=== PATIENT | male | born 1975 | race Caucasian/White ===

== ENCOUNTER 2018-05-28 13:54 | Emergency (ER) | payer OTHER ==
--- NOTE | 2018-05-28 14:16 | ER Document Report ---
ED Medical Screen (RME) - General Chief Complaint: Swelling of Lower Extremity Stated Complaint: LEG/ANKLE SWELLING Time Seen by Provider: 05/28/18 13:59 Notes: 42-year-old male, morbidly obese to the emergency department complaining of persistent left foot and left lower extremity swelling. Had a fusion of his ankle along time ago. Is still in a walking boot a year later. States he had an ultrasound done about 5 months ago and that was negative. Never had a repeat ultrasound done. I have greeted and performed a rapid initial assessment of this patient. A comprehensive ED assessment and evaluation of the patient, analysis of test results and completion of the medical decision making process will be conducted by additional ED providers. TRAVEL OUTSIDE OF THE [place] IN LAST 30 DAYS: No - Related Data Allergies/Adverse Reactions: morphine [Morphine] Allergy (Verified 05/28/18 13:54) Hallucinations Past Medical History - Past Medical History Cardiac Medical History: Reports: Hx Hypertension Pulmonary Medical History: Reports: Hx Pneumonia - bilat Renal/ Medical History: Reports: Hx Kidney Stones. Denies: Hx Peritoneal Dialysis Skin Medical History: Reports Hx Psoriasis Past Surgical History: Reports: Hx Orthopedic Surgery - R KNEE X 3, R THUMB X2, L WRIST Physical Exam - Vital signs Vitals: Temp Pulse Resp BP Pulse Ox 98.9 F 81 22 H 178/83 H 92 05/28/18 14:16 05/28/18 14:16 05/28/18 14:16 05/28/18 14:16 05/28/18 14:16 Course - Vital Signs Vital signs: Temp Pulse Resp BP Pulse Ox 98.9 F 81 22 H 178/83 H 92 05/28/18 14:16 05/28/18 14:16 05/28/18 14:16 05/28/18 14:16 05/28/18 14:16
[2018-05-28 14:18] VITALS: BP 178/83
--- NOTE | 2018-05-28 14:53 | RADIOLOGY REPORT (SQ) ---
EXAM DESCRIPTION: ANKLE LEFT AP/LATERAL COMPLETED DATE/TIME: 05/28/2018 2:35 pm REASON FOR STUDY: pain COMPARISON: None. NUMBER OF VIEWS: Three views. TECHNIQUE: AP, lateral, and oblique radiographic images acquired of the left ankle. LIMITATIONS: None. FINDINGS: MINERALIZATION: Normal. BONES: There is a metallic screw extending through the calcaneus into the talus consistent with posts urgical change from prior fusion. Metallic plate and screws in the anterior talus noted. Plantar ca lcaneal bone spur. JOINTS: No effusions. SOFT TISSUES: No soft tissue swelling. No foreign body. OTHER: No other significant finding. IMPRESSION: Postfusion changes of the left ankle. Plantar calcaneal bone spur. TECHNICAL DOCUMENTATION: JOB ID: [id number] 2010 [employer]- All Rights Reserved Reading location - IP/workstation name: [email or web address]
--- NOTE | 2018-05-28 14:57 | RADIOLOGY REPORT (SQ) ---
EXAM DESCRIPTION: FOOT LEFT 2 VIEWS COMPLETED DATE/TIME: 05/28/2018 2:35 pm REASON FOR STUDY: pain COMPARISON: None. NUMBER OF VIEWS: Three views. TECHNIQUE: AP, lateral and oblique radiographic images acquired of the left foot. LIMITATIONS: None. FINDINGS: MINERALIZATION: Normal. BONES: There is evidence of metallic screws extending through the calcaneus into the talus and a meta llic screw extending through the anterior talus with plate noted along the anterior superior aspect o f the talus with screws. Degenerative changes at the talotibial joint. Plantar calcaneal bone spur. JOINTS: No effusions. SOFT TISSUES: Marked soft tissue swelling of the dorsum of the left foot. OTHER: No other significant finding. IMPRESSION: Postsurgical changes of the anterior talus and postfusion changes of the posterior taloc alcaneal joint. Marked soft tissue swelling dorsum of left foot. TECHNICAL DOCUMENTATION: JOB ID: [id number] SC-[id number] 2010 [employer]- All Rights Reserved Reading location - IP/workstation name: [email or web address]
--- NOTE | 2018-05-28 15:15 | ER Document Report ---
ED Extremity Problem, Lower - General Chief Complaint: Swelling of Lower Extremity Stated Complaint: LEG/ANKLE SWELLING Time Seen by Provider: 05/28/18 13:59 Information source: Patient Notes: Patient is a 42-year-old male who states last April, 1 year ago, he had a left ankle fusion at [facility] by Dr. Blackburn. Patient states since the surgery he has some continued swelling and pain to that left ankle. He states it is not increased over this last month. He states it is worse when he is on his feet at work all day. He states it is better when he wears his brace. Patient denies any fevers or vomiting. He denies any chest pain or shortness of breath. Patient does state that he has some baseline swelling to both legs, but the left leg is always larger than the right. TRAVEL OUTSIDE OF THE [place] IN LAST 30 DAYS: No - HPI Patient complains to provider of: Swelling - See above Location: Ankle - See above Occurred: Other - See above Where: Home Onset/Duration: Persistent Quality of pain: Dull Severity: Moderate Pain Level: 2 Context: Other - See above Recent injury: No Associated symptoms: Other - See above Exacerbated by: Nothing Relieved by: Nothing - Related Data Allergies/Adverse Reactions: morphine [Morphine] Allergy (Verified 05/28/18 13:54) Hallucinations Past Medical History - General Information source: Patient - Social History Smoking Status: Current Every Day Smoker Cigarette use (# per day): No Chew tobacco use (# tins/day): No Smoking Education Provided: No Frequency of alcohol use: None Family History: None - ADOPTED Patient has suicidal ideation: No Patient has homicidal ideation: No - Past Medical History Cardiac Medical History: Reports: Hx Hypertension Pulmonary Medical History: Reports: Hx Pneumonia - bilat Renal/ Medical History: Reports: Hx Kidney Stones. Denies: Hx Peritoneal Dialysis Skin Medical History: Reports Hx Psoriasis Past Surgical History: Reports: Hx Orthopedic Surgery - R KNEE X 3, R THUMB X2, L WRIST Review of Systems - Review of Systems Constitutional: denies: Fever EENT: denies: Eye discharge, Nose discharge Cardiovascular: denies: Chest pain, Palpitations Respiratory: denies: Cough, Hurts to breathe, Short of breath Gastrointestinal: denies: Vomiting Genitourinary: denies: Dysuria Skin: denies: Rash Neurological/Psychological: Other - no slurred speech -: Yes All other systems reviewed and negative Physical Exam - Vital signs Vitals: Temp Pulse Resp BP Pulse Ox 98.9 F 81 22 H 178/83 H 92 05/28/18 14:16 05/28/18 14:16 05/28/18 14:16 05/28/18 14:16 05/28/18 14:16 Notes: Reviewed vital signs and nursing note as charted by RN. CONSTITUTIONAL: Alert and oriented and responds appropriately to questions. Well -appearing; well-nourished HEAD: Normocephalic; atraumatic CARD: Regular rate and rhythm; no murmurs, no gallops RESP: Normal chest excursion without splinting or tachypnea; breath sounds clear and equal bilaterally; no wheezing or rales BACK: The back appears normal and is non-tender to palpation EXT: Patient has some bilateral lower extremity edema that is 1+ pitting. Patient's left lower extremity is larger than his right. No obvious skin breakdown or erythema noted. No fluctuance or induration. Patient is able to fully range of motion his toes, ankle, and knee SKIN: No acute lesions noted NEURO: Moves all extremities equally; Motor and sensory function intact PSYCH: The patient's mood and manner are appropriate. Grooming and personal hygiene are appropriate Course - Re-evaluation Re-evalutation: 05/28/18 15:15 Given the above history and physical examination with the chronicity of the lower extremity edema bilaterally, I will order some basic labs including a BNP. Regarding the left ankle, I do believe a Doppler ultrasound to evaluate for DVT would be beneficial. I do not believe that the patient has any obvious acute infection and the patient agrees with this given that he states he has had no fevers, increased swelling or redness, or vomiting. Patient states he does have a primary care physician that he should follow-up with any also has not seen the surgeon recently. He has both of the phone numbers for both of these providers. EKG shows heart of 70, normal sinus rhythm, normal axis, no obvious ST elevation or depression. 05/28/18 16:24 Doppler ultrasound is negative for DVT 05/28/18 17:02 White blood cell count and chemistry as recorded. X-ray of the foot and ankle social and soft tissue swelling with no obvious displacement. X-ray of the chest shows normal heart size with no obvious pleural effusions. Given the above history and physical examination I will provide the patient a new foot brace and dressings, provide strict return precautions as well as local orthopedic follow-up instructions. I have encouraged the patient to follow-up with the primary care physician as well as his initial orthopedic surgeon. Patient understands these instructions. - Vital Signs Vital signs: Temp Pulse Resp BP Pulse Ox 98.9 F 81 22 H 178/83 H 92 05/28/18 14:16 05/28/18 14:16 05/28/18 14:16 05/28/18 14:16 05/28/18 14:16 - Laboratory Result Diagrams: 05/28/18 16:28 05/28/18 16:28 Laboratory results interpreted by me: 05/28/18 05/28/18 16:28 16:28 MCH 26.7 L RDW 14.9 H Sodium 146.2 H Discharge - Discharge Clinical Impression: Swelling of lower leg Left ankle pain Qualifiers: Chronicity: acute Qualified Code(s): M25.572 - Pain in left ankle and joints of left foot Condition: Good Disposition: HOME, SELF-CARE Additional Instructions: Come back immediately with any increased swelling, fevers, increased redness, chest pain, shortness of breath, weakness or numbness, or any other acute problems. Please follow-up with your primary care physician, Ms. mckee, as well as contact orthopedic surgeon. I have also provided a local orthopedic surgeon as well. Referrals: MICKI MCKEE PA-C [Primary Care Provider] - Follow up as needed JIL SARAH MD [ACTIVE STAFF] - Follow up as needed
--- NOTE | 2018-05-28 15:57 | RADIOLOGY REPORT (SQ) ---
EXAM DESCRIPTION: CHEST 2 VIEWS COMPLETED DATE/TIME: 05/28/2018 3:26 pm REASON FOR STUDY: 5, lower ext edema COMPARISON: 07/26/2015. EXAM PARAMETERS: NUMBER OF VIEWS: two views TECHNIQUE: Digital Frontal and Lateral radiographic views of the chest acquired. RADIATION DOSE: NA LIMITATIONS: none FINDINGS: LUNGS AND PLEURA: No acute infiltrate or effusion. MEDIASTINUM AND HILAR STRUCTURES: No masses or contour abnormalities. HEART AND VASCULAR STRUCTURES: The heart is normal. The pulmonary vasculature is normal. BONES: No acute findings. HARDWARE: None in the chest. OTHER: No other significant finding. IMPRESSION: No acute disease. TECHNICAL DOCUMENTATION: JOB ID: [id number] SC-69 2010 [employer]- All Rights Reserved Reading location - IP/workstation name: [email or web address]
[2018-05-28 16:42] LABS: ABSOLUTE EOSINOPHILS # (AUTO) 0.2 10^3/uL (0.0-0.6); ABSOLUTE LYMPHOCYTES (AUTO) 1.1 10^3/uL (0.5-4.7); ABSOLUTE MONOCYTES (AUTO) 0.6 10^3/uL (0.1-1.4); ABSOLUTE NEUT (AUTO) 6.4 10^3/uL (1.7-8.2); BASOPHILS % (AUTO) 0.6 % (0-2); EOSINOPHILS % (AUTO) 1.9 % (0-6); HEMATOCRIT 42.8 % (37.9-51.0); HEMOGLOBIN 14.1 g/dL (13.5-17.0); LYMPHOCYTES % (AUTO) 13.4 % (13-45); MEAN CORPUSCULAR HEMOGLOBIN 26.7 pg (27.0-33.4); MEAN CORPUSCULAR HGB CONC 32.9 g/dL (32.0-36.0); MEAN CORPUSCULAR VOLUME 81 fl (80-97); MONOCYTES % (AUTO) 7.1 % (3-13); PLATELET COUNT 227 10^3/uL (150-450); RED BLOOD COUNT 5.28 10^6/uL (4.35-5.55); RED CELL DISTRIBUTION WIDTH 14.9 % (11.5-14.0); TOTAL CELLS COUNTED % (AUTO) 100 %; WHITE BLOOD COUNT 8.4 10^3/uL (4.0-10.5)
[2018-05-28 16:50] LABS: ANION GAP 13 (5-19); BLOOD UREA NITROGEN 12 mg/dL (7-20); CALCIUM 9.2 mg/dL (8.4-10.2); CARBON DIOXIDE 29 mmol/L (22-30); CHLORIDE 104 mmol/L (98-107); GLUCOSE 105 mg/dL (75-110); POTASSIUM 3.6 mmol/L (3.6-5.0); SODIUM 146.2 mmol/L (137-145)
--- NOTE | 2018-05-29 10:02 | EKG REPORT ---
SEVERITY:- NORMAL ECG - SINUS RHYTHM : Confirmed by: Chi Pereira 29-May-2018 10:02:10
--- NOTE | 2018-05-29 15:04 | XCELERA REPORT ---
[address] [address] Lower Extremity Venous Evaluation Name: JENNA GALLAGHER Age: 42 yrs Gender: Male : 1975 Patient Status: Emergency Patient Location: ER Study Date: 05/28/2018 03:47 PM Procedure: Color flow and duplex imaging of the veins of the left lower extremity as well as the right Common Femoral vein. Reason For Study: swelling for 1 year Ordering Physician: RICHARD GUY Performed By: Hiren Elder Right Sided Venous Evaluation The right common femoral vein is fully compressible. Spontaneous and phasic flow is present in the right common femoral vein. Left Sided Venous Evaluation Normal vessel filling wall to wall, compression and augmentation as well as Colour flow down to the infrageniculate veins. Interpretation Summary No duplex evidence of DVT or obstruction in the left lower extremity nor in the right Common Femoral vein. : RICHARD GUY [place]
== END 2018-05-28 17:25 | disposition home or self-care (01) ==
LOC: ER 13:54
DX: M79.89 Other specified soft tissue disorders (principal); M25.572 Pain in left ankle and joints of left foot; R60.0 Localized edema; Z98.1 Arthrodesis status; F17.200 Nicotine dependence, unspecified, uncomplicated; I10 Essential (primary) hypertension; Z88.5 Allergy status to narcotic agent
CPT/HCPCS: 36415; 71046; 80048; 83880; 85025; 93005; 93010; 93971; 99284

== ENCOUNTER 2019-01-20 12:43 | Emergency (ER) | payer OTHER ==
[2019-01-20] MEDS ORDERED: ASPIRIN 325 MG TABLET PO ONE (15:15)
--- NOTE | 2019-01-20 15:17 | ER Document Report ---
ED Medical Screen (RME) - General Chief Complaint: Chest Pain Stated Complaint: CHEST PAIN Time Seen by Provider: 01/20/19 15:15 Primary Care Provider: MICKI MOONEY PA-C [Primary Care Provider] - Follow up as needed Mode of Arrival: Ambulatory Information source: Patient TRAVEL OUTSIDE OF THE [place] IN LAST 30 DAYS: No - HPI Patient complains to provider of: CP Onset: Yesterday - pt with onset of CP yessterday with SOB which has continued into today - Related Data Allergies/Adverse Reactions: morphine [Morphine] Allergy (Verified 05/28/18 13:54) Hallucinations Past Medical History - Past Medical History Cardiac Medical History: Reports: Hx Hypertension Pulmonary Medical History: Reports: Hx Pneumonia - bilat Renal/ Medical History: Reports: Hx Kidney Stones. Denies: Hx Peritoneal Dialysis Skin Medical History: Reports Hx Psoriasis Past Surgical History: Reports: Hx Orthopedic Surgery - R KNEE X 3, R THUMB X2, L WRIST Physical Exam - Vital signs Vitals: Temp Pulse Resp BP Pulse Ox 98.0 F 75 24 H 171/98 H 96 01/20/19 13:07 01/20/19 13:07 01/20/19 13:07 01/20/19 13:07 01/20/19 13:07 Course - Vital Signs Vital signs: Temp Pulse Resp BP Pulse Ox 98.0 F 75 24 H 171/98 H 96 01/20/19 13:07 01/20/19 13:07 01/20/19 13:07 01/20/19 13:07 01/20/19 13:07 Doctor's Discharge - Discharge Referrals: MICKI MOONEY PA-C [Primary Care Provider] - Follow up as needed
--- NOTE | 2019-01-20 16:04 | RADIOLOGY REPORT (SQ) ---
EXAM DESCRIPTION: CHEST 2 VIEWS COMPLETED DATE/TIME: 01/20/2019 3:57 pm REASON FOR STUDY: CP COMPARISON: [id number] EXAM PARAMETERS: NUMBER OF VIEWS: two views TECHNIQUE: Digital Frontal and Lateral radiographic views of the chest acquired. RADIATION DOSE: NA LIMITATIONS: none FINDINGS: LUNGS AND PLEURA: No opacities, masses or pneumothorax. No pleural effusion. MEDIASTINUM AND HILAR STRUCTURES: No masses or contour abnormalities. HEART AND VASCULAR STRUCTURES: Heart normal size. No evidence for failure. BONES: No acute findings. HARDWARE: None in the chest. OTHER: No other significant finding. IMPRESSION: NO ACUTE RADIOGRAPHIC FINDING IN THE CHEST. TECHNICAL DOCUMENTATION: JOB ID: [id number] [employer]- All Rights Reserved Reading location - IP/workstation name: [email or web address]
[2019-01-20 16:40] LABS: ABSOLUTE EOSINOPHILS # (AUTO) 0.1 10^3/uL (0.0-0.6); ABSOLUTE LYMPHOCYTES (AUTO) 1.2 10^3/uL (0.5-4.7); ABSOLUTE MONOCYTES (AUTO) 0.6 10^3/uL (0.1-1.4); ABSOLUTE NEUT (AUTO) 5.2 10^3/uL (1.7-8.2); BASOPHILS % (AUTO) 0.6 % (0-2); EOSINOPHILS % (AUTO) 1.8 % (0-6); HEMATOCRIT 42.7 % (37.9-51.0); HEMOGLOBIN 14.4 g/dL (13.5-17.0); MEAN CORPUSCULAR HEMOGLOBIN 27.4 pg (27.0-33.4); MEAN CORPUSCULAR HGB CONC 33.9 g/dL (32.0-36.0); MEAN CORPUSCULAR VOLUME 81 fl (80-97); MONOCYTES % (AUTO) 7.8 % (3-13); PLATELET COUNT 194 10^3/uL (150-450); RED BLOOD COUNT 5.28 10^6/uL (4.35-5.55); SEGMENTED NEUTROPHILS % (AUTO) 72.8 % (42-78); TOTAL CELLS COUNTED % (AUTO) 100 %; WHITE BLOOD COUNT 7.2 10^3/uL (4.0-10.5)
[2019-01-20 16:53] LABS: ALANINE AMINOTRANSFERASE 44 U/L (21-72); ALKALINE PHOSPHATASE 93 U/L (38-126); ANION GAP 10 (5-19); ASPARTATE AMINO TRANSFERASE 28 U/L (17-59); BILIRUBIN,DIRECT 0.1 mg/dL (0.0-0.4); BILIRUBIN,TOTAL 0.4 mg/dL (0.2-1.3); BLOOD UREA NITROGEN 16 mg/dL (7-20); CALCIUM 9.3 mg/dL (8.4-10.2); CARBON DIOXIDE 28 mmol/L (22-30); CHLORIDE 105 mmol/L (98-107); CREATINE KINASE 294 U/L (55-170); GLUCOSE 108 mg/dL (75-110); POTASSIUM 3.9 mmol/L (3.6-5.0); SODIUM 143.3 mmol/L (137-145); TOTAL PROTEIN 6.8 g/dL (6.3-8.2)
[2019-01-20 17:05] LABS: CREATINE KINASE MB 1.52 ng/mL (<4.55)
[2019-01-20 17:18] LABS: TROPONIN I < 0.012 ng/mL
[2019-01-20] MEDS ORDERED: KETOROLAC TROMETHAMINE 60 MG/2 ML SDV IM ONE (20:45)
--- NOTE | 2019-01-20 20:53 | ER Document Report ---
ED General - General Chief Complaint: Chest Pain Stated Complaint: CHEST PAIN Time Seen by Provider: 01/20/19 15:15 Primary Care Provider: MICKI MOONEY PA-C [Primary Care Provider] - Follow up in 3-5 days Mode of Arrival: Ambulatory Notes: Patient is a 43-year-old male with past medical history of morbid obesity, sleep apnea, lymphedema, presents with stabbing left-sided chest discomfort. Patient describes the pain as starting this morning, being a stabbing, intermittent discomfort. Describes it as being moderate in intensity. Patient describes that the pain comes and goes. No obvious triggering or alleviating factor. Denies a history of similar symptoms in the past. States that he has not had any associated diaphoresis, nausea, vomiting but has intimately felt somewhat short of breath. No history of DVT or pulmonary embolus. No cardiac history. No trauma to the chest wall. Has not seen his primary care physician regarding today's concerns. TRAVEL OUTSIDE OF THE [place] IN LAST 30 DAYS: No - Related Data Allergies/Adverse Reactions: morphine [Morphine] Allergy (Verified 05/28/18 13:54) Hallucinations Past Medical History - General Information source: Patient - Social History Smoking Status: Never Smoker Chew tobacco use (# tins/day): No Frequency of alcohol use: Occasional Drug Abuse: None Lives with: Spouse/Significant other Family History: Reviewed & Not Pertinent Patient has suicidal ideation: No Patient has homicidal ideation: No - Past Medical History Cardiac Medical History: Reports: Hx Hypertension Pulmonary Medical History: Reports: Hx Pneumonia - bilat Renal/ Medical History: Reports: Hx Kidney Stones. Denies: Hx Peritoneal Dialysis Skin Medical History: Reports Hx Psoriasis Past Surgical History: Reports: Hx Orthopedic Surgery - R KNEE X 3, R THUMB X2, L WRIST Review of Systems - Review of Systems Notes: Constitutional: Negative for fever. HENT: Negative for sore throat. Eyes: Negative for visual changes. Cardiovascular: Positive for chest pain. Respiratory: Positive for shortness of breath. Gastrointestinal: Negative for abdominal pain, vomiting or diarrhea. Genitourinary: Negative for dysuria. Musculoskeletal: Negative for back pain. Skin: Negative for rash. Neurological: Negative for headaches, weakness or numbness. 10 point ROS negative except as marked above and in HPI. Physical Exam - Vital signs Vitals: Temp Pulse Resp BP Pulse Ox 98.0 F 75 24 H 171/98 H 96 03/29/19 13:07 01/20/19 13:07 01/20/19 13:07 01/20/19 13:07 01/20/19 13:07 Interpretation: Hypertensive Notes: PHYSICAL EXAMINATION: GENERAL: Well-appearing, well-nourished and in no acute distress. HEAD: Atraumatic, normocephalic. EYES: Pupils equal round and reactive to light, extraocular movements intact, sclera anicteric, conjunctiva are normal. ENT: nares patent, oropharynx clear without exudates. Moist mucous membranes. NECK: Normal range of motion, supple without lymphadenopathy LUNGS: Breath sounds clear to auscultation bilaterally and equal. No wheezes rales or rhonchi. HEART: Regular rate and rhythm without murmurs ABDOMEN: Soft, morbidly obese abdomen, nontender, normoactive bowel sounds. No guarding, no rebound. No masses appreciated. EXTREMITIES: Normal range of motion, bilateral lower extremity edema more prominent on the left versus the right which patient states is baseline. NEUROLOGICAL: No focal neurological deficits. Moves all extremities spontaneously and on command. PSYCH: Normal mood, normal affect. SKIN: Warm, Dry, normal turgor, no rashes or lesions noted. Course - Re-evaluation Re-evalutation: 01/20/19 20:51 Presentation of chest pain in an otherwise well appearing patient. Low clinical suspicion for ACS given clinical history, exam, EKG without ST elevations or depressions, and negative initial troponin. HEART score less than or equal to 3. PE also seems unlikely given clinical history, absence of tachycardia . Patient is PERC criteria negative. D-dimer sent in triage is noted to be normal. CXR without evidence of pneumothorax or pneumonia. No widened mediastinum. Aortic dissection also seems unlikely given history, symmetric pulses, CXR, and vitals. Delta troponin remains normal. Chest pain is likewise reproducible on palpation of the left chest appears to be most probably musculoskeletal in origin although I have informed the patient this is not a definitive diagnosis. Overall assessment: chest pain in a patient without evidence of cardiac or other serious etiology on workup today. I discussed with patient that, based on their age, risk factors and emergency department testing today, the likelihood that their symptoms are related to a heart attack is very low (estimated risk of heart attack or over the next 30 days of less than 1%). The patient demonstrates decision making capacity and has verbalized an understanding of these risks to me. Based on this, the patient has chosen to follow-up as an outpatient. Usual chest pain return precautions reviewed. The patient states understanding and agreement with this plan. - Vital Signs Vital signs: Temp Pulse Resp BP Pulse Ox 98.5 F 75 19 168/102 H 92 01/20/19 22:06 01/20/19 13:07 01/20/19 22:01 01/20/19 22:01 01/20/19 22:01 - Laboratory Result Diagrams: 01/20/19 16:20 01/20/19 16:20 Laboratory results interpreted by me: 01/20/19 01/20/19 16:20 16:20 RDW 15.0 H Creatine Kinase 294 H - Diagnostic Test Radiology reviewed: Image reviewed, Reports reviewed Radiology results interpreted by me: 01/20/19 20:51 Chest x-ray: No acute infiltrate or pneumothorax - EKG Interpretation by Me Additional EKG results interpreted by me: 01/20/19 20:51 Sinus rhythm, rate 72. No ST elevations or depressions. QTC is 430. Discharge - Discharge Clinical Impression: Morbid obesity, Essential hypertension Chest pain Qualifiers: Chest pain type: unspecified Qualified Code(s): R07.9 - Chest pain, unspecified Condition: Good Disposition: HOME, SELF-CARE Additional Instructions: You were seen today for chest pain. The exact cause of your pain is unclear. However, based on your cardiac enzyme testing, chest x-ray, and EKG it does not appear that it is from an immediately life-threatening cause at this time. Although your testing here is normal is critical that you follow-up with your primary care physician for continued evaluation of this chest pain and possible stress testing. I recommended you see your physician within the next 24-48 hours to be evaluated for consideration of a stress test. Please return to emergency department immediately if you have worsening of your chest pain, shortness of breath, vomiting, become unable to exert yourself due to pain or difficulty breathing, you pass out, or have any pain that radiates into your arms, jaw, or back. Please also return if you have any additional symptoms that are concerning to you. Referrals: MICKI MOONEY PA-C [Primary Care Provider] - Follow up in 3-5 days
--- NOTE | 2019-01-20 21:03 | EKG REPORT ---
SEVERITY:- NORMAL ECG - SINUS RHYTHM : Confirmed by: Dalia Rutherford MD 20-Jan-2019 21:02:36
[2019-01-20 22:05] VITALS: BP 168/102
== END 2019-01-20 22:06 | disposition home or self-care (01) ==
LOC: ER 12:43
DX: R07.9 Chest pain, unspecified (principal); R06.02 Shortness of breath; I10 Essential (primary) hypertension; E66.01 Morbid (severe) obesity due to excess calories; R60.0 Localized edema; Z88.5 Allergy status to narcotic agent
CPT/HCPCS: 93005; 99284; 96372; 36415; 82553; 82550; 85025; 80053; 84484; 85379; 71046; 93010; J1885

== ENCOUNTER 2019-10-27 15:28 | Inpatient (IN) | payer OTHER ==
--- NOTE | 2019-10-27 16:17 | ER Document Report ---
ED Medical Screen (RME) - General Chief Complaint: Shortness Of Breath Stated Complaint: LEG SWELLING/TROUBLE BREATHING Time Seen by Provider: 10/27/19 16:11 Primary Care Provider: MICKI MOONEY PA-C [Primary Care Provider] - Follow up as needed Notes: Patient is a 44-year-old male who presents to the emergency department with shortness of breath, difficulty breathing, and left lower leg pain. Patient has a history of lymphedema and states that his leg pain started about 3 days ago and his shortness of breath started yesterday. Exam: Diminished breath sounds bilateral lobes. Edema noted to bilateral lower extremities, left greater than right. I have greeted and performed a rapid initial assessment of this patient. A comprehensive ED assessment and evaluation of the patient, analysis of test results and completion of medical decision making process will be conducted by an additional ED providers. TRAVEL OUTSIDE OF THE [place] IN LAST 30 DAYS: No - Related Data Allergies/Adverse Reactions: morphine [Morphine] Allergy (Verified 10/27/19 16:05) Hallucinations Home Medications: [facility] Past Medical History - Social History Frequency of alcohol use: Rare Drug Abuse: None - Past Medical History Cardiac Medical History: Reports: Hx Hypertension Pulmonary Medical History: Reports: Hx Pneumonia - bilat Renal/ Medical History: Reports: Hx Kidney Stones. Denies: Hx Peritoneal Dialysis Skin Medical History: Reports Hx Psoriasis Past Surgical History: Reports: Hx Orthopedic Surgery - R KNEE X 3, R THUMB X2, L WRIST Doctor's Discharge - Discharge Referrals: MICKI MOONEY PA-C [Primary Care Provider] - Follow up as needed
[2019-10-27 17:20] LABS: VENOUS BLOOD BASE EXCESS 4.1 mmol/L; VENOUS BLOOD HCO3 28.4 mmol/L (20-32); VENOUS BLOOD PCO2 41.2 mmHg (35-63); VENOUS BLOOD PH 7.46 (7.30-7.42)
--- NOTE | 2019-10-27 17:33 | RADIOLOGY REPORT (SQ) ---
EXAM DESCRIPTION: VENOUS UNILATERAL LOWER COMPLETED DATE/TIME: 10/27/2019 5:19 pm REASON FOR STUDY: RLE pain COMPARISON: None. TECHNIQUE: Dynamic and static nunez scale and color images acquired of the left leg venous system. Se lected spectral images acquired with additional compression and augmentation maneuvers. The contralat eral common femoral vein and saphenofemoral junction were also imaged. Images stored on PACS. LIMITATIONS: Portions of distal superficial vein are not able to be identified due to body habitus. FINDINGS: COMMON FEMORAL: Normal phasicity, compression and augmentation. No visualized echogenic ma terial on nunez scale. No defects on color images. FEMORAL: Normal compression and augmentation. No visualized echogenic material on nunez scale. No defe cts on color images. POPLITEAL: Normal compression, augmentation. No visualized echogenic material on nunez scale. No defec ts on color images. CALF VESSELS: Normal compression, augmentation. No visualized echogenic material on nunez scale. No de fects on color images. GSV and SSV: Normal compression, augmentation. No visualized echogenic material on nunez scale. No def ects on color images. ANY DEEP VENOUS INSUFFICIENCY: Not evaluated. ANY EVIDENCE OF POPLITEAL CYST: No. OTHER: No other significant finding. CONTRALATERAL COMMON FEMORAL VEIN AND SAPHENOFEMORAL JUNCTION: Normal phasicity, compression and augmentation. No visualized echogenic material on nunez scale. No de fects on color images. IMPRESSION: NO EVIDENCE DVT OR SVT IN THE LEFT LEG.Portions of distal superficial vein are not able to be identified due to body habitus. TECHNICAL DOCUMENTATION: JOB ID: [id number] [id number] 2010 [employer]- All Rights Reserved Reading location - IP/workstation name: [email or web address]
[2019-10-27 17:37] LABS: ALBUMIN 3.3 g/dL (3.5-5.0); ALKALINE PHOSPHATASE 70 U/L (38-126); ANION GAP 9 (5-19); ASPARTATE AMINO TRANSFERASE 62 U/L (17-59); BILIRUBIN,DIRECT 0.3 mg/dL (0.0-0.4); BILIRUBIN,TOTAL 0.6 mg/dL (0.2-1.3); BLOOD UREA NITROGEN 30 mg/dL (7-20); CARBON DIOXIDE 29 mmol/L (22-30); CHLORIDE 98 mmol/L (98-107); CREATINE KINASE 1153 U/L (55-170); GLUCOSE 130 mg/dL (75-110); HEMATOCRIT 37.4 % (37.9-51.0); HEMOGLOBIN 12.4 g/dL (13.5-17.0); MEAN CORPUSCULAR HEMOGLOBIN 26.4 pg (27.0-33.4); MEAN CORPUSCULAR HGB CONC 33.2 g/dL (32.0-36.0); MEAN CORPUSCULAR VOLUME 80 fl (80-97); PLATELET COUNT 153 10^3/uL (150-450); POTASSIUM 3.1 mmol/L (3.6-5.0); RED BLOOD COUNT 4.71 10^6/uL (4.35-5.55); RED CELL DISTRIBUTION WIDTH 15.3 % (11.5-14.0); WHITE BLOOD COUNT 18.1 10^3/uL (4.0-10.5)
--- NOTE | 2019-10-27 17:39 | RADIOLOGY REPORT (SQ) ---
EXAM DESCRIPTION: CHEST SINGLE VIEW COMPLETED DATE/TIME: 10/27/2019 5:27 pm REASON FOR STUDY: shortness of breath COMPARISON: 01/20/2019 TECHNIQUE: Single frontal radiographic view of the chest acquired. NUMBER OF VIEWS: One view. LIMITATIONS: None. FINDINGS: LUNGS AND PLEURA: No pneumothorax. Left lateral basilar consolidation - pleural effusion. MEDIASTINUM AND HILAR STRUCTURES: Stable. HEART AND VASCULAR STRUCTURES: Stable. BONES: No acute findings. HARDWARE: None in the chest. OTHER: No other significant finding. IMPRESSION: Left lateral basilar consolidation - pleural effusion. TECHNICAL DOCUMENTATION: JOB ID: [id number] [id number] 2010 [employer]- All Rights Reserved Reading location - IP/workstation name: [email or web address]
[2019-10-27 17:52] LABS: TROPONIN I 1.2 ng/mL
[2019-10-27 18:06] LABS: ABSOLUTE LYMPHOCYTES# (MANUAL) 1.3 10^3/uL (0.5-4.7); ABSOLUTE MONOCYTES # (MANUAL) 0.2 10^3/uL (0.1-1.4); ANISOCYTOSIS SLIGHT; BAND NEUTROPHILS % (MANUAL) 8 % (3-5); BASOPHILS % (MANUAL) 0 % (0-2); EOSINOPHILS % (MANUAL) 0 % (0-6); HYPOCHROMASIA SLIGHT; LYMPHOCYTES % (MANUAL) 7 % (13-45); MONOCYTES % (MANUAL) 1 % (3-13); PLATELET COMMENT ADEQUATE; SEGMENTED NEUTROPHILS % (MAN) 84 % (42-78); TOTAL CELLS COUNTED 100
[2019-10-27 18:17] LABS: A TYPE INFLUENZA AG NEGATIVE (NEGATIVE); B INFLUENZA AG NEGATIVE (NEGATIVE)
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
[2019-10-27] MEDS ORDERED: NORMAL SALINE 500 ML IV ONE (19:01)
[2019-10-27] MEDS ORDERED: NORMAL SALINE 1000 ML 1,000 ML IV ONE (19:01)
[2019-10-27] MEDS ORDERED: ONDANSETRON HCL INJ/PF 4 MG/2 ML SDV IV ONE (19:03)
[2019-10-27] MEDS ORDERED: VANCOMYCIN HCL INJ 1000 MG VIAL IV ONE ×3 (19:05→23:58)
[2019-10-27] MEDS ORDERED: DIPH/PERTUSS(ACELL)/TETANUS VAC/PF 0.5 ML SYR (>=10YO) IM ONE (19:05)
[2019-10-27] MEDS ORDERED: LEVOFLOXACIN 750 MG/D5W RTU 750 MG/150 ML RTUPB IV ONE (19:06)
--- NOTE | 2019-10-27 20:03 | EKG REPORT ---
SEVERITY:- ABNORMAL ECG - SINUS TACHYCARDIA MULTIPLE ATRIAL PREMATURE COMPLEXES PROBABLE LEFT ATRIAL ABNORMALITY BORDERLINE LEFT AXIS DEVIATION : Confirmed by: Guanako Mccormick MD 27-Oct-2019 20:02:30
--- NOTE | 2019-10-27 20:04 | EKG REPORT ---
SEVERITY:- ABNORMAL ECG - SINUS TACHYCARDIA MULTIPLE ATRIAL PREMATURE COMPLEXES BORDERLINE LEFT AXIS DEVIATION : Confirmed by: Guanako Mccormick MD 27-Oct-2019 20:02:58
[2019-10-27] MEDS: HYDROMORPHONE HCL INJ/PF 2 MG/ML AMPULE IV PRN (20:16)
[2019-10-27] MEDS ORDERED: HEPARIN SOD (PORCINE) 1,000 UNIT/ML 10 ML VIAL IV ONE (21:39)
[2019-10-27] MEDS ORDERED: HEPARIN SODIUM,PORCINE/D5W 25,000 UNIT/250 ML RTUINJ IV PRN (21:39)
[2019-10-27 23:19] LABS: INTERNATIONAL RATION (INR) 1.48
[2019-10-27 23:20] LABS: PARTIAL THROMBOPLASTIN TIME 38.9 SEC (23.5-35.8)
[2019-10-28 00:13] LABS: APPEARANCE,URINE CLEAR; BILIRUBIN,URINE NEGATIVE (NEGATIVE); COLOR,URINE YELLOW; GLUCOSE, URINE NEGATIVE (NEGATIVE); KETONES,URINE NEGATIVE (NEGATIVE); LEUKOCYTE ESTERASE,URINE NEGATIVE (NEGATIVE); NITRITE,URINE NEGATIVE (NEGATIVE); PROTEIN,URINE 30 mg/dL (NEGATIVE); URINE SPECIFIC GRAVITY 1.014; UROBILINOGEN,URINE NEGATIVE mg/dL (<2.0)
[2019-10-28] MEDS ORDERED: POTASSIUM CHLORIDE 10 MEQ TABLET.ER PO ONE (03:55)
[2019-10-28] MEDS ORDERED: ACETAMINOPHEN 325 MG TABLET PO PRN (03:59)
[2019-10-28] MEDS ORDERED: IPRATROPIUM/ALBUTEROL 0.5-2.5 MG/3 ML AMPUL NEB PRN (03:59)
[2019-10-28] MEDS ORDERED: MAG HYDROX/AL HYDROX/SIMETH SUSP 30 ML UDCUP PO PRN (03:59)
[2019-10-28 04:07] LABS: INTERNATIONAL RATION (INR) 1.34; PROTHROMBIN TIME 16.6 SEC (11.4-15.4)
[2019-10-28 04:08] LABS: PARTIAL THROMBOPLASTIN TIME 40.5 SEC (23.5-35.8)
[2019-10-28] MEDS ORDERED: METOPROLOL TARTRATE 50 MG TABLET PO ONE (04:45)
[2019-10-28] MEDS ORDERED: LOSARTAN POTASSIUM 50 MG TABLET PO ONE (04:45)
[2019-10-28 06:31] LABS: CHOLESTEROL 80.48 mg/dL (0-200); TRIGLYCERIDES 229 mg/dL (<150)
--- NOTE | 2019-10-28 06:42 | PDOC H&P ---
History of Present Illness Admission Date/PCP: 10/28/19 04:42 MICKI MOONEY PA-C Patient complains of: Fever and left leg pain History of Present Illness: JENNA GALLAGHER is a 44 year old male with a past medical history of morbid obesity, obstructive sleep apnea, diabetes, left lower extremity venous stasis, tinea pedis and debility. He presents with 2 days of flulike symptoms and increased pain and swelling to his left lower extremity. In the emergency depa rtment he is found with hypoxia and tachycardia. Concerns for DVT and PE prompted CTA chest at [facility] which was negative for PE, vascular Doppler was negative for DVT. He is referred to the hospitalist for left leg cellulitis with bandemia. Patient admits several previous episodes of cellulitis to this leg. No recent antibiotics Past Medical History Cardiac Medical History: Reports: Hypertension Pulmonary Medical History: Reports: Bronchitis, Pneumonia - bilat, Sleep Apnea Endocrine Medical History: Reports: Diabetes Mellitus Type 1, Obesity Skin Medical History: Reports: Psoriasis Past Surgical History Past Surgical History: Reports: Orthopedic Surgery - R KNEE X 3, R THUMB X2, L WRIST Social History Information Source: Patient Smoking Status: Former Smoker Electronic Cigarette use?: No - Advance Directive Resuscitation Status: Full Code Family History Family History: DM, Hypertension Parental Family History Reviewed: Yes Children Family History Reviewed: Yes Sibling(s) Family History Reviewed.: Yes Medication/Allergy Home Medications: Metoprolol Tartrate [Lopressor 25 mg Tablet] 25 mg PO Q12 #14 tab 07/26/15 Ondansetron [Zofran Odt] 8 mg PO Q8HP PRN #10 tab.rapdis 03/03/16 Tamsulosin HCl [Flomax 0.4 mg Cap.sr] 0.4 mg PO DAILY #10 cap.sr.24h 03/03/16 Allergies/Adverse Reactions: morphine [Morphine] Allergy (Verified 10/27/19 16:05) Hallucinations Review of Systems Constitutional: PRESENT: as per HPI, chills, fatigue, fever(s), weakness Eyes: ABSENT: visual disturbances Ears: ABSENT: hearing changes Cardiovascular: PRESENT: dyspnea on exertion, edema. ABSENT: chest pain, orthropnea, palpitations Respiratory: PRESENT: as per HPI. ABSENT: cough, hemoptysis, sputum Gastrointestinal: ABSENT: abdominal pain, constipation, diarrhea, hematemesis, hematochezia, nausea, vomiting Genitourinary: ABSENT: dysuria, hematuria Musculoskeletal: PRESENT: muscle weakness. ABSENT: joint swelling Integumentary: PRESENT: as per HPI, erythema. ABSENT: rash, wounds Neurological: ABSENT: abnormal gait, abnormal speech, confusion, dizziness, focal weakness, syncope Psychiatric: ABSENT: anxiety, depression, homidical ideation, suicidal ideation Endocrine: ABSENT: cold intolerance, heat intolerance, polydipsia, polyuria Hematologic/Lymphatic: ABSENT: easy bleeding, easy bruising Physical Exam Vital Signs: Temp Pulse Resp BP Pulse Ox 98.1 F 88 24 H 164/87 H 96 10/28/19 03:36 10/27/19 23:10 10/28/19 05:01 10/28/19 05:01 10/28/19 05:20 Intake & Output 10/26/19 10/27/19 10/28/19 11:59 11:59 11:59 Intake Total 1447 Balance 1447 Weight 222.6 kg General appearance: PRESENT: cooperative, disheveled, morbidly obese, severe distress, well-developed, well-nourished Head exam: PRESENT: atraumatic, normocephalic Eye exam: PRESENT: conjunctiva pink, EOMI, PERRLA. ABSENT: scleral icterus Ear exam: PRESENT: normal external ear exam Mouth exam: PRESENT: moist, tongue midline Neck exam: ABSENT: carotid bruit, JVD, lymphadenopathy, thyromegaly Respiratory exam: PRESENT: accessory muscle use, crackles, prolonged expiratory phas. ABSENT: rales, rhonchi, wheezes Cardiovascular exam: PRESENT: tachycardia. ABSENT: diastolic murmur, rubs, systolic murmur Pulses: PRESENT: normal dorsalis pedis pul Vascular exam: PRESENT: normal capillary refill GI/Abdominal exam: PRESENT: normal bowel sounds, soft. ABSENT: distended, guarding, mass, organolmegaly, rebound, tenderness Rectal exam: PRESENT: deferred Extremities exam: PRESENT: tenderness, +2 edema Neurological exam: PRESENT: alert, awake, oriented to person, oriented to place, oriented to time, oriented to situation, CN II-XII grossly intact. ABSENT: motor sensory deficit Psychiatric exam: PRESENT: appropriate affect, normal mood. ABSENT: homicidal ideation, suicidal ideation Skin exam: PRESENT: erythema, other - Underlying venous stasis with circumferential erythema from foot to knee, open ulcers on the posterior leg, fissuring and calluses of the feet Results Laboratory Results: 10/27/19 16:50 10/27/19 16:50 10/27/19 10/27/19 10/27/19 16:50 16:50 16:50 WBC 18.1 H RBC 4.71 Hgb 12.4 L Hct 37.4 L MCV 80 MCH 26.4 L MCHC 33.2 RDW 15.3 H Plt Count 153 Seg Neutrophils % Not Reportable VBG pH 7.46 H VBG pCO2 41.2 VBG HCO3 28.4 VBG Base Excess 4.1 Sodium 136.0 L Potassium 3.1 L Chloride 98 Carbon Dioxide 29 Anion Gap 9 BUN 30 H Creatinine 1.09 Est GFR ( Amer) > 60 Glucose 130 H Lactic Acid Calcium 8.0 L Magnesium 1.7 Total Bilirubin 0.6 AST 62 H Alkaline Phosphatase 70 Total Protein 6.0 L Albumin 3.3 L Urine Color Urine Appearance Urine pH Ur Specific [place] Urine Protein Urine Glucose (UA) Urine Ketones Urine Blood Urine Nitrite Ur Leukocyte Esterase Urine WBC (Auto) Urine RBC (Auto) 10/27/19 10/27/19 19:12 22:46 WBC RBC Hgb Hct MCV MCH MCHC RDW Plt Count Seg Neutrophils % VBG pH VBG pCO2 VBG HCO3 VBG Base Excess Sodium Potassium Chloride Carbon Dioxide Anion Gap BUN Creatinine Est GFR ( Amer) Glucose Lactic Acid 1.1 Calcium Magnesium Total Bilirubin AST Alkaline Phosphatase Total Protein Albumin Urine Color YELLOW Urine Appearance CLEAR Urine pH 6.0 Ur Specific [place] 1.014 Urine Protein 30 H Urine Glucose (UA) NEGATIVE Urine Ketones NEGATIVE Urine Blood MODERATE H Urine Nitrite NEGATIVE Ur Leukocyte Esterase NEGATIVE Urine WBC (Auto) 3 Urine RBC (Auto) 0 10/27/19 10/27/19 10/27/19 16:50 16:50 20:10 Creatine Kinase 1153 H Troponin I 1.200 0.986 NT-Pro-B Natriuret Pep 497 H Impressions: Chest X-Ray 10/27/19 16:18 IMPRESSION: Left lateral basilar consolidation - pleural effusion. Venous Doppler Study 10/27/19 16:19 IMPRESSION: NO EVIDENCE DVT OR SVT IN THE LEFT LEG.Portions of distal garcia perficial vein are not able to be identified due to body habitus. Assessment and Plan - Diagnosis (1) Obstructive sleep apnea Is this a current diagnosis for this admission?: Yes Plan: Avoid cervical flexion, BiPAP while sleeping (2) Diabetes Is this a current diagnosis for this admission?: Yes Plan: Outpatient regiment with Humalog sliding scale (3) Hypoxia Is this a current diagnosis for this admission?: Yes Plan: Secondary to morbid obesity hypoventilation syndrome, BiPAP and supplemental oxygen (4) Left leg cellulitis Is this a current diagnosis for this admission?: Yes Plan: Complicated by venous stasis and tinea pedis, terbinafine, elevation, empiric antibiotics, follow-up blood culture and CBC - Time Time Spent with patient: 25-34 minutes - Inpatient Certification Medical Necessity: Need Close Monitoring Due to Risk of Patient Decompensation
[2019-10-28 06:43] LABS: CREATINE KINASE MB 2.67 ng/mL (<4.55); TROPONIN I 0.542 ng/mL
[2019-10-28 06:45] LABS: DIRECT LDL < 30 mg/dL (<100); VLDL CHOLESTEROL 45.8 mg/dL (10-31)
[2019-10-28] MEDS: TERBINAFINE HCL 250 MG TABLET PO SCH (10:49)
[2019-10-28] MEDS: DOCUSATE SODIUM 100 MG CAPSULE PO SCH ×2 (10:49→18:27)
[2019-10-28] MEDS: CEFTRIAXONE 1 GM/D5W RTU 1 GM/50 ML RTUPB IV SCH (10:55)
[2019-10-28] MEDS: HEPARIN SOD (PORCINE) 5,000 UNIT/ML 1 ML VIAL SUBCUT SCH ×2 (11:03→18:31)
[2019-10-28] MEDS ORDERED: INFLUENZA QUAD (6MOS+) 2019-20 VAC 0.5 ML SYR IM ONE (15:38)
[2019-10-28 15:54] LABS: CREATINE KINASE MB 2.62 ng/mL (<4.55)
[2019-10-28 16:02] LABS: TROPONIN I 0.359 ng/mL
[2019-10-28] MEDS: GUAIFENESIN SYRP 200 MG/10 ML UDC PO PRN (16:19)
--- NOTE | 2019-10-28 19:10 | Progress Note ---
Provider Note Provider Note: Is a 44-year-old male with a past medical history of hypertension, bronchitis, morbid obesity, LIZABETH, diabetes, left lower extremity venous stasis, tenia PDA, debility who was admitted early this morning by the hull drafter for left leg cellulitis. Overnight events, vital signs, Laboratory evaluation (WBCs 18.1, hypokalemia of 3.1, CK 1153, initial troponin I 0.200, A1c 7.2), imaging reports, and orders reviewed. Agree with the plan of care as established by the previous provider. Blood cultures are pending. Patient continues on IV Rocephin and p.o. Lamisil. Keep extremity elevated. Heparin drip is discontinued as PE and DVT have been ruled out; continue subcutaneous heparin for DVT prophylaxis. Troponins are trending down
[2019-10-28] MEDS: METOPROLOL TARTRATE 50 MG TABLET PO SCH (21:04)
[2019-10-28 23:09] LABS: CREATINE KINASE MB 2.04 ng/mL (<4.55)
[2019-10-28 23:15] LABS: TROPONIN I 0.256 ng/mL
[2019-10-29] MEDS: HEPARIN SOD (PORCINE) 5,000 UNIT/ML 1 ML VIAL SUBCUT SCH ×3 (01:09→18:39)
[2019-10-29 04:38] LABS: ABSOLUTE BASOPHILS # (AUTO) 0.1 10^3/uL (0.0-0.2); ABSOLUTE LYMPHOCYTES (AUTO) 1.1 10^3/uL (0.5-4.7); ABSOLUTE NEUT (AUTO) 8.6 10^3/uL (1.7-8.2); BASOPHILS % (AUTO) 0.8 % (0-2); EOSINOPHILS % (AUTO) 0.3 % (0-6); HEMATOCRIT 38.5 % (37.9-51.0); HEMOGLOBIN 12.5 g/dL (13.5-17.0); LYMPHOCYTES % (AUTO) 9.8 % (13-45); MEAN CORPUSCULAR HEMOGLOBIN 26.3 pg (27.0-33.4); MEAN CORPUSCULAR HGB CONC 32.6 g/dL (32.0-36.0); MEAN CORPUSCULAR VOLUME 81 fl (80-97); MONOCYTES % (AUTO) 9.2 % (3-13); PLATELET COUNT 136 10^3/uL (150-450); RED BLOOD COUNT 4.78 10^6/uL (4.35-5.55); RED CELL DISTRIBUTION WIDTH 15.2 % (11.5-14.0); SEGMENTED NEUTROPHILS % (AUTO) 79.9 % (42-78); TOTAL CELLS COUNTED % (AUTO) 100 %; WHITE BLOOD COUNT 10.8 10^3/uL (4.0-10.5)
[2019-10-29 04:58] LABS: ANION GAP 8 (5-19); BLOOD UREA NITROGEN 24 mg/dL (7-20); CALCIUM 8.2 mg/dL (8.4-10.2); CARBON DIOXIDE 30 mmol/L (22-30); CHLORIDE 101 mmol/L (98-107); GLUCOSE 138 mg/dL (75-110); POTASSIUM 3.6 mmol/L (3.6-5.0)
[2019-10-29] MEDS: CEFTRIAXONE 1 GM/D5W RTU 1 GM/50 ML RTUPB IV SCH (09:12)
[2019-10-29] MEDS: TERBINAFINE HCL 250 MG TABLET PO SCH (09:13)
[2019-10-29] MEDS: LOSARTAN POTASSIUM 50 MG TABLET PO SCH (09:13)
[2019-10-29] MEDS: DOCUSATE SODIUM 100 MG CAPSULE PO SCH ×2 (09:13→18:41)
[2019-10-29] MEDS: METOPROLOL TARTRATE 50 MG TABLET PO SCH ×2 (09:13→22:45)
[2019-10-29] MEDS: GUAIFENESIN SYRP 200 MG/10 ML UDC PO PRN (10:07)
[2019-10-29] MEDS: HYDROMORPHONE HCL INJ/PF 2 MG/ML AMPULE IV PRN (10:07)
[2019-10-29] MEDS ORDERED: GLUCAGON,HUMAN RECOMB 1 MG INJ IM PRN (15:15)
[2019-10-29] MEDS ORDERED: DEXTROSE 40% GEL 15 GM TUBE PO PRN ×2 (15:15)
[2019-10-29] MEDS ORDERED: DEXTROSE 50%-WATER 25 GM/50 ML DISP.SYRIN IV PRN ×2 (15:15)
--- NOTE | 2019-10-29 15:19 | PDOC PROGRESS REPORT ---
Subjective Progress Note for:: 10/29/19 Subjective:: Is a 44-year-old male with a past medical history of hypertension, bronchitis, morbid obesity, LIZABETH, diabetes, left lower extremity venous stasis, tenia PDA, debility who was 10/28/19 for left leg cellulitis. The patient was seen on morning rounds. He was found sitting up to the chair, comfortably, on room air eating his breakfast. He reports slight worsening of edema to the left lower extremity but does note that erythema seems to have improved slightly. He does admit to prior history of lymphedema and use of compression dressings; has not followed up with lymphedema or wound care clinic in quite some time. He denies fever, chills, chest pain, palpitations, dyspnea, orthopnea, cough, abdominal pain, nausea vomiting and diarrhea. He has no new questions or concerns. No concerns per nursing. Reason For Visit: LEFT LEG CELLULITIS,MORBID OBESITY,ELEVATED TROP Physical Exam Vital Signs: Temp Pulse Resp BP Pulse Ox 97.7 F 65 18 122/60 92 10/29/19 12:11 10/29/19 12:11 10/29/19 12:11 10/29/19 12:11 10/29/19 12:11 Intake & Output 10/28/19 10/29/19 10/30/19 06:59 06:59 06:59 Intake Total 1447 1836 530 Output Total 975 500 Balance 1447 861 30 Weight 222.6 kg 199.4 kg General appearance: PRESENT: no acute distress, cooperative, disheveled, morbidly obese, well-developed, well-nourished Head exam: PRESENT: atraumatic, normocephalic Eye exam: PRESENT: conjunctiva pink, EOMI, PERRLA. ABSENT: scleral icterus Ear exam: PRESENT: normal external ear exam Mouth exam: PRESENT: moist, tongue midline Respiratory exam: PRESENT: clear to auscultation charlette, decreased breath sounds - Bibasilar, symmetrical, unlabored. ABSENT: rales, rhonchi, wheezes Cardiovascular exam: PRESENT: RRR, +S1, +S2. ABSENT: diastolic murmur, rubs, systolic murmur Pulses: PRESENT: normal dorsalis pedis pul Vascular exam: PRESENT: normal capillary refill GI/Abdominal exam: PRESENT: normal bowel sounds, soft. ABSENT: distended, guarding, mass, organolmegaly, rebound, tenderness Rectal exam: PRESENT: deferred Extremities exam: PRESENT: full ROM, +2 edema - Left lower extremity. ABSENT: calf tenderness, clubbing, pedal edema Neurological exam: PRESENT: alert, awake, oriented to person, oriented to place, oriented to time, oriented to situation, CN II-XII grossly intact. ABSENT: motor sensory deficit Psychiatric exam: PRESENT: appropriate affect, normal mood. ABSENT: homicidal ideation, suicidal ideation Skin exam: PRESENT: dry, erythema - Circumferential erythema from foot to knee; serous weeping posteriorly. Fissured calluses of bilateral feet., warm. ABSENT: cyanosis, rash Results Laboratory Results: 10/29/19 03:53 10/29/19 03:53 10/29/19 10/29/19 03:53 03:53 WBC 10.8 H RBC 4.78 Hgb 12.5 L Hct 38.5 MCV 81 MCH 26.3 L MCHC 32.6 RDW 15.2 H Plt Count 136 L Seg Neutrophils % 79.9 H Sodium 139.3 Potassium 3.6 Chloride 101 Carbon Dioxide 30 Anion Gap 8 BUN 24 H Creatinine 0.96 Est GFR ( Amer) > 60 Glucose 138 H Calcium 8.2 L 10/27/19 17:25 Throat Throat Culture - Final Group A Beta Streptococcus Normal Viki 10/27/19 10/27/19 10/27/19 16:50 16:50 20:10 Creatine Kinase 1153 H CK-MB (CK-2) Troponin I 1.200 0.986 NT-Pro-B Natriuret Pep 497 H 10/28/19 10/28/19 10/28/19 05:55 05:55 15:00 Creatine Kinase 991 H 754 H CK-MB (CK-2) 2.67 Troponin I 0.542 NT-Pro-B Natriuret Pep 10/28/19 10/28/19 10/28/19 15:00 22:29 22:29 Creatine Kinase 605 H CK-MB (CK-2) 2.62 2.04 Troponin I 0.359 0.256 NT-Pro-B Natriuret Pep Impressions: Chest X-Ray 10/27/19 16:18 IMPRESSION: Left lateral basilar consolidation - pleural effusion. Venous Doppler Study 10/27/19 16:19 IMPRESSION: NO EVIDENCE DVT OR SVT IN THE LEFT LEG.Portions of distal superficial vein are not able to be identified due to body habitus. Assessment and Plan - Diagnosis (1) Left leg cellulitis Is this a current diagnosis for this admission?: Yes Plan: Complicated by venous stasis and tinea pedis Blood cultures are negative at 24 hours. Patient is admitted to the medical floor. He is empirically placed on IV Rocephin. Continue p.o. Lamisil. Compression Jameson wrap; elevate extremity. Consider surgical consultation. (2) Diabetes Qualifiers: Diabetes mellitus type: type 2 Is this a current diagnosis for this admission?: Yes Plan: A1c is 7.2%. Patient is placed on a cardiac/consistent carb diet. Accu-Cheks before meals and at bedtime with Humalog for sliding scale coverage. Hypoglycemia protocol in place. Registered dietitian and paper products machine operator are consulted. Plan to discharge patient on metformin. (3) Obstructive sleep apnea Is this a current diagnosis for this admission?: Yes Plan: Avoid cervical flexion, BiPAP while sleeping (4) Hypoxia Is this a current diagnosis for this admission?: Yes Plan: Improved; maintains oxygen saturations on room air. Does utilize BiPAP at home. Secondary to morbid obesity hypoventilation syndrome Continue BiPAP and supplemental oxygen as needed As needed nebulizer treatments. Received call from radiology regarding CTA done at [facility] for PE r/o. Motion artifact limited the distal views and PE can not be conclusively ruled out. However, patient is maintaining saturations on room air without chest discomfort, tachypnea, or tachycardia. Low suspicion for pulmonary embolus. - Time Time Spent with patient: 15-24 minutes Medications reviewed and adjusted accordingly: Yes Anticipated discharge: Home Within: within 48 hours
[2019-10-29] MEDS ORDERED: INSULIN LISPRO 100 UNIT/ML 3 ML VIAL SUBCUT SCH (16:00)
[2019-10-29] MEDS: KETOROLAC TROMETHAMINE INJ/PF 30 MG/1 ML SDV IV PRN (16:37)
[2019-10-30] MEDS: KETOROLAC TROMETHAMINE INJ/PF 30 MG/1 ML SDV IV PRN ×3 (00:01→17:59)
[2019-10-30] MEDS ORDERED: DIPHENHYDRAMINE HCL 25 MG CAPSULE ONE (00:18)
[2019-10-30] MEDS: DIPHENHYDRAMINE HCL 25 MG CAPSULE PO PRN ×2 (00:22→18:02)
[2019-10-30] MEDS: HEPARIN SOD (PORCINE) 5,000 UNIT/ML 1 ML VIAL SUBCUT SCH ×3 (01:10→18:36)
[2019-10-30 06:02] LABS: HEMATOCRIT 38.5 % (37.9-51.0); HEMOGLOBIN 12.6 g/dL (13.5-17.0); MEAN CORPUSCULAR HEMOGLOBIN 26.2 pg (27.0-33.4); MEAN CORPUSCULAR HGB CONC 32.7 g/dL (32.0-36.0); MEAN CORPUSCULAR VOLUME 80 fl (80-97); PLATELET COUNT 157 10^3/uL (150-450); RED BLOOD COUNT 4.79 10^6/uL (4.35-5.55); RED CELL DISTRIBUTION WIDTH 15.7 % (11.5-14.0); WHITE BLOOD COUNT 9.9 10^3/uL (4.0-10.5)
[2019-10-30] MEDS: CEFTRIAXONE 1 GM/D5W RTU 1 GM/50 ML RTUPB IV SCH (09:40)
[2019-10-30] MEDS: METOPROLOL TARTRATE 50 MG TABLET PO SCH ×2 (09:42→21:22)
[2019-10-30] MEDS: LOSARTAN POTASSIUM 50 MG TABLET PO SCH (09:42)
[2019-10-30] MEDS: DOCUSATE SODIUM 100 MG CAPSULE PO SCH ×2 (09:43→18:37)
[2019-10-30] MEDS: TERBINAFINE HCL 250 MG TABLET PO SCH (10:00)
--- NOTE | 2019-10-30 16:09 | PDOC PROGRESS REPORT ---
Subjective Progress Note for:: 10/30/19 Subjective:: The patent is a 44-year-old male with a past medical history of hypertension, bronchitis, morbid obesity, LIZABETH, diabetes, left lower extremity venous stasis, tenia PDA, debility who was 10/28/19 for left leg cellulitis. The patient was seen on morning rounds. He was found sitting up to the edge of the bed, comfortably, on room air eating his breakfast. He reports pain and itching to his left lower extremity but does believe the erythema and edema have improved slightly. He is interested in starting an antidepressant as he believes that underlying depression is a motivator in his binge eating. He also asks about recommendations for medical weight loss; ideally inpatient setting if any are available. He denies fever, chills, chest pain, palpitations, dyspnea, orthopnea, cough, abdominal pain, nausea vomiting and diarrhea. He has no other questions or concerns. No concerns per nursing. Reason For Visit: LEFT LEG CELLULITIS,MORBID OBESITY,ELEVATED TROP Physical Exam Vital Signs: Temp Pulse Resp BP Pulse Ox 98.3 F 72 18 139/84 H 90 L 10/30/19 12:00 10/30/19 12:00 10/30/19 12:00 10/30/19 12:00 10/30/19 12:00 Intake & Output 10/29/19 10/30/19 10/31/19 06:59 06:59 06:59 Intake Total 1836 2790 792 Output Total 975 2800 Balance 861 -10 792 Weight 199.4 kg 200.3 kg General appearance: PRESENT: no acute distress, cooperative, morbidly obese, well-developed, well-nourished Head exam: PRESENT: atraumatic, normocephalic Eye exam: PRESENT: conjunctiva pink, EOMI, PERRLA. ABSENT: scleral icterus Ear exam: PRESENT: normal external ear exam Mouth exam: PRESENT: moist, tongue midline Respiratory exam: PRESENT: clear to auscultation chalrette, decreased breath sounds - Bibasilar, symmetrical, unlabored. ABSENT: rales, rhonchi, wheezes Cardiovascular exam: PRESENT: RRR. ABSENT: diastolic murmur, rubs, systolic murmur Vascular exam: PRESENT: normal capillary refill GI/Abdominal exam: PRESENT: normal bowel sounds, soft. ABSENT: distended, guarding, mass, organolmegaly, rebound, tenderness Rectal exam: PRESENT: deferred Extremities exam: PRESENT: full ROM, +2 edema - LLE. ABSENT: calf tenderness, clubbing, pedal edema Neurological exam: PRESENT: alert, awake, oriented to person, oriented to place, oriented to time, oriented to situation, CN II-XII grossly intact. ABSENT: motor sensory deficit Psychiatric exam: PRESENT: appropriate affect, normal mood. ABSENT: homicidal ideation, suicidal ideation Skin exam: PRESENT: dry, erythema, warm, other - Circumferential erythema from foot to knee; serous weeping posteriorly. Fissured calluses of bilateral feet. ABSENT: cyanosis, rash Results Laboratory Results: 10/30/19 04:28 10/29/19 03:53 10/30/19 04:28 WBC 9.9 RBC 4.79 Hgb 12.6 L Hct 38.5 MCV 80 MCH 26.2 L MCHC 32.7 RDW 15.7 H Plt Count 157 10/27/19 10/27/19 10/27/19 16:50 16:50 20:10 Creatine Kinase 1153 H CK-MB (CK-2) Troponin I 1.200 0.986 NT-Pro-B Natriuret Pep 497 H 10/28/19 10/28/19 10/28/19 05:55 05:55 15:00 Creatine Kinase 991 H 754 H CK-MB (CK-2) 2.67 Troponin I 0.542 NT-Pro-B Natriuret Pep 10/28/19 10/28/19 10/28/19 15:00 22:29 22:29 Creatine Kinase 605 H CK-MB (CK-2) 2.62 2.04 Troponin I 0.359 0.256 NT-Pro-B Natriuret Pep Impressions: Chest X-Ray 10/27/19 16:18 IMPRESSION: Left lateral basilar consolidation - pleural effusion. Venous Doppler Study 10/27/19 16:19 IMPRESSION: NO EVIDENCE DVT OR SVT IN THE LEFT LEG.Portions of distal superficial vein are not able to be identified due to body habitus. Assessment and Plan - Diagnosis (1) Left leg cellulitis Is this a current diagnosis for this admission?: Yes Plan: Complicated by venous stasis and tinea pedis Blood cultures are negative at 48 hours. Patient is admitted to the medical floor. He is empirically placed on IV Rocephin. Continue p.o. Lamisil. Compression Ajmeson wrap; elevate extremity. Consider surgical consultation. (2) Diabetes Qualifiers: Diabetes mellitus type: type 2 Is this a current diagnosis for this admission?: Yes Plan: A1c is 7.2%.. Dietary compliance and lifestyle modification are encouraged. Patient is placed on a cardiac/consistent carb diet. Start metformin twice daily Accu-Cheks before meals and at bedtime with Humalog for sliding scale coverage. Hypoglycemia protocol in place. Registered dietitian and family educator are consulted. Plan to discharge patient on metformin. (3) Obstructive sleep apnea Is this a current diagnosis for this admission?: Yes Plan: Avoid cervical flexion, BiPAP while sleeping Outpatient follow-up for formalized sleep study (4) Hypoxia Is this a current diagnosis for this admission?: Yes Plan: Resolved; maintains oxygen saturations on room air. Does utilize BiPAP at home. Secondary to morbid obesity hypoventilation syndrome Continue BiPAP and supplemental oxygen as needed As needed nebulizer treatments. Received call from radiology regarding CTA done at [facility] for PE r/o. Motion artifact limited the distal views and PE can not be conclusively ruled out. However, patient is maintaining saturations on room air without chest discomfort, tachypnea, or tachycardia. Low suspicion for pulmonary embolus. (5) Depression Is this a current diagnosis for this admission?: Yes Plan: Long discussion had with patient. Recommend outpatient mental health follow-up. Start Prozac 20 mg daily. (6) Morbid obesity with BMI of 50.0-59.9, adult Is this a current diagnosis for this admission?: Yes Plan: BMI 58.3. Cardiac/consistent carb diet. Lifestyle modification dietary compliance are encouraged. Discharge planning is consulted. (7) Elevated troponin Is this a current diagnosis for this admission?: Yes Plan: Likely demand mismatch ischemia secondary to hypoxia. EKG demonstrated sinus tachycardia without acute ST changes. Patient is remained stable on telemetry. No episodes of chest discomfort. Troponin has trended down from 1.200-0.256. We will consult cardiology for consideration of inpatient versus appropriateness of outpatient stress testing. Daily aspirin and statin therapy. - Time Time Spent with patient: 25-34 minutes Medications reviewed and adjusted accordingly: Yes Anticipated discharge: Home Within: within 48 hours
[2019-10-30] MEDS: METFORMIN HCL 500 MG TABLET PO SCH (18:37)
--- NOTE | 2019-10-30 21:09 | PDOC CONSULTATION ---
Consultation Consult Date: 10/30/19 Provider Consulted: JACQUELIN SAWYER Consult reason:: Elevated troponin History of Present Illness Admission Date/PCP: 10/28/19 04:42 MICKI MOONEY PA-C Patient complains of: Left lower extremity pain and swelling History of Present Illness: JENNA GALLAGHER is a 44 year old male 1. Morbid obesity 2. Sleep apnea 3. Cellulitis left lower extremity Morbidly obese male was admitted with left lower extremity cellulitis. He is being presently managed with intravenous antibiotics and local wound toilet. He had elevated troponins without chest pain and his EKG did not show evidence of myocardial ischemia. Cardiology input is requested regarding elevated troponin. At the time of my evaluation patient is not complaining of chest pain or dyspnea. No prior coronary artery disease or cardiac problem is reported. Patient does not smoke cigarettes. He occasionally drinks alcohol. Does not admit to using any drugs there is family history of hypertension.. Past Medical History Cardiac Medical History: Reports: Hypertension Pulmonary Medical History: Reports: Bronchitis, Pneumonia - bilat, Sleep Apnea Endocrine Medical History: Reports: Diabetes Mellitus Type 1, Obesity Skin Medical History: Reports: Psoriasis Psychiatric Medical History: Reports: Depression Past Surgical History Past Surgical History: Reports: Orthopedic Surgery - R KNEE X 3, R THUMB X2, L WRIST Social History Smoking Status: Former Smoker Electronic Cigarette use?: No Frequency of Alcohol Use: Occasional Hx Recreational Drug Use: No Hx Prescription Drug Abuse: No - Advance Directive Resuscitation Status: Full Code Family History Family History: DM, Hypertension Parental Family History Reviewed: Yes - Hypertension Children Family History Reviewed: Unknown Sibling(s) Family History Reviewed.: NA Medication/Allergy Home Medications: No Home Medications 10/28/19 Allergies/Adverse Reactions: morphine [Morphine] Allergy (Verified 10/27/19 16:05) Hallucinations Review of Systems Eyes: PRESENT: as per HPI Cardiovascular: PRESENT: as per HPI Respiratory: PRESENT: dyspnea Hematologic/Lymphatic: PRESENT: as per HPI Physical Exam Vital Signs: Temp Pulse Resp BP Pulse Ox 98.0 F 72 18 149/69 H 92 10/30/19 16:00 10/30/19 16:00 10/30/19 16:00 10/30/19 16:00 10/30/19 16:00 Intake & Output 10/29/19 10/30/19 10/31/19 06:59 06:59 06:59 Intake Total 1836 2790 1032 Output Total 975 2800 Balance 861 -10 1032 Weight 199.4 kg 200.3 kg 200.3 kg General appearance: PRESENT: morbidly obese Head exam: PRESENT: atraumatic, normocephalic Eye exam: PRESENT: EOMI Mouth exam: PRESENT: moist Respiratory exam: PRESENT: clear to auscultation charlette, symmetrical - Very dif ficult auscultation. Heart sounds are barely audible Cardiovascular exam: PRESENT: +S1, +S2 Pulses: PRESENT: normal radial pulses GI/Abdominal exam: PRESENT: soft Neurological exam: PRESENT: alert, awake, oriented to person, oriented to place, oriented to time, oriented to situation Psychiatric exam: PRESENT: appropriate affect Skin exam: PRESENT: other - Skin of both lower extremities looked unhealthy. Left lower extremity is bandaged. There is seepage of serous fluid through the bandages. Callused skin is noted. Skin tears are noted. Results Laboratory Results: 10/30/19 04:28 10/29/19 03:53 10/30/19 04:28 WBC 9.9 RBC 4.79 Hgb 12.6 L Hct 38.5 MCV 80 MCH 26.2 L MCHC 32.7 RDW 15.7 H Plt Count 157 10/27/19 10/27/19 10/27/19 16:50 16:50 20:10 Creatine Kinase 1153 H CK-MB (CK-2) Troponin I 1.200 0.986 NT-Pro-B Natriuret Pep 497 H 10/28/19 10/28/19 10/28/19 05:55 05:55 15:00 Creatine Kinase 991 H 754 H CK-MB (CK-2) 2.67 Troponin I 0.542 NT-Pro-B Natriuret Pep 10/28/19 10/28/19 10/28/19 15:00 22:29 22:29 Creatine Kinase 605 H CK-MB (CK-2) 2.62 2.04 Troponin I 0.359 0.256 NT-Pro-B Natriuret Pep EKG Comments: Twelve-lead EKG 10/27/2019 Sinus tachycardia 104 bpm, premature atrial contractions, normal AV conduction, QTC 440 nearly 8 seconds. Twelve-lead EKG 01/20/2019 sinus rhythm 72 bpm QTC is 430 ms Impressions: Chest X-Ray 10/27/19 16:18 IMPRESSION: Left lateral basilar consolidation - pleural effusion. Venous Doppler Study 10/27/19 16:19 IMPRESSION: NO EVIDENCE DVT OR SVT IN THE LEFT LEG.Portions of distal superficial vein are not able to be identified due to body habitus. Assessment & Plan - Diagnosis (1) Elevated troponin Is this a current diagnosis for this admission?: Yes Plan: Troponin in the setting of left lower extremity cellulitis and probably systemic infection EKG without evidence of myocardial ischemia and patient not experiencing any chest pain or cardiac symptoms whatsoever. I suspect this is not acute coronary syndrome and just general reflection of the severity of her sepsis. Would recommend treatment of infection and sepsis. Would not proceed with re-stratification during ongoing infection. Continue to treat modifiable risk factors for coronary disease. (2) Left leg cellulitis Is this a current diagnosis for this admission?: Yes Plan: Left lower extremity infection and cellulitis being managed with intravenous antibiotics and local wound toilet.
[2019-10-30] MEDS: FLUOXETINE HCL 20 MG CAPSULE PO SCH (21:22)
[2019-10-30] MEDS: ATORVASTATIN CALCIUM 20 MG TABLET PO SCH (21:22)
[2019-10-31] MEDS: HEPARIN SOD (PORCINE) 5,000 UNIT/ML 1 ML VIAL SUBCUT SCH ×3 (06:35→17:14)
[2019-10-31] MEDS: METFORMIN HCL 500 MG TABLET PO SCH ×2 (07:43→17:14)
[2019-10-31] MEDS: ASPIRIN 81 MG TABLET, CHEWABLE PO SCH (09:15)
[2019-10-31] MEDS: DOCUSATE SODIUM 100 MG CAPSULE PO SCH ×2 (09:15→17:14)
[2019-10-31] MEDS: CEFTRIAXONE 1 GM/D5W RTU 1 GM/50 ML RTUPB IV SCH (09:15)
[2019-10-31] MEDS: METOPROLOL TARTRATE 50 MG TABLET PO SCH ×2 (09:15→21:45)
[2019-10-31] MEDS: LOSARTAN POTASSIUM 50 MG TABLET PO SCH (09:15)
[2019-10-31] MEDS: KETOROLAC TROMETHAMINE INJ/PF 30 MG/1 ML SDV IV PRN (09:16)
[2019-10-31] MEDS: HYDROMORPHONE HCL INJ/PF 2 MG/ML AMPULE IV PRN (09:20)
--- NOTE | 2019-10-31 11:52 | Operative Report ---
Operative Report DATE OF SURGERY: 10/31/19 PREOPERATIVE DIAGNOSIS: Early lightest with blister formation along the left fo ot dorsum POSTOPERATIVE DIAGNOSIS: Same OPERATION: Sharp debridement of blister and some necrotic tissue the subcutaneous area with the blister sites roughly measuring about 30 cm wide by about 16 cm long. SURGEON: SHIRA PRESSLEY TISSUE REMOVED OR ALTERED: Skin blister and some necrotic tissue underneath COMPLICATIONS: None ESTIMATED BLOOD LOSS: 1 cc QUANTITATIVE BLOOD LOSS: 1 INTRAOPERATIVE FINDINGS: Extensive blister formation along the dorsum of swollen right foot measuring 30 cm wide by 16 cm long. There is some necrotic tissue underneath the skin that was also debrided. PROCEDURE: Patient apparently stepped on piece of glass about 2 weeks ago and week later he developed redness and blister formation along the left foot. He is known to have lymphedema after left ankle fusion surgery 2 years ago. There is also redness along the left ankle going to just below the knee. The blister was surgically removed with the use of scissors and blade. There was some necrotic tissue underneath blister that was also partially removed with the use of scissors and manually scraping it with forceps. There is some dark reddish discoloration on the anterior aspect. A couple of pieces of Xeroform gauze was laid on top of the debrided areas and wrapped with 4 x 4 Jameson bandage and Kerlix. Patient will need Silvadene dressing on the wound about twice a day for the next few days. Patient will eventually need compression boot to help with the lymphedema. Continue with intravenous antibiotics. Patient tolerated procedure well.
[2019-10-31] MEDS: TERBINAFINE HCL 250 MG TABLET PO SCH (14:13)
--- NOTE | 2019-10-31 16:14 | PDOC PROGRESS REPORT ---
Subjective Progress Note for:: 10/31/19 Reason For Visit: LEFT LEG CELLULITIS,MORBID OBESITY,ELEVATED TROP 10/31/2019 Patient was admitted with significant left leg cellulitis and morbid obesity Physical Exam Vital Signs: Temp Pulse Resp BP Pulse Ox 98.9 F 68 20 150/87 H 94 10/31/19 12:00 10/31/19 15:00 10/31/19 12:00 10/31/19 12:00 10/31/19 12:00 Intake & Output 10/30/19 10/31/19 11/01/19 06:59 06:59 06:59 Intake Total 3234 1476 800 Output Total 2800 2 Balance 434 1476 798 Weight 200.3 kg 200.3 kg General appearance: PRESENT: mild distress, other - Due to his cellulitis in the left leg and his obesity Respiratory exam: PRESENT: clear to auscultation charlette. ABSENT: rales, rhonchi, wheezes Cardiovascular exam: PRESENT: RRR. ABSENT: diastolic murmur, rubs, systolic murmur Extremities exam: PRESENT: +2 edema, other - Please see the note dictated by general surgery, at least 2+ edema with redness up to almost the knee. Significant blister formation about the dorsum of the foot Neurological exam: PRESENT: alert, awake, oriented to person, oriented to place, oriented to time, oriented to situation, CN II-XII grossly intact. ABSENT: motor sensory deficit Psychiatric exam: PRESENT: appropriate affect, normal mood. ABSENT: homicidal ideation, suicidal ideation Results Laboratory Results: 10/30/19 04:28 10/29/19 03:53 10/27/19 10/27/19 10/27/19 16:50 16:50 20:10 Creatine Kinase 1153 H CK-MB (CK-2) Troponin I 1.200 0.986 NT-Pro-B Natriuret Pep 497 H 10/28/19 10/28/19 10/28/19 05:55 05:55 15:00 Creatine Kinase 991 H 754 H CK-MB (CK-2) 2.67 Troponin I 0.542 NT-Pro-B Natriuret Pep 10/28/19 10/28/19 10/28/19 15:00 22:29 22:29 Creatine Kinase 605 H CK-MB (CK-2) 2.62 2.04 Troponin I 0.359 0.256 NT-Pro-B Natriuret Pep Impressions: Chest X-Ray 10/27/19 16:18 IMPRESSION: Left lateral basilar consolidation - pleural effusion. Venous Doppler Study 10/27/19 16:19 IMPRESSION: NO EVIDENCE DVT OR SVT IN THE LEFT LEG.Portions of distal superficial vein are not able to be identified due to body habitus. Assessment and Plan - Diagnosis (1) Depression Is this a current diagnosis for this admission?: Yes (2) Diabetes Qualifiers: Diabetes mellitus type: type 2 Is this a current diagnosis for this admission?: Yes (3) Elevated troponin Is this a current diagnosis for this admission?: Yes (4) Left leg cellulitis Is this a current diagnosis for this admission?: Yes (5) Morbid obesity with BMI of 50.0-59.9, adult Is this a current diagnosis for this admission?: Yes (6) Obstructive sleep apnea Is this a current diagnosis for this admission?: Yes - Plan Summary Summary: 10/31/2019 Temperature 98 pulse 73 blood pressure 149/69, also 172/91, 95% sat RA Patient is currently on IV Rocephin and p.o. Lamisil Also taking Lopressor 50 mg every 12 hours and Cozaar 100 mg daily The patient recently started on metformin due to A1c being 7.2 Patient uses BiPAP at home Discussed case with general surgery there debriding his foot, they did a area 30 x 16 cm Would like patient to remain in the hospital for IV antibiotics for several more days - Time Time Spent with patient: 25-34 minutes
[2019-10-31] MEDS: SILVER SULFADIAZINE 1% CREAM 400 GM TP SCH (20:40)
[2019-10-31] MEDS: ATORVASTATIN CALCIUM 20 MG TABLET PO SCH (21:45)
[2019-10-31] MEDS: FLUOXETINE HCL 20 MG CAPSULE PO SCH (21:45)
[2019-11-01] MEDS: HYDRALAZINE HCL INJ/PF 20 MG/1 ML SDV IV PRN ×3 (01:59→21:43)
[2019-11-01] MEDS: HEPARIN SOD (PORCINE) 5,000 UNIT/ML 1 ML VIAL SUBCUT SCH ×3 (02:11→17:14)
[2019-11-01 04:25] LABS: HEMATOCRIT 38.9 % (37.9-51.0); HEMOGLOBIN 12.9 g/dL (13.5-17.0); MEAN CORPUSCULAR HEMOGLOBIN 26.5 pg (27.0-33.4); MEAN CORPUSCULAR HGB CONC 33.3 g/dL (32.0-36.0); MEAN CORPUSCULAR VOLUME 80 fl (80-97); PLATELET COUNT 194 10^3/uL (150-450); RED BLOOD COUNT 4.89 10^6/uL (4.35-5.55); RED CELL DISTRIBUTION WIDTH 15.4 % (11.5-14.0); WHITE BLOOD COUNT 10.5 10^3/uL (4.0-10.5)
[2019-11-01 04:44] LABS: ANION GAP 5 (5-19); BLOOD UREA NITROGEN 18 mg/dL (7-20); CALCIUM 8.8 mg/dL (8.4-10.2); CARBON DIOXIDE 35 mmol/L (22-30); CHLORIDE 103 mmol/L (98-107); GLUCOSE 130 mg/dL (75-110); POTASSIUM 4.6 mmol/L (3.6-5.0)
[2019-11-01 05:08] LABS: ABSOLUTE LYMPHOCYTES# (MANUAL) 1.6 10^3/uL (0.5-4.7); ABSOLUTE MONOCYTES # (MANUAL) 0.2 10^3/uL (0.1-1.4); BASOPHILS % (MANUAL) 0 % (0-2); EOSINOPHILS % (MANUAL) 1 % (0-6); LYMPHOCYTES % (MANUAL) 15 % (13-45); MONOCYTES % (MANUAL) 2 % (3-13); SEGMENTED NEUTROPHILS % (MAN) 81 % (42-78); TOTAL CELLS COUNTED 100
[2019-11-01 05:17] LABS: PROMYELOCYTES % (MANUAL) 1 % (0)
[2019-11-01 05:19] LABS: ANISOCYTOSIS SLIGHT; PLATELET COMMENT ADEQUATE
[2019-11-01 05:20] LABS: HYPOCHROMASIA SLIGHT
[2019-11-01] MEDS: METFORMIN HCL 500 MG TABLET PO SCH ×2 (08:03→17:14)
[2019-11-01 09:28] LABS: PATH REVIEW PATHOLOGIST REVIEWED
[2019-11-01] MEDS: DOCUSATE SODIUM 100 MG CAPSULE PO SCH ×2 (09:47→17:14)
[2019-11-01] MEDS: LOSARTAN POTASSIUM 50 MG TABLET PO SCH (09:47)
[2019-11-01] MEDS: ASPIRIN 81 MG TABLET, CHEWABLE PO SCH (09:47)
[2019-11-01] MEDS: METOPROLOL TARTRATE 50 MG TABLET PO SCH ×2 (09:47→21:44)
[2019-11-01] MEDS: CEFTRIAXONE 1 GM/D5W RTU 1 GM/50 ML RTUPB IV SCH (09:48)
[2019-11-01] MEDS: SILVER SULFADIAZINE 1% CREAM 400 GM TP SCH ×2 (09:48→17:14)
[2019-11-01] MEDS: TERBINAFINE HCL 250 MG TABLET PO SCH (11:48)
--- NOTE | 2019-11-01 13:41 | PDOC PROGRESS REPORT ---
Subjective Progress Note for:: 11/01/19 Reason For Visit: LEFT LEG CELLULITIS,MORBID OBESITY,ELEVATED TROP 11/01/2019 Left leg cellulitis, morbid obesity Physical Exam Vital Signs: Temp Pulse Resp BP Pulse Ox 98.6 F 79 20 150/87 H 93 11/01/19 12:00 11/01/19 12:00 11/01/19 12:00 11/01/19 12:00 11/01/19 12:00 Intake & Output 10/31/19 11/01/19 11/02/19 06:59 06:59 06:59 Intake Total 1476 2356 50 Output Total 3702 Balance 1476 -1346 50 Weight 200.3 kg 200.3 kg General appearance: PRESENT: mild distress Respiratory exam: PRESENT: clear to auscultation charlette. ABSENT: rales, rhonchi, wheezes Cardiovascular exam: PRESENT: RRR. ABSENT: diastolic murmur, rubs, systolic murmur Extremities exam: PRESENT: pedal edema - Patient has redness up to his knee, although there does appear to be daily progress, +2 edema Neurological exam: PRESENT: alert, awake, oriented to person, oriented to place, oriented to time, oriented to situation, CN II-XII grossly intact. ABSENT: motor sensory deficit Psychiatric exam: PRESENT: appropriate affect, depressed - Patient appears to be depressed over his and her mental health issues, normal mood. ABSENT: homicidal ideation, suicidal ideation Results Laboratory Results: 11/01/19 03:49 11/01/19 03:49 11/01/19 11/01/19 03:49 03:49 WBC 10.5 RBC 4.89 Hgb 12.9 L Hct 38.9 MCV 80 MCH 26.5 L MCHC 33.3 RDW 15.4 H Plt Count 194 Seg Neutrophils % Not Reportable Sodium 143.3 Potassium 4.6 Chloride 103 Carbon Dioxide 35 H Anion Gap 5 BUN 18 Creatinine 1.04 Est GFR ( Amer) > 60 Glucose 130 H Calcium 8.8 10/27/19 10/27/19 10/27/19 16:50 16:50 20:10 Creatine Kinase 1153 H CK-MB (CK-2) Troponin I 1.200 0.986 NT-Pro-B Natriuret Pep 497 H 10/28/19 10/28/19 10/28/19 05:55 05:55 15:00 Creatine Kinase 991 H 754 H CK-MB (CK-2) 2.67 Troponin I 0.542 NT-Pro-B Natriuret Pep 10/28/19 10/28/19 10/28/19 15:00 22:29 22:29 Creatine Kinase 605 H CK-MB (CK-2) 2.62 2.04 Troponin I 0.359 0.256 NT-Pro-B Natriuret Pep Impressions: Chest X-Ray 10/27/19 16:18 IMPRESSION: Left lateral basilar consolidation - pleural effusion. Venous Doppler Study 10/27/19 16:19 IMPRESSION: NO EVIDENCE DVT OR SVT IN THE LEFT LEG.Portions of distal superficial vein are not able to be identified due to body habitus. Assessment and Plan - Diagnosis (1) Depression Is this a current diagnosis for this admission?: Yes (2) Diabetes Qualifiers: Diabetes mellitus type: type 2 Is this a current diagnosis for this admission?: Yes (3) Elevated troponin Is this a current diagnosis for this admission?: Yes (4) Left leg cellulitis Is this a current diagnosis for this admission?: Yes (5) Morbid obesity with BMI of 50.0-59.9, adult Is this a current diagnosis for this admission?: Yes (6) Obstructive sleep apnea Is this a current diagnosis for this admission?: Yes - Plan Summary Summary: 10/31/2019 Temperature 98 pulse 73 blood pressure 149/69, also 172/91, 95% sat RA Patient is currently on IV Rocephin and p.o. Lamisil Also taking Lopressor 50 mg every 12 hours and Cozaar 100 mg daily The patient recently started on metformin due to A1c being 7.2 Patient uses BiPAP at home Discussed case with general surgery there debriding his foot, they did a area 30 x 16 cm Would like patient to remain in the hospital for IV antibiotics for several more days 11/01/2019 Within the last 30 minutes I was called by the nurse that the patient wanted to sign out AMA. I went up to talk to the patient and his was on speaker phone.. She stated that she did not think that the patient needed to be on IV antibiotics, stated that she did not think that the patient had diabetes needed medication for his hyperglycemia, stated that she thought that the patient could be discharged home. I have discussed this with the media planner / buyer and read her notes concerning the potential instability of his . She even tells me that she is severely bipolar and refuses to take her medications. He has been to her for 15 years and has been through these cycles before. He states that there is nothing that really can be done to fix the situation. I told him it was against my medical advice that he go home however if he chose to sign out AMA I would write him a prescription for some antibiotics as well as his metformin. I instructed him how to do wound care twice daily with the Loida vadene cream as outlined by the general surgeon. After I left the floor the media planner / buyer call me back and said that the patient had change his mind and he was not signing out AMA. CBC went from 18,000 to today 10.5, blood cultures negative x4 days. Currently on IV Rocephin as well as p.o. Lamisil with daily wound changes. - Time Time Spent with patient: 35 or more minutes
[2019-11-01] MEDS: FLUOXETINE HCL 20 MG CAPSULE PO SCH (21:43)
[2019-11-01] MEDS: ATORVASTATIN CALCIUM 20 MG TABLET PO SCH (21:43)
[2019-11-02] MEDS: HEPARIN SOD (PORCINE) 5,000 UNIT/ML 1 ML VIAL SUBCUT SCH ×3 (01:27→17:04)
[2019-11-02] MEDS: HYDRALAZINE HCL INJ/PF 20 MG/1 ML SDV IV PRN ×2 (04:21→17:04)
[2019-11-02] MEDS: DOCUSATE SODIUM 100 MG CAPSULE PO SCH ×2 (09:08→17:05)
[2019-11-02] MEDS: ASPIRIN 81 MG TABLET, CHEWABLE PO SCH (09:08)
[2019-11-02] MEDS: LOSARTAN POTASSIUM 50 MG TABLET PO SCH (09:08)
[2019-11-02] MEDS: METOPROLOL TARTRATE 50 MG TABLET PO SCH ×2 (09:08→21:25)
[2019-11-02] MEDS: METFORMIN HCL 500 MG TABLET PO SCH ×2 (09:08→15:52)
[2019-11-02] MEDS: CEFTRIAXONE 1 GM/D5W RTU 1 GM/50 ML RTUPB IV SCH (09:08)
[2019-11-02] MEDS: TERBINAFINE HCL 250 MG TABLET PO SCH (09:08)
[2019-11-02] MEDS: SILVER SULFADIAZINE 1% CREAM 400 GM TP SCH ×2 (09:09→17:05)
--- NOTE | 2019-11-02 09:56 | PDOC PROGRESS REPORT ---
Subjective Progress Note for:: 11/02/19 Reason For Visit: LEFT LEG CELLULITIS,MORBID OBESITY,ELEVATED TROP 11/02/2019 Left leg cellulitis, morbid obesity, diabetes, Physical Exam Vital Signs: Temp Pulse Resp BP Pulse Ox 97.2 F 65 20 167/82 H 96 11/02/19 05:11 11/02/19 05:11 11/02/19 05:11 11/02/19 05:11 11/02/19 05:11 Intake & Output 11/01/19 11/02/19 11/03/19 06:59 06:59 06:59 Intake Total 2356 1730 Output Total 3702 2050 Balance -1346 -320 Weight 200.3 kg General appearance: PRESENT: no acute distress, other - Patient sitting up in bed with no complaints Respiratory exam: PRESENT: clear to auscultation charlette. ABSENT: rales, rhonchi, wheezes Cardiovascular exam: PRESENT: RRR. ABSENT: diastolic murmur, rubs, systolic murmur Extremities exam: PRESENT: +2 edema, other - Less redness today as well as less edema to the left lower extremity Neurological exam: PRESENT: alert, awake, oriented to person, oriented to place, oriented to time, oriented to situation, CN II-XII grossly intact. ABSENT: motor sensory deficit Psychiatric exam: PRESENT: appropriate affect, normal mood, other - Patient apologizes for his 's behavior. States that he thinks she is in the emergency room being "IVC'ed". ABSENT: homicidal ideation, suicidal ideation Results Laboratory Results: 11/01/19 03:49 11/01/19 03:49 10/27/19 21:20 Blood Blood Culture - Final NO GROWTH IN 5 DAYS 10/27/19 19:12 Blood Blood Culture - Final NO GROWTH IN 5 DAYS 10/27/19 10/27/19 10/27/19 16:50 16:50 20:10 Creatine Kinase 1153 H CK-MB (CK-2) Troponin I 1.200 0.986 NT-Pro-B Natriuret Pep 497 H 10/28/19 10/28/19 10/28/19 05:55 05:55 15:00 Creatine Kinase 991 H 754 H CK-MB (CK-2) 2.67 Troponin I 0.542 NT-Pro-B Natriuret Pep 10/28/19 10/28/19 10/28/19 15:00 22:29 22:29 Creatine Kinase 605 H CK-MB (CK-2) 2.62 2.04 Troponin I 0.359 0.256 NT-Pro-B Natriuret Pep Impressions: Chest X-Ray 10/27/19 16:18 IMPRESSION: Left lateral basilar consolidation - pleural effusion. Venous Doppler Study 10/27/19 16:19 IMPRESSION: NO EVIDENCE DVT OR SVT IN THE LEFT LEG.Portions of distal superficial vein are not able to be identified due to body habitus. Assessment and Plan - Diagnosis (1) Depression Is this a current diagnosis for this admission?: Yes (2) Diabetes Qualifiers: Diabetes mellitus type: type 2 Is this a current diagnosis for this admission?: Yes (3) Elevated troponin Is this a current diagnosis for this admission?: Yes (4) Left leg cellulitis Is this a current diagnosis for this admission?: Yes (5) Morbid obesity with BMI of 50.0-59.9, adult Is this a current diagnosis for this admission?: Yes (6) Obstructive sleep apnea Is this a current diagnosis for this admission?: Yes - Plan Summary Summary: 10/31/2019 Temperature 98 pulse 73 blood pressure 149/69, also 172/91, 95% sat RA Patient is currently on IV Rocephin and p.o. Lamisil Also taking Lopressor 50 mg every 12 hours and Cozaar 100 mg daily The patient recently started on metformin due to A1c being 7.2 Patient uses BiPAP at home Discussed case with general surgery there debriding his foot, they did a area 30 x 16 cm Would like patient to remain in the hospital for IV antibiotics for several more days 11/01/2019 Within the last 30 minutes I was called by the nurse that the patient wanted to sign out AMA. I went up to talk to the patient and his was on speaker phone.. She stated that she did not think that the patient needed to be on IV antibiotics, stated that she did not think that the patient had diabetes needed medication for his hyperglycemia, stated that she thought that the patient could be discharged home. I have discussed this with the traffic and transport planner and read her notes concerning the potential instability of his . She even tells me that she is severely bipolar and refuses to take her medications. He has been to her for 15 years and has been through these cycles before. He states that there is nothing that really can be done to fix the situation. I told him it was against my medical advice that he go home however if he chose to sign out AMA I would write him a prescription for some antibiotics as well as his metformin. I instructed him how to do wound care twice daily with the Silvadene cream as outlined by the general surgeon. After I left the floor the traffic and transport planner call me back and said that the patient had change his mind and he was not signing out AMA. CBC went from 18,000 to today 10.5, blood cultures negative x4 days. Currently on IV Rocephin as well as p.o. Lamisil with daily wound changes. 11/02/2019 Temperature 97.2 patient has been afebrile now for many days pulse of 65, blood pressure 165/69, O2 sat between 94 and 96% on room air White blood cell count is stable at 10.5 Cultures are negative x5 days I would potentially like to discharge patient home tomorrow on p.o. antibiotics, with wound care to be followed up as an outpatient by general surgery and the wound care clinic I have explained this to the patient concerning his cellulitis - Time Time Spent with patient: 15-24 minutes
--- NOTE | 2019-11-02 11:45 | Operative Report ---
Operative Report DATE OF SURGERY: 11/02/19 PREOPERATIVE DIAGNOSIS: More necrotic skin and subcu after initial debridement 2 days ago. POSTOPERATIVE DIAGNOSIS: Same OPERATION: Sharp debridement of remaining blisters with necrotic tissue along the left foot totaling 10 x 10 cm SURGEON: SHIRA PRESSLEY TISSUE REMOVED OR ALTERED: Blisters with necrotic subcutaneous areas. COMPLICATIONS: None ESTIMATED BLOOD LOSS: 1 cc QUANTITATIVE BLOOD LOSS: 1 INTRAOPERATIVE FINDINGS: As further necrotic skin from the blister sites with necrotic tissue underneath. There is a total of at least 10 x 10 cm primarily along the periphery of the original large blister on the dorsum left foot PROCEDURE: Patient had a previous debridement 2 days ago and debrided sites appear to be improved with Silvadene dressing. However there is still some areas primarily on the periphery of the large blister that still not improve and now with obvious necrosis which appears to be ready to be debrided. This areas were then sharply debrided debrided with scissors and blade and the necrotic subcu immediately underneath the skin was also debrided sharply. Some the necrotic tissue was removed with a forceps. The area debrided roughly about 10 x 10 cm in total dimensions. To have further Silvadene dressings today and continue every 12 hours. Tolerated procedure well.
[2019-11-02] MEDS: ATORVASTATIN CALCIUM 20 MG TABLET PO SCH (21:25)
[2019-11-02] MEDS: FLUOXETINE HCL 20 MG CAPSULE PO SCH (21:25)
[2019-11-03] MEDS: HEPARIN SOD (PORCINE) 5,000 UNIT/ML 1 ML VIAL SUBCUT SCH ×2 (02:52→09:19)
[2019-11-03] MEDS: ASPIRIN 81 MG TABLET, CHEWABLE PO SCH (09:11)
[2019-11-03] MEDS: LOSARTAN POTASSIUM 50 MG TABLET PO SCH (09:11)
[2019-11-03] MEDS: METFORMIN HCL 500 MG TABLET PO SCH (09:11)
[2019-11-03] MEDS: METOPROLOL TARTRATE 50 MG TABLET PO SCH (09:12)
[2019-11-03] MEDS: TERBINAFINE HCL 250 MG TABLET PO SCH (09:12)
[2019-11-03] MEDS: CEFTRIAXONE 1 GM/D5W RTU 1 GM/50 ML RTUPB IV SCH (09:12)
[2019-11-03] MEDS: DOCUSATE SODIUM 100 MG CAPSULE PO SCH (09:12)
[2019-11-03] MEDS: SILVER SULFADIAZINE 1% CREAM 400 GM TP SCH (09:20)
--- NOTE | 2019-11-03 11:57 | PDOC PROGRESS REPORT ---
Subjective Progress Note for:: 11/03/19 Subjective:: Less pains on the left foot Reason For Visit: LEFT LEG CELLULITIS,MORBID OBESITY,ELEVATED TROP Physical Exam Vital Signs: Temp Pulse Resp BP Pulse Ox 98.8 F 69 18 160/87 H 95 11/03/19 11:46 11/03/19 11:46 11/03/19 11:46 11/03/19 11:46 11/03/19 11:46 Intake & Output 11/02/19 11/03/19 11/04/19 06:59 06:59 06:59 Intake Total 1730 1389 Output Total 2050 Balance -320 1389 Exam: Left foot wound appears to be getting a lot better. The inflammation appears to be subsiding together with the redness along the left calf with decreasing swelling Results Laboratory Results: 11/01/19 03:49 11/01/19 03:49 10/27/19 10/27/19 10/27/19 16:50 16:50 20:10 Creatine Kinase 1153 H CK-MB (CK-2) Troponin I 1.200 0.986 NT-Pro-B Natriuret Pep 497 H 10/28/19 10/28/19 10/28/19 05:55 05:55 15:00 Creatine Kinase 991 H 754 H CK-MB (CK-2) 2.67 Troponin I 0.542 NT-Pro-B Natriuret Pep 10/28/19 10/28/19 10/28/19 15:00 22:29 22:29 Creatine Kinase 605 H CK-MB (CK-2) 2.62 2.04 Troponin I 0.359 0.256 NT-Pro-B Natriuret Pep Impressions: Chest X-Ray 10/27/19 16:18 IMPRESSION: Left lateral basilar consolidation - pleural effusion. Venous Doppler Study 10/27/19 16:19 IMPRESSION: NO EVIDENCE DVT OR SVT IN THE LEFT LEG.Portions of distal super ficial vein are not able to be identified due to body habitus. Assessment & Plan - Diagnosis (1) Cellulitis of the left foot with blister Is this a current diagnosis for this admission?: Yes - Time Time Spent with patient: Less than 15 minutes - Plan Summary Plan Summary: Discussed with hospitalist. Patient may be discharged today but continue with Silvadene dressing at least once a day preferably twice a day. Patient can be followed up at the wound care center.
[2019-11-03 12:30] VITALS: BP 145/61
== END 2019-11-03 13:20 | disposition home health service (06) | DRG 570 ==
LOC: ER 15:28 → EH 10-28 04:42 → 5 10-28 13:03
PROVIDERS: ADMIT Internal Medicine; ATTEND Internal Medicine
PROC: 3E0234Z Introduction of Serum, Toxoid and Vaccine into Muscle, Percutaneous Approach (ICD-10-PCS; 2019-10-27)
PROC: 0JBR0ZZ Excision of Left Foot Subcutaneous Tissue and Fascia, Open Approach (ICD-10-PCS; principal; 2019-10-31)
PROC: 0HDNXZZ Extraction of Left Foot Skin, External Approach (ICD-10-PCS; 2019-11-02)
DX: L03.116 Cellulitis of left lower limb (principal); J18.9 Pneumonia, unspecified organism; E66.2 Morbid (severe) obesity with alveolar hypoventilation; Z68.43 Body mass index [BMI] 50.0-59.9, adult; S90.822A Blister (nonthermal), left foot, initial encounter; R09.02 Hypoxemia; I89.0 Lymphedema, not elsewhere classified; E11.8 Type 2 diabetes mellitus with unspecified complications; F32.9 Major depressive disorder, single episode, unspecified; W25.XXXA Contact with sharp glass, initial encounter; Y93.89 Activity, other specified; Y92.9 Unspecified place or not applicable; Z23 Encounter for immunization
CPT/HCPCS: 36415; 71045; 80048; 80053; 80061; 81001; 82550; 82553; 82803; 82962; 83036; 83605; 83735; 83880; 84443; 84484; 85025; 85027; 85610; 85730; 87040; 87070; 87077; 87804; 87880; 90471; 90715; 93005; 93010; 93971; 94660; 94799; 96361; 96365; 96375; 99285; J0360; J0696; J1170; J1644; J1885; J1956; J2405; J3370; J3490; J7030; J7040; J7620

== ENCOUNTER 2019-12-21 14:03 | Inpatient (IN) | payer OTHER ==
[2019-12-21] MEDS ORDERED: AZTREONAM INJ 1 GM VIAL IV ONE (14:31)
[2019-12-21] MEDS ORDERED: ACETAMINOPHEN 325 MG TABLET PO ONE (14:31)
[2019-12-21] MEDS ORDERED: VANCOMYCIN HCL INJ 1000 MG VIAL IV ONE (14:31)
--- NOTE | 2019-12-21 14:35 | ER Document Report ---
ED Medical Screen (RME) - General Chief Complaint: Foot Pain Stated Complaint: LEFT FOOT PAIN/FEVER Time Seen by Provider: 12/21/19 14:28 Primary Care Provider: MICKI MOONEY PA-C [Primary Care Provider] - Follow up as needed Notes: HPI: 44-year-old diabetic male presenting to the emergency department for fever and worsening left foot swelling and redness. Patient with history of chronic lymphedema, neuropathy, left foot infection states he does have "hardware" in the left ankle. Patient states that he was at the wound clinic 2 days ago and they stuck a Q-tip into the dorsal and medial aspect of the left foot and a large amount of pus came out. Patient began having fever and chills yesterday. Patient now with worsening swelling of the leg and foot as well as fevers today. I have greeted and performed a rapid initial assessment of this patient. A comprehensive ED assessment and evaluation of the patient, analysis of test results and completion of the medical decision making process will be conducted by additional ED providers PHYSICAL EXAMINATION: GENERAL: Well-appearing, well-nourished and in moderate acute distress. HEAD: Atraumatic, normocephalic. EYES: sclera anicteric, conjunctiva are normal. ENT: Moist mucous membranes. NECK: Normal range of motion LUNGS: Normal work of breathing HEART: 2+ radial pulses bilaterally, tachycardic ABD: limited by positioning for exam in triage. EXTREMITIES: Lymphedema to bilateral lower extremities. There is significant erythema and soft tissue swelling with induration to the left foot and ankle. There is a wound area with packing in the medial aspect of the dorsal left foot. There is increased warmth and erythema extending up the left anterior lower leg to the level of the knee. NEUROLOGICAL: No focal neurological deficits. Moves all extremities spontaneously and on command. PSYCH: Normal mood, normal affect. SKIN: Warm, Dry, normal turgor, erythema left lower extremity TRAVEL OUTSIDE OF THE [place] IN LAST 30 DAYS: No - Related Data Allergies/Adverse Reactions: morphine [Morphine] Allergy (Verified 10/27/19 16:05) Hallucinations Past Medical History - Past Medical History Cardiac Medical History: Reports: Hx Hypertension Pulmonary Medical History: Reports: Hx Bronchitis, Hx Pneumonia - bilat, Hx Sleep Apnea Endocrine Medical History: Reports: Hx Diabetes Mellitus Type 1 Renal/ Medical History: Reports: Hx Kidney Stones. Denies: Hx Peritoneal Dialysis Skin Medical History: Reports Hx Psoriasis Psychiatric Medical History: Reports: Hx Depression Past Surgical History: Reports: Hx Orthopedic Surgery - R KNEE X 3, R THUMB X2, L WRIST Physical Exam - Vital signs Vitals: Temp Pulse Resp BP Pulse Ox 102.9 F H 135 H 28 H 158/92 H 93 12/21/19 14:13 12/21/19 14:13 12/21/19 14:13 12/21/19 14:13 12/21/19 14:13 Course - Vital Signs Vital signs: Temp Pulse Resp BP Pulse Ox 102.9 F H 135 H 28 H 158/92 H 93 12/21/19 14:13 12/21/19 14:13 12/21/19 14:13 12/21/19 14:13 12/21/19 14:13 Doctor's Discharge - Discharge Referrals: MICKI MOONEY PA-C [Primary Care Provider] - Follow up as needed
[2019-12-21] MEDS: RINGERS SOLUTION,LACTATED 1,000 ML IV PRN ×2 (14:51→15:57)
[2019-12-21 15:21] LABS: INTERNATIONAL RATION (INR) 1.45; PROTHROMBIN TIME 17.8 SEC (11.4-15.4)
--- NOTE | 2019-12-21 15:48 | RADIOLOGY REPORT (SQ) ---
EXAM DESCRIPTION: FOOT LEFT 2 VIEWS COMPLETED DATE/TIME: 12/21/2019 3:33 pm REASON FOR STUDY: eval for gas/osteo COMPARISON: AP and lateral views of the left foot from 05/28/2018. NUMBER OF VIEWS: Two views. TECHNIQUE: AP and lateral radiographic images acquired of the left foot. LIMITATIONS: None. FINDINGS: MINERALIZATION: Osteopenia. BONES: Cannulated screw that extends through the calcaneus into the talus and screws and plate in the anterior talus ; the hardware is intact. There is no fracture. JOINTS: The normal tarsometatarsal alignment is preserved. There is no periarticular erosion. SOFT TISSUES: Diffuse soft tissue swelling. The soft tissue radiodensities that project at the level of the midfoot could represent gauze material that is on the skin. There is no subcutaneous emphyse ma. OTHER: No other finding. IMPRESSION: Diffuse soft tissue swelling. The soft tissue radiodensities that project at the level of the midfoot could represent gauze material that is on the skin. TECHNICAL DOCUMENTATION: JOB ID: [id number] 2010 [employer]- All Rights Reserved Reading location - IP/workstation name: [email or web address]
[2019-12-21 15:51] LABS: ALKALINE PHOSPHATASE 82 U/L (38-126); ANION GAP 12 (5-19); ASPARTATE AMINO TRANSFERASE 23 U/L (17-59); BILIRUBIN,DIRECT 0.4 mg/dL (0.0-0.4); BILIRUBIN,TOTAL 0.9 mg/dL (0.2-1.3); BLOOD UREA NITROGEN 18 mg/dL (7-20); CALCIUM 8.6 mg/dL (8.4-10.2); CARBON DIOXIDE 28 mmol/L (22-30); CHLORIDE 96 mmol/L (98-107); GLUCOSE 174 mg/dL (75-110); POTASSIUM 3.3 mmol/L (3.6-5.0); TOTAL PROTEIN 7.6 g/dL (6.3-8.2)
[2019-12-21 16:06] LABS: HEMATOCRIT 40.7 % (37.9-51.0); HEMOGLOBIN 13.4 g/dL (13.5-17.0); MEAN CORPUSCULAR HEMOGLOBIN 26.6 pg (27.0-33.4); MEAN CORPUSCULAR VOLUME 81 fl (80-97); PLATELET COUNT 174 10^3/uL (150-450); RED BLOOD COUNT 5.05 10^6/uL (4.35-5.55); RED CELL DISTRIBUTION WIDTH 16.8 % (11.5-14.0); WHITE BLOOD COUNT 18.2 10^3/uL (4.0-10.5)
[2019-12-21 16:26] LABS: VENOUS BLOOD BASE EXCESS 2.4 mmol/L; VENOUS BLOOD HCO3 25.6 mmol/L (20-32); VENOUS BLOOD PCO2 35.3 mmHg (35-63); VENOUS BLOOD PH 7.48 (7.30-7.42)
[2019-12-21 16:28] LABS: ABSOLUTE LYMPHOCYTES# (MANUAL) 0.7 10^3/uL (0.5-4.7); ABSOLUTE MONOCYTES # (MANUAL) 0.9 10^3/uL (0.1-1.4); ANISOCYTOSIS 1+; BAND NEUTROPHILS % (MANUAL) 2 % (3-5); BASOPHILS % (MANUAL) 0 % (0-2); EOSINOPHILS % (MANUAL) 0 % (0-6); LYMPHOCYTES % (MANUAL) 4 % (13-45); MONOCYTES % (MANUAL) 5 % (3-13); POIKILOCYTOSIS SLIGHT; SEGMENTED NEUTROPHILS % (MAN) 89 % (42-78); TOTAL CELLS COUNTED 100
[2019-12-21 16:29] LABS: PLATELET COMMENT ADEQUATE
[2019-12-21] MEDS ORDERED: METRONIDAZOLE 500 MG/NS RTU 500 MG/100 ML RTUPB IV ONE (17:00)
[2019-12-21] MEDS ORDERED: HYDROMORPHONE HCL INJ/PF 2 MG/ML AMPULE IV ONE (17:15)
--- NOTE | 2019-12-21 17:18 | ER Document Report ---
ED General - General Chief Complaint: Wound Infection Stated Complaint: LEFT FOOT PAIN/FEVER Time Seen by Provider: 12/21/19 14:28 Primary Care Provider: MICKI MOONEY PA-C [Primary Care Provider] - Follow up as needed TRAVEL OUTSIDE OF THE [place] IN LAST 30 DAYS: No - HPI Notes: Patient is a 44-year-old male with a history of diabetes, lymphedema, who presents to the emergency department for evaluation. On Wednesday he was at wound care, states that they uncovered a large amount of purulent drainage on examination. That night he began having fevers. One episode of emesis that night as well. Since then he has been febrile. He has had some nausea. He is feeling overall weak. He states his blood sugars have been mildly elevated. His pain is currently a 2 out of 5, but is worsened with any sort of manipulation of the wound area. He has been taking his medications as prescribed. When he was seen on Wednesday, they started him on Bactrim and Augmentin. He had been taking that without any improvement. - Related Data Allergies/Adverse Reactions: morphine [Morphine] Allergy (Verified 10/27/19 16:05) Hallucinations Home Medications: Bactrim, Augmentin, atorvastatin, Prozac, Metformin, Metoprolo l Past Medical History - General Information source: Patient - Social History Smoking Status: Former Smoker Family History: DM, Hypertension Patient has suicidal ideation: No Patient has homicidal ideation: No - Past Medical History Cardiac Medical History: Reports: Hx Hypertension Pulmonary Medical History: Reports: Hx Bronchitis, Hx Pneumonia - bilat, Hx Sleep Apnea Endocrine Medical History: Reports: Hx Diabetes Mellitus Type 1 Renal/ Medical History: Reports: Hx Kidney Stones. Denies: Hx Peritoneal Dialysis Musculoskeletal Medical History: Reports Other - Lymphedema Skin Medical History: Reports Hx Psoriasis Psychiatric Medical History: Reports: Hx Depression Past Surgical History: Reports: Hx Orthopedic Surgery - R KNEE X 3, R THUMB X2, L WRIST Review of Systems - Review of Systems Constitutional: See HPI Gastrointestinal: See HPI Musculoskeletal: See HPI Skin: See HPI -: Yes All other systems reviewed and negative Physical Exam - Vital signs Vitals: Temp Pulse Resp BP Pulse Ox 102.9 F H 135 H 28 H 158/92 H 93 12/21/19 14:13 12/21/19 14:13 12/21/19 14:13 12/21/19 14:13 12/21/19 14:13 - Notes Notes: This is a morbidly obese male who appears his stated age in a mild to moderate distress. He is mildly diaphoretic, likely from his fever coming down. He seems uncomfortable. Vital signs reviewed, please refer to chart. Head is normocephalic, atraumatic. Pupils equal round, reactive to light. Neck is supple without meningismus. Heart is regular rate and rhythm. Lungs are clear to auscultation bilaterally. Abdomen is soft, nontender, normoactive bowel sounds throughout. He has a soft umbilical hernia noted. Extremities show chronic lymphedema and skin changes. Focused on the left foot yields a significant amount of edema. There is packing coming from a circular 4 mm wound on the medial dorsal aspect of the left foot. This packing is removed. There is some small purulent material noted on the packing, but no further purulence elicited with probing and saline. Course - Re-evaluation Re-evalutation: 12/21/19 17:18 Patient presents the emergency department for evaluation. He is febrile, tachyc ardic. His white blood cell count is markedly elevated. He has a clear cellulitis of the foot. X-ray of the foot failed to reveal any significant signs of osteomyelitis. He was treated through triage with aztreonam and vancomycin. Decision was made to add further anaerobic coverage with the add ition of Flagyl. We will repack the wound after pain medication is administered. Will contact medicine for admission. 12/21/19 18:28 I probed the wound thoroughly, no further septations were noted. The wound was irrigated then repacked. The patient tolerated this well. I spoke with Dr. Schaffer of medicine who will admit the patient. He asked for a surgical consult. I consulted Dr. Zepeda, who will evaluate the patient in consultation. - Vital Signs Vital signs: Temp Pulse Resp BP Pulse Ox 100.5 F H 135 H 18 132/64 H 96 12/21/19 16:33 12/21/19 14:13 12/21/19 16:15 12/21/19 16:15 12/21/19 16:15 - Laboratory Result Diagrams: 12/21/19 14:56 12/21/19 14:56 Laboratory results interpreted by me: 12/21/19 12/21/19 12/21/19 14:56 14:56 14:56 WBC 18.2 H Hgb 13.4 L MCH 26.6 L RDW 16.8 H Seg Neuts % (Manual) 89 H Band Neutrophils % 2 L Lymphocytes % (Manual) 4 L Abs Neuts (Manual) 16.6 H PT 17.8 H VBG pH Sodium 136.1 L Potassium 3.3 L Chloride 96 L Glucose 174 H 12/21/19 15:41 WBC Hgb MCH RDW Seg Neuts % (Manual) Band Neutrophils % Lymphocytes % (Manual) Abs Neuts (Manual) PT VBG pH 7.48 H Sodium Potassium Chloride Glucose - Diagnostic Test Radiology reviewed: Reports reviewed Radiology results interpreted by me: 12/21/19 17:18 Foot X-Ray 12/21/19 14:33 IMPRESSION: Diffuse soft tissue swelling. The soft tissue radiodensities that project at the level of the midfoot could represent gauze material that is on the skin. - EKG Interpretation by Me Additional EKG results interpreted by me: 12/21/19 17:19 Sinus tachycardia with a rate of 120 bpm. PAC noted. Left axis deviation. No acute ST changes concerning for ischemia or infarction. Discharge - Discharge Clinical Impression: Left leg cellulitis, Morbid obesity with BMI of 50.0-59.9, adult, Diabetes Condition: Stable Disposition: ADMITTED INPATIENT Admitting Provider: Sarbjit (Hospitalist) Unit Admitted: Medical Floor Referrals: MICKI MOONEY PA-C [Primary Care Provider] - Follow up as needed
[2019-12-21] MEDS ORDERED: ONDANSETRON HCL INJ/PF 4 MG/2 ML SDV IV ONE (17:37)
--- NOTE | 2019-12-21 19:07 | PDOC CONSULTATION ---
Consultation Consult Date: 12/21/19 Provider Consulted: SHIRA PRESSLEY Consult reason:: Abscess left foot post I&D. Cellulitis left lower leg History of Present Illness Admission Date/PCP: 12/21/19 18:49 MICKI MOONEY PA-C History of Present Illness: JENNA GALLAGHER is a 44 year old male type II diabetic on metformin, was seen at the wound care center Wednesday for an abscess on the dorsum of the left foot was drained. After drainage patient started to have fever. Because of this came to the ED. Abscess packing was changed in the ED and no other obvious area of abscess site noted. He had an x-ray of the left foot which showed no evidence of abscess formation or osteomyelitis. He claims he has left ankle fusion due to injury sustained while playing multiple sports. He is also known to have lymphedema of the left lower leg. Past Medical History Cardiac Medical History: Reports: Hypertension Pulmonary Medical History: Reports: Bronchitis, Pneumonia - bilat, Sleep Apnea Endocrine Medical History: Reports: Diabetes Mellitus Type 1 Musculoskeltal Medical History: Reports: Other - Lymphedema Skin Medical History: Reports: Psoriasis Psychiatric Medical History: Reports: Depression Past Surgical History Past Surgical History: Reports: Orthopedic Surgery - R KNEE X 3, R THUMB X2, L WRIST Social History Smoking Status: Former Smoker Frequency of Alcohol Use: Occasional Hx Recreational Drug Use: No Hx Prescription Drug Abuse: No Family History Family History: DM, Hypertension Parental Family History Reviewed: Yes Children Family History Reviewed: No Sibling(s) Family History Reviewed.: No Medication/Allergy Home Medications: Acetaminophen [Tylenol 325 mg Tablet] 650 mg PO Q4HP PRN tablet 11/03/19 Aspirin [Aspirin 81 mg Chewable Tablet] 81 mg PO DAILY tab.chew 11/03/19 Atorvastatin Calcium [Lipitor 20 mg Tablet] 20 mg PO QHS 30 Days #30 tablet 11/03/19 Cephalexin Monohydrate [Keflex 500 mg Capsule] 500 mg PO QID #20 capsule 11/03/19 Fluoxetine HCl [Prozac 20 mg Capsule] 20 mg PO QHS 30 Days #30 capsule 11/03/19 Losartan Potassium [Cozaar 50 mg Tablet] 100 mg PO DAILY 30 Days #60 tablet 11/03/19 Metformin HCl [Glucophage 500 mg Tablet] 500 mg PO BIDACBS 30 Days #60 tablet 11/03/19 Metoprolol Tartrate [Lopressor 50 mg Tablet] 50 mg PO Q12 30 Days #60 tablet 11/03/19 Silver Sulfadiazine [Silvadene 1% Cream 400 gm] 1 applic TP BID #14 jar 11/03/19 Terbinafine HCl [Lamisil 250 mg Tablet] 250 mg PO DAILY 7 Days #7 tablet 11/03/19 Allergies/Adverse Reactions: morphine [Morphine] Allergy (Verified 10/27/19 16:05) Hallucinations Review of Systems Constitutional: PRESENT: as per HPI Cardiovascular: PRESENT: other - No chest pain start cough Gastrointestinal: PRESENT: other Physical Exam Vital Signs: Temp Pulse Resp BP Pulse Ox 100.5 F H 135 H 18 132/64 H 96 12/21/19 16:33 12/21/19 14:13 12/21/19 16:15 12/21/19 16:15 12/21/19 16:15 Intake & Output 12/20/19 12/21/19 12/22/19 06:59 06:59 06:59 Intake Total 1999 Balance 1999 Weight 214.4 kg General appearance: PRESENT: mild distress, morbidly obese Head exam: PRESENT: atraumatic Eye exam: PRESENT: conjunctival injection Mouth exam: PRESENT: moist Neck exam: PRESENT: full ROM GI/Abdominal exam: PRESENT: soft Rectal exam: PRESENT: deferred Extremities exam: PRESENT: other - Left lower leg with minimal edema from the knee down to the foot now with erythema. Dorsum of the left foot has an I&D with a drain that was replaced in the ED. Psychiatric exam: PRESENT: appropriate affect Skin exam: PRESENT: erythema Results Laboratory Results: 12/21/19 14:56 12/21/19 14:56 12/21/19 12/21/19 12/21/19 14:56 14:56 14:56 WBC 18.2 H RBC 5.05 Hgb 13.4 L Hct 40.7 MCV 81 MCH 26.6 L MCHC 33.0 RDW 16.8 H Plt Count 174 Seg Neutrophils % Not Reportable VBG pH VBG pCO2 VBG HCO3 VBG Base Excess Sodium 136.1 L Potassium 3.3 L Chloride 96 L Carbon Dioxide 28 Anion Gap 12 BUN 18 Creatinine 1.12 Est GFR ( Amer) > 60 Glucose 174 H Lactic Acid 1.8 Calcium 8.6 Total Bilirubin 0.9 AST 23 Alkaline Phosphatase 82 Total Protein 7.6 Albumin 4.0 12/21/19 12/21/19 15:41 17:50 WBC RBC Hgb Hct MCV MCH MCHC RDW Plt Count Seg Neutrophils % VBG pH 7.48 H VBG pCO2 35.3 VBG HCO3 25.6 VBG Base Excess 2.4 Sodium Potassium Chloride Carbon Dioxide Anion Gap BUN Creatinine Est GFR ( Amer) Glucose Lactic Acid 1.5 Calcium Total Bilirubin AST Alkaline Phosphatase Total Protein Albumin Impressions: Foot X-Ray 12/21/19 14:33 IMPRESSION: Diffuse soft tissue swelling. The soft tissue radiodensities that project at the level of the midfoot could represent gauze material that is on the skin. Assessment & Plan - Diagnosis (1) Diabetes Qualifiers: Diabetes mellitus type: type 2 Is this a current diagnosis for this admission?: Yes (2) Left leg cellulitis Is this a current diagnosis for this admission?: Yes (3) Morbid obesity with BMI of 50.0-59.9, adult Is this a current diagnosis for this admission?: Yes (4) Obstructive sleep apnea Is this a current diagnosis for this admission?: Yes - Time Time Spent: 30 to 50 Minutes - Inpatient Certification Based on my medical assessment, after consideration of the patient's comorbidities, presenting symptoms, or acuity I expect that the services needed warrant INPATIENT care.: Yes I certify that my determination is in accordance with my understanding of Medicare's requirements for reasonable and necessary INPATIENT services [42 CFR 412.3e].: Yes Medical Necessity: Need for IV Antibiotics, Risk of Complication if Not Cared For in Hospital - Plan Summary Plan Summary: 44-year-old male with type 2 diabetes mellitus, lymphedema of the left lower leg and an abscess on the dorsum left foot that was drained at the wound care center 2 days ago. Developed a fever after I&D and subsequently went to ED. He had a x-ray of the left foot which showed no evidence of osteomyelitis or abscess. Packing on the dorsum of the left foot was changed in the ED today. No further evidence of collection noted on squeezing around the area of the drain site. However this mild to moderate pains along the left foot. Impression is abscess of the left foot with cellulitis of the left lower leg in a patient with type 2 diabetes. Plans: Continue IV antibiotics Try to elevate left leg on the level of the heart or higher. We will follow the patient with you. Will need the change of packing in a.m..
[2019-12-21] MEDS ORDERED: KETOROLAC TROMETHAMINE INJ/PF 30 MG/1 ML SDV IV ONE (19:14)
[2019-12-21] MEDS ORDERED: ZOLPIDEM TARTRATE 5 MG TABLET PO PRN (19:26)
[2019-12-21] MEDS ORDERED: ACETAMINOPHEN 325 MG TABLET PO PRN (19:26)
[2019-12-21] MEDS ORDERED: MAG HYDROX/AL HYDROX/SIMETH SUSP 30 ML UDCUP PO PRN (19:26)
[2019-12-21] MEDS ORDERED: POTASSIUM CHLORIDE 10 MEQ TABLET.ER PO ONE (19:31)
[2019-12-21] MEDS ORDERED: KETOROLAC TROMETHAMINE INJ/PF 30 MG/1 ML SDV IV PRN (19:32)
[2019-12-21] MEDS ORDERED: NORMAL SALINE 1000 ML 1,000 ML IV ONE (19:35)
[2019-12-21] MEDS ORDERED: DEXTROSE 40% GEL 15 GM TUBE PO PRN ×2 (19:36)
[2019-12-21] MEDS ORDERED: GLUCAGON,HUMAN RECOMB 1 MG INJ IM PRN (19:36)
[2019-12-21] MEDS ORDERED: DEXTROSE 50%-WATER 25 GM/50 ML DISP.SYRIN IV PRN ×2 (19:36)
--- NOTE | 2019-12-21 19:44 | PDOC H&P ---
History of Present Illness Admission Date/PCP: 12/21/19 18:49 MICKI MOONEY PA-C Patient complains of: Fever, swelling on drainage in foot ulcer History of Present Illness: JENNA GALLAGHER is a 44 year old male with a history of type 2 diabetes mellitus, hypertension, chronic diabetic foot ulcer, who presents to the hospital with complaints of fever. Of note patient was recently admitted in the hospital for cellulitis and pneumonia. Completed antibiotic course with improvement of symptoms. Patient has been going to the wound clinic for continued management of his foot wound. He was noted to have an abscess in his left foot at the wound clinic yesterday which was incised and drained and packing was placed. He was given antibiotics Bactrim to take at home which he picked up today. However patient decided to come to the hospital today because he was having fevers. Patient notably has some swelling and redness along the lines of his left lower extremity up to his knee. Past Medical History Cardiac Medical History: Reports: Hypertension Pulmonary Medical History: Reports: Bronchitis, Pneumonia - bilat, Sleep Apnea Endocrine Medical History: Reports: Diabetes Mellitus Type 2 Musculoskeltal Medical History: Reports: Other - Lymphedema Skin Medical History: Reports: Psoriasis Psychiatric Medical History: Reports: Depression Past Surgical History Past Surgical History: Reports: Orthopedic Surgery - R KNEE X 3, R THUMB X2, L WRIST Social History Smoking Status: Former Smoker Frequency of Alcohol Use: Occasional Hx Recreational Drug Use: No Hx Prescription Drug Abuse: No - Advance Directive Resuscitation Status: Full Code Family History Family History: DM, Hypertension Parental Family History Reviewed: Yes Children Family History Reviewed: NA Sibling(s) Family History Reviewed.: NA Medication/Allergy Home Medications: Acetaminophen [Tylenol 325 mg Tablet] 650 mg PO Q4HP PRN tablet 11/03/19 Aspirin [Aspirin 81 mg Chewable Tablet] 81 mg PO DAILY tab.chew 11/03/19 Atorvastatin Calcium [Lipitor 20 mg Tablet] 20 mg PO QHS 30 Days #30 tablet 11/03/19 Cephalexin Monohydrate [Keflex 500 mg Capsule] 500 mg PO QID #20 capsule 11/03/19 Fluoxetine HCl [Prozac 20 mg Capsule] 20 mg PO QHS 30 Days #30 capsule 11/03/19 Losartan Potassium [Cozaar 50 mg Tablet] 100 mg PO DAILY 30 Days #60 tablet 11/03/19 Metformin HCl [Glucophage 500 mg Tablet] 500 mg PO BIDACBS 30 Days #60 tablet 11/03/19 Metoprolol Tartrate [Lopressor 50 mg Tablet] 50 mg PO Q12 30 Days #60 tablet 11/03/19 Silver Sulfadiazine [Silvadene 1% Cream 400 gm] 1 applic TP BID #14 jar 11/03/19 Terbinafine HCl [Lamisil 250 mg Tablet] 250 mg PO DAILY 7 Days #7 tablet 11/03/19 Allergies/Adverse Reactions: morphine [Morphine] Allergy (Verified 10/27/19 16:05) Hallucinations Review of Systems Constitutional: PRESENT: fever(s) Eyes: ABSENT: visual disturbances Nose, Mouth, and Throat: ABSENT: headache(s) Cardiovascular: ABSENT: chest pain Respiratory: ABSENT: dyspnea Gastrointestinal: ABSENT: abdominal pain Genitourinary: ABSENT: dysuria Musculoskeletal: ABSENT: back pain Integumentary: PRESENT: wounds Neurological: ABSENT: confusion Physical Exam Vital Signs: Temp Pulse Resp BP Pulse Ox 102.9 F H 135 H 41 H 144/76 H 89 L 12/21/19 19:01 12/21/19 14:13 12/21/19 19:01 12/21/19 19:01 12/21/19 19:01 Intake & Output 12/20/19 12/21/19 12/22/19 06:59 06:59 06:59 Intake Total 2100 Balance 2100 Weight 214.4 kg General appearance: PRESENT: no acute distress, morbidly obese Head exam: PRESENT: normocephalic Eye exam: PRESENT: EOMI Mouth exam: PRESENT: neck supple Neck exam: ABSENT: JVD Respiratory exam: PRESENT: clear to auscultation charlette, unlabored. ABSENT: tachypnea, wheezes Cardiovascular exam: PRESENT: +S1, +S2 GI/Abdominal exam: PRESENT: soft. ABSENT: rebound, rigid, tenderness Extremities exam: PRESENT: pedal edema, other - Erythema in left lower extremity ultimately up to the left knee with covered abscess in the left foot Neurological exam: PRESENT: alert, awake Psychiatric exam: ABSENT: agitated, anxious Focused psych exam: ABSENT: pressured speech Skin exam: ABSENT: jaundice Results Laboratory Results: 12/21/19 14:56 12/21/19 14:56 12/21/19 12/21/19 12/21/19 14:56 14:56 14:56 WBC 18.2 H RBC 5.05 Hgb 13.4 L Hct 40.7 MCV 81 MCH 26.6 L MCHC 33.0 RDW 16.8 H Plt Count 174 Seg Neutrophils % Not Reportable VBG pH VBG pCO2 VBG HCO3 VBG Base Excess Sodium 136.1 L Potassium 3.3 L Chloride 96 L Carbon Dioxide 28 Anion Gap 12 BUN 18 Creatinine 1.12 Est GFR ( Amer) > 60 Glucose 174 H Lactic Acid 1.8 Calcium 8.6 Total Bilirubin 0.9 AST 23 Alkaline Phosphatase 82 Total Protein 7.6 Albumin 4.0 12/21/19 12/21/19 15:41 17:50 WBC RBC Hgb Hct MCV MCH MCHC RDW Plt Count Seg Neutrophils % VBG pH 7.48 H VBG pCO2 35.3 VBG HCO3 25.6 VBG Base Excess 2.4 Sodium Potassium Chloride Carbon Dioxide Anion Gap BUN Creatinine Est GFR ( Amer) Glucose Lactic Acid 1.5 Calcium Total Bilirubin AST Alkaline Phosphatase Total Protein Albumin Impressions: Foot X-Ray 12/21/19 14:33 IMPRESSION: Diffuse soft tissue swelling. The soft tissue radiodensities that project at the level of the midfoot could represent gauze material that is on the skin. Assessment and Plan - Diagnosis (1) Left leg cellulitis Is this a current diagnosis for this admission?: Yes Plan: Start on broad-spectrum antibiotics vancomycin and Zosyn given diabetes history Follow-up blood cultures Currently febrile. Will give some Tylenol as needed. (2) Foot abscess, left Is this a current diagnosis for this admission?: Yes Plan: Surgery consulted for management of foot abscess which was recently packed in the wound clinic yesterday (3) Diabetes mellitus type 2 in obese Is this a current diagnosis for this admission?: Yes Plan: Continue metformin, sliding scale insulin (4) Morbid obesity with BMI of 60.0-69.9, adult Is this a current diagnosis for this admission?: Yes (5) Hypoxia Is this a current diagnosis for this admission?: Yes Plan: Hypoxia noted on vital signs reviewed. Currently patient denies any respiratory symptoms. Check a chest x-ray two-view. Possibly hyperventilating given body habitus. (6) Obstructive sleep apnea Is this a current diagnosis for this admission?: Yes Plan: Continue patient on nocturnal BiPAP. - Time Time Spent with patient: 35 or more minutes
--- NOTE | 2019-12-21 19:44 | EKG REPORT ---
SEVERITY:- BORDERLINE ECG - SINUS TACHYCARDIA ATRIAL PREMATURE COMPLEX PROBABLE LEFT ATRIAL ABNORMALITY LEFT AXIS DEVIATION : Confirmed by: Dalia Rutherford MD 21-Dec-2019 19:43:44
[2019-12-21] MEDS: ONDANSETRON HCL INJ/PF 4 MG/2 ML SDV IV PRN (20:17)
--- NOTE | 2019-12-21 20:27 | RADIOLOGY REPORT (SQ) ---
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 COMPARISON: 10/27/2019 FINDINGS: The heart size is enlarged with pulmonary vascular congestion. Patchy opacities at the left lung base. No large pleural effusions or pneumothorax. IMPRESSION: Pulmonary edema pattern with left lung base opacity
[2019-12-21] MEDS: INSULIN LISPRO 100 UNIT/ML 3 ML VIAL SUBCUT SCH (21:29)
[2019-12-21] MEDS ORDERED: PIPERACILLIN/TAZOBACTAM 3.375 GM VIAL IV ONE (21:35)
[2019-12-21] MEDS: PIPERACILLIN SODIUM/TAZOBACTAM 3.375 GM in NORMAL SALINE 100 ML IV SCH (21:43)
[2019-12-21] MEDS ORDERED: LOSARTAN POTASSIUM 50 MG TABLET PO ONE (21:45)
[2019-12-21] MEDS ORDERED: VANCOMYCIN HCL INJ 1000 MG VIAL IV SCH (22:00)
[2019-12-21] MEDS ORDERED: PIPERACILLIN/TAZOBACTAM 3.375 GM VIAL IV SCH (22:00)
[2019-12-21] MEDS: METOPROLOL TARTRATE 50 MG TABLET PO SCH (22:21)
[2019-12-21] MEDS: FLUOXETINE HCL 20 MG CAPSULE PO SCH (22:22)
[2019-12-21] MEDS: ATORVASTATIN CALCIUM 20 MG TABLET PO SCH (22:22)
[2019-12-21] MEDS: ENOXAPARIN SODIUM INJ 40 MG/0.4 ML DISP.SYRIN SUBCUT SCH (22:22)
[2019-12-22] MEDS: NORMAL SALINE 1000 ML 1,000 ML IV PRN ×2 (00:29→18:24)
[2019-12-22] MEDS ORDERED: VANCOMYCIN HCL 1,500 MG in DEXTROSE 5%-WATER 250 ML IV SCH (02:00)
[2019-12-22] MEDS: PIPERACILLIN SODIUM/TAZOBACTAM 3.375 GM in NORMAL SALINE 100 ML IV SCH (06:09)
[2019-12-22] MEDS ORDERED: METFORMIN HCL 500 MG TABLET PO SCH (08:00)
[2019-12-22] MEDS: INSULIN LISPRO 100 UNIT/ML 3 ML VIAL SUBCUT SCH ×4 (08:20→23:07)
[2019-12-22 09:20] LABS: HEMATOCRIT 36.5 % (37.9-51.0); HEMOGLOBIN 12.4 g/dL (13.5-17.0); MEAN CORPUSCULAR HEMOGLOBIN 27.4 pg (27.0-33.4); MEAN CORPUSCULAR HGB CONC 34.1 g/dL (32.0-36.0); MEAN CORPUSCULAR VOLUME 81 fl (80-97); PLATELET COUNT 157 10^3/uL (150-450); RED BLOOD COUNT 4.53 10^6/uL (4.35-5.55); RED CELL DISTRIBUTION WIDTH 17.1 % (11.5-14.0); WHITE BLOOD COUNT 15.7 10^3/uL (4.0-10.5)
[2019-12-22 09:39] LABS: ANION GAP 12 (5-19); BLOOD UREA NITROGEN 31 mg/dL (7-20); CALCIUM 7.9 mg/dL (8.4-10.2); CARBON DIOXIDE 26 mmol/L (22-30); CHLORIDE 98 mmol/L (98-107); GLUCOSE 112 mg/dL (75-110); PHOSPHORUS 3.7 mg/dL (2.5-4.5); POTASSIUM 3.6 mmol/L (3.6-5.0)
[2019-12-22 09:45] LABS: ABSOLUTE LYMPHOCYTES# (MANUAL) 0.6 10^3/uL (0.5-4.7); ABSOLUTE MONOCYTES # (MANUAL) 0.3 10^3/uL (0.1-1.4); BAND NEUTROPHILS % (MANUAL) 2 % (3-5); BASOPHILS % (MANUAL) 0 % (0-2); EOSINOPHILS % (MANUAL) 0 % (0-6); LYMPHOCYTES % (MANUAL) 4 % (13-45); MONOCYTES % (MANUAL) 2 % (3-13); SEGMENTED NEUTROPHILS % (MAN) 92 % (42-78); TOTAL CELLS COUNTED 100
[2019-12-22 09:46] LABS: ANISOCYTOSIS 1+; HYPOCHROMASIA SLIGHT; PLATELET COMMENT ADEQUATE
[2019-12-22] MEDS ORDERED: LOSARTAN POTASSIUM 50 MG TABLET PO SCH (10:00)
--- NOTE | 2019-12-22 10:24 | PDOC PROGRESS REPORT ---
Subjective Progress Note for:: 12/22/19 Subjective:: 44 year old male with a history of type 2 diabetes mellitus, hypertension, chronic diabetic foot ulcer, who presents to the hospital with complaints of fever. Of note patient was recently admitted in the hospital for cellulitis and pneumonia. Completed antibiotic course with improvement of symptoms. Patient has been going to the wound clinic for continued management of his foot wound. He was noted to have an abscess in his left foot at the wound clinic yesterday which was incised and drained and packing was placed. He was given antibiotics Bactrim to take at home which he picked up today. However patient decided to come to the hospital today because he was having fevers. Patient notably has some swelling and redness along the lines of his left lower extremity up to his knee. 12/22[birth year][id number]-rom[age]-old male with history of type 2 diabetes mellitus, hy pertension chronic left lower leg diabetic foot ulcer status post IND at wound care center admitted with fevers. And also found to have pneumonia. Presently on IV vancomycin and Zosyn creatinine bumped up from 1.1-to 2.34 today. Hold vancomycin and Zosyn started on IV cephapirin. Cultures are pending. Surgical consult was done. Reason For Visit: CELLULITIS ,FEVER Physical Exam Vital Signs: Temp Pulse Resp BP Pulse Ox 99.0 F 68 35 H 113/54 L 92 12/22/19 05:35 12/22/19 02:09 12/22/19 08:03 12/22/19 08:03 12/22/19 08:03 Intake & Output 12/21/19 12/22/19 12/23/19 06:59 06:59 06:59 Intake Total 3550 Balance 3550 Weight 214.4 kg General appearance: PRESENT: no acute distress, morbidly obese, other Head exam: PRESENT: atraumatic Eye exam: PRESENT: PERRLA Mouth exam: PRESENT: moist, tongue midline Neck exam: ABSENT: carotid bruit, JVD, lymphadenopathy, thyromegaly Respiratory exam: PRESENT: decreased breath sounds Cardiovascular exam: PRESENT: RRR. ABSENT: diastolic murmur, rubs, systolic murmur GI/Abdominal exam: PRESENT: normal bowel sounds, soft. ABSENT: distended, guarding, mass, organolmegaly, rebound, tenderness Rectal exam: PRESENT: deferred Extremities exam: PRESENT: +1 edema, other - Left lower leg wrapped in a dressing. Neurological exam: PRESENT: alert, awake, oriented to person, oriented to place, oriented to time, oriented to situation, CN II-XII grossly intact. ABSENT: motor sensory deficit Psychiatric exam: PRESENT: appropriate affect, normal mood. ABSENT: homicidal ideation, suicidal ideation Results Laboratory Results: 12/22/19 08:50 12/22/19 08:50 12/21/19 12/21/19 12/21/19 14:56 14:56 14:56 WBC 18.2 H RBC 5.05 Hgb 13.4 L Hct 40.7 MCV 81 MCH 26.6 L MCHC 33.0 RDW 16.8 H Plt Count 174 Seg Neutrophils % Not Reportable VBG pH VBG pCO2 VBG HCO3 VBG Base Excess Sodium 136.1 L Potassium 3.3 L Chloride 96 L Carbon Dioxide 28 Anion Gap 12 BUN 18 Creatinine 1.12 Est GFR ( Amer) > 60 Glucose 174 H Lactic Acid 1.8 Calcium 8.6 Phosphorus Magnesium Total Bilirubin 0.9 AST 23 Alkaline Phosphatase 82 Total Protein 7.6 Albumin 4.0 12/21/19 12/21/19 12/21/19 15:41 17:50 20:35 WBC RBC Hgb Hct MCV MCH MCHC RDW Plt Count Seg Neutrophils % VBG pH 7.48 H VBG pCO2 35.3 VBG HCO3 25.6 VBG Base Excess 2.4 Sodium Potassium Chloride Carbon Dioxide Anion Gap BUN Creatinine Est GFR ( Amer) Glucose Lactic Acid 1.5 1.2 Calcium Phosphorus Magnesium Total Bilirubin AST Alkaline Phosphatase Total Protein Albumin 12/22/19 12/22/19 08:50 08:50 WBC 15.7 H RBC 4.53 Hgb 12.4 L Hct 36.5 L MCV 81 MCH 27.4 MCHC 34.1 RDW 17.1 H Plt Count 157 Seg Neutrophils % Not Reportable VBG pH VBG pCO2 VBG HCO3 VBG Base Excess Sodium 136.2 L Potassium 3.6 Chloride 98 Carbon Dioxide 26 Anion Gap 12 BUN 31 H Creatinine 2.34 H Est GFR ( Amer) 37 L Glucose 112 H Lactic Acid Calcium 7.9 L Phosphorus 3.7 Magnesium 1.7 Total Bilirubin AST Alkaline Phosphatase Total Protein Albumin Impressions: Chest X-Ray 12/21/19 00:00 IMPRESSION: Pulmonary edema pattern with left lung base opacity Foot X-Ray 12/21/19 14:33 IMPRESSION: Diffuse soft tissue swelling. The soft tissue radiodensities that project at the level of the midfoot could represent gauze material that is on the skin. Assessment and Plan - Diagnosis (1) Left leg cellulitis Is this a current diagnosis for this admission?: Yes Plan: Start on broad-spectrum antibiotics vancomycin and Zosyn given diabetes history Follow-up blood cultures Currently febrile. Will give some Tylenol as needed. [id number]-patient admitted with left lower leg wound diabetic wound. Surgical team is following the patient. Blood cultures are pending. Patient is presently on vancomycin and Zosyn developed JW. Plan to switch the antibiotic to cefepime. To do the renal ultrasound. (2) Foot abscess, left Is this a current diagnosis for this admission?: Yes Plan: Surgery consulted for management of foot abscess which was recently packed in the wound clinic yesterday (3) Diabetes mellitus type 2 in obese Is this a current diagnosis for this admission?: No Plan: Continue metformin, sliding scale insulin.. 12/22/19-patient has history of type 2 diabetes mellitus. On insulin sliding scale. To hold metformin because patient developed JW and to check for hemoglobin A1c. (4) Morbid obesity with BMI of 50.0-59.9, adult Is this a current diagnosis for this admission?: No Plan: 12/22/2019-patient BMI is more than 62 diet exercise weight loss lifestyle modifications discussed with the patient. (5) JW (acute kidney injury) Is this a current diagnosis for this admission?: Yes Plan: 12/22/2019-patient baseline creatinine is around 1.12 worsened to 2.34 today. Presently on vancomycin and Zosyn to hold those medications and started on cefepime. Plan to recheck the labs tomorrow. Renal ultrasound is requested. (6) Hypoxia Is this a current diagnosis for this admission?: Yes Plan: Hypoxia noted on vital signs reviewed. Currently patient denies any respiratory symptoms. Check a chest x-ray two-view. Possibly hyperventilating given body habitus. (7) Obstructive sleep apnea Is this a current diagnosis for this admission?: No Plan: Continue patient on nocturnal BiPAP.
[2019-12-22] MEDS ORDERED: NORMAL SALINE 1000 ML 1,000 ML IV PRN (10:25)
[2019-12-22] MEDS: METOPROLOL TARTRATE 50 MG TABLET PO SCH ×2 (10:30→21:38)
[2019-12-22] MEDS: ASPIRIN 81 MG TABLET, ENT COATED PO SCH (10:40)
[2019-12-22] MEDS: ENOXAPARIN SODIUM INJ 40 MG/0.4 ML DISP.SYRIN SUBCUT SCH (10:40)
[2019-12-22] MEDS ORDERED: CEFEPIME 2 GM/D5W RTU 2 GM/50 ML RTUPB IV SCH (11:00)
--- NOTE | 2019-12-22 12:45 | RADIOLOGY REPORT (SQ) ---
EXAM DESCRIPTION: U/S RETROPERITON (RENAL/AORTA) COMPLETED DATE/TIME: 12/22/2019 11:05 am REASON FOR STUDY: judith COMPARISON: None. TECHNIQUE: Dynamic and static grayscale images acquired of the kidneys and bladder and recorded on P ACS. Additional selected color Doppler and spectral images recorded. LIMITATIONS: None. FINDINGS: RIGHT KIDNEY: Normal size, 13.3 cm. Normal echogenicity. No solid or suspicious masses. No hydronephrosis. No calcifications. LEFT KIDNEY: Normal size, 13.1 cm. Normal echogenicity. No solid or suspicious masses. Cannot entir ruben exclude mild hydronephrosis. No calcifications. BLADDER: No masses. OTHER FINDINGS: No other significant finding. IMPRESSION: Cannot entirely exclude mild left hydronephrosis. Evaluation limited by body habitus. TECHNICAL DOCUMENTATION: JOB ID: [id number] 2010 [employer]- All Rights Reserved Reading location - IP/workstation name: [email or web address]
[2019-12-22] MEDS: ONDANSETRON HCL INJ/PF 4 MG/2 ML SDV IV PRN (14:04)
[2019-12-22] MEDS: FLUOXETINE HCL 20 MG CAPSULE PO SCH ×2 (21:37)
[2019-12-22] MEDS: ATORVASTATIN CALCIUM 20 MG TABLET PO SCH ×2 (21:38→21:44)
[2019-12-22] MEDS: CEFEPIME HCL 2 GM in DEXTROSE 5%-WATER 50 ML IV SCH (21:43)
[2019-12-22] MEDS ORDERED: METOPROLOL TARTRATE 50 MG TABLET PO SCH (22:00)
[2019-12-23 06:29] LABS: ABSOLUTE LYMPHOCYTES (AUTO) 0.6 10^3/uL (0.5-4.7); ABSOLUTE MONOCYTES (AUTO) 0.8 10^3/uL (0.1-1.4); ABSOLUTE NEUT (AUTO) 10.1 10^3/uL (1.7-8.2); BASOPHILS % (AUTO) 0.1 % (0-2); HEMATOCRIT 35.3 % (37.9-51.0); HEMOGLOBIN 11.6 g/dL (13.5-17.0); LYMPHOCYTES % (AUTO) 5.4 % (13-45); MEAN CORPUSCULAR HEMOGLOBIN 26.6 pg (27.0-33.4); MEAN CORPUSCULAR HGB CONC 32.8 g/dL (32.0-36.0); MEAN CORPUSCULAR VOLUME 81 fl (80-97); PLATELET COUNT 134 10^3/uL (150-450); RED BLOOD COUNT 4.36 10^6/uL (4.35-5.55); RED CELL DISTRIBUTION WIDTH 17.2 % (11.5-14.0); SEGMENTED NEUTROPHILS % (AUTO) 87.5 % (42-78); TOTAL CELLS COUNTED % (AUTO) 100 %; WHITE BLOOD COUNT 11.5 10^3/uL (4.0-10.5)
--- NOTE | 2019-12-23 06:51 | PDOC PROGRESS REPORT ---
Subjective Progress Note for:: 12/23/19 Subjective:: feels ok Reason For Visit: CELLULITIS ,FEVER Physical Exam Vital Signs: Temp Pulse Resp BP Pulse Ox 98.7 F 65 14 146/80 H 92 12/23/19 01:00 12/23/19 01:00 12/23/19 04:43 12/23/19 01:00 12/23/19 01:00 Intake & Output 12/21/19 12/22/19 12/23/19 06:59 06:59 06:59 Intake Total 3550 1544 Balance 3550 1544 Weight 214.4 kg General appearance: PRESENT: no acute distress Head exam: PRESENT: normocephalic Eye exam: PRESENT: EOMI Mouth exam: PRESENT: moist Teeth exam: PRESENT: poor dentation Neck exam: PRESENT: full ROM Respiratory exam: PRESENT: clear to auscultation charlette Cardiovascular exam: PRESENT: RRR Pulses: PRESENT: other - feet warm, cannot palpate pulses secondary to massive lymphedema Vascular exam: PRESENT: normal capillary refill GI/Abdominal exam: PRESENT: other - morbidly obese iwth large abd pannus Rectal exam: PRESENT: deferred Extremities exam: PRESENT: other - left lower ext massivly swollen due to lymphedema,(unchanged per pt) still cellulitc over dorsum of foot, pack removed, min drainage. Neurological exam: PRESENT: alert Psychiatric exam: PRESENT: appropriate affect Skin exam: PRESENT: dry Results Laboratory Results: 12/23/19 06:20 12/22/19 12/22/19 12/23/19 08:50 08:50 06:20 WBC 15.7 H 11.5 H RBC 4.53 4.36 Hgb 12.4 L 11.6 L Hct 36.5 L 35.3 L MCV 81 81 MCH 27.4 26.6 L MCHC 34.1 32.8 RDW 17.1 H 17.2 H Plt Count 157 134 L Seg Neutrophils % Not Reportable 87.5 H Sodium 136.2 L Potassium 3.6 Chloride 98 Carbon Dioxide 26 Anion Gap 12 BUN 31 H Creatinine 2.34 H Est GFR ( Amer) 37 L Glucose 112 H Calcium 7.9 L Phosphorus 3.7 Magnesium 1.7 Impressions: Chest X-Ray 12/21/19 00:00 IMPRESSION: Pulmonary edema pattern with left lung base opacity Foot X-Ray 12/21/19 14:33 IMPRESSION: Diffuse soft tissue swelling. The soft tissue radiodensities that project at the level of the midfoot could represent gauze material that is on the skin. Renal Ultrasound 12/22/19 00:00 IMPRESSION: Cannot entirely exclude mild left hydronephrosis. Evaluation limited by body habitus. Assessment & Plan - Plan Summary Plan Summary: left foot infection cellulitis lymphedema, chronic massive obesity plan removed packing no significant drainage or evidence of necrosis would cont iv abx foot elevation.
[2019-12-23 06:56] LABS: ALBUMIN 3.2 g/dL (3.5-5.0); ALKALINE PHOSPHATASE 61 U/L (38-126); ANION GAP 9 (5-19); ASPARTATE AMINO TRANSFERASE 20 U/L (17-59); BILIRUBIN,DIRECT 0.1 mg/dL (0.0-0.4); BILIRUBIN,TOTAL 0.5 mg/dL (0.2-1.3); BLOOD UREA NITROGEN 30 mg/dL (7-20); CALCIUM 7.9 mg/dL (8.4-10.2); CARBON DIOXIDE 27 mmol/L (22-30); CHLORIDE 102 mmol/L (98-107); GLUCOSE 111 mg/dL (75-110); POTASSIUM 3.5 mmol/L (3.6-5.0); TOTAL PROTEIN 6.3 g/dL (6.3-8.2)
[2019-12-23] MEDS ORDERED: POTASSIUM CHLORIDE 10 MEQ TABLET.ER PO ONE ×2 (09:00→10:38)
[2019-12-23] MEDS: INSULIN LISPRO 100 UNIT/ML 3 ML VIAL SUBCUT SCH ×4 (09:28→21:34)
[2019-12-23] MEDS: CEFEPIME HCL 2 GM in DEXTROSE 5%-WATER 50 ML IV SCH ×2 (09:34→21:16)
[2019-12-23] MEDS: ONDANSETRON HCL INJ/PF 4 MG/2 ML SDV IV PRN ×2 (09:34→16:21)
[2019-12-23] MEDS ORDERED: SULFAMETHOX/TRIMETH 800-160 MG/10 ML VIAL IV SCH (10:00)
[2019-12-23] MEDS: SILVER SULFADIAZINE 1% CREAM 400 GM TP SCH ×3 (10:35→17:05)
[2019-12-23] MEDS: LOSARTAN POTASSIUM 50 MG TABLET PO SCH (10:42)
[2019-12-23] MEDS: METOPROLOL TARTRATE 50 MG TABLET PO SCH ×2 (10:42→21:16)
[2019-12-23] MEDS: ASPIRIN 81 MG TABLET, ENT COATED PO SCH (10:42)
[2019-12-23] MEDS: ENOXAPARIN SODIUM INJ 40 MG/0.4 ML DISP.SYRIN SUBCUT SCH (10:43)
[2019-12-23] MEDS: ASPIRIN 81 MG TABLET, CHEWABLE PO SCH (10:44)
[2019-12-23] MEDS: SULFAMETHOXAZOLE/TRIMETHOPRIM 160 MG in DEXTROSE 5%-WATER 250 ML IV SCH ×2 (10:44→22:12)
[2019-12-23] MEDS ORDERED: METOCLOPRAMIDE HCL INJ/PF 10 MG/2 ML SDV IV ONE ×2 (12:15→17:30)
--- NOTE | 2019-12-23 14:51 | PDOC PROGRESS REPORT ---
Subjective Progress Note for:: 12/23/19 Subjective:: Less pains left lower leg Reason For Visit: CELLULITIS ,FEVER Physical Exam Vital Signs: Temp Pulse Resp BP Pulse Ox 98.6 F 72 20 128/57 H 98 12/23/19 11:00 12/23/19 11:00 12/23/19 11:00 12/23/19 11:00 12/23/19 11:00 Intake & Output 12/22/19 12/23/19 12/24/19 06:59 06:59 06:59 Intake Total 3550 1544 310 Balance 3550 1544 310 Weight 214.4 kg Exam: Cellulitis along the left lower leg and foot appears to be improving. Continue with the IV antibiotics. We will sign off and call for any questions Results Laboratory Results: 12/23/19 06:20 12/23/19 06:20 12/23/19 12/23/19 06:20 06:20 WBC 11.5 H RBC 4.36 Hgb 11.6 L Hct 35.3 L MCV 81 MCH 26.6 L MCHC 32.8 RDW 17.2 H Plt Count 134 L Seg Neutrophils % 87.5 H Sodium 138.0 Potassium 3.5 L Chloride 102 Carbon Dioxide 27 Anion Gap 9 BUN 30 H Creatinine 1.22 Est GFR ( Amer) > 60 Glucose 111 H Calcium 7.9 L Magnesium 2.0 Total Bilirubin 0.5 AST 20 Alkaline Phosphatase 61 Total Protein 6.3 Albumin 3.2 L Impressions: Chest X-Ray 12/21/19 00:00 IMPRESSION: Pulmonary edema pattern with left lung base opacity Foot X-Ray 12/21/19 14:33 IMPRESSION: Diffuse soft tissue swelling. The soft tissue radiodensities that project at the level of the midfoot could represent gauze material that is on the skin. Renal Ultrasound 12/22/19 00:00 IMPRESSION: Cannot entirely exclude mild left hydronephrosis. Evaluation limited by body habitus. Assessment & Plan - Diagnosis (1) Diabetes Qualifiers: Diabetes mellitus type: type 2 Is this a current diagnosis for this admission?: Yes (2) Left leg cellulitis Is this a current diagnosis for this admission?: Yes (3) Morbid obesity with BMI of 50.0-59.9, adult Is this a current diagnosis for this admission?: No (4) Obstructive sleep apnea Is this a current diagnosis for this admission?: No
--- NOTE | 2019-12-23 15:12 | PDOC PROGRESS REPORT ---
Subjective Progress Note for:: 12/23/19 Subjective:: Patient complained of some nausea today. Denies any shortness of breath. States that fever has resolved. States that his leg looks better in terms of the redness. Reason For Visit: CELLULITIS ,FEVER Physical Exam Vital Signs: Temp Pulse Resp BP Pulse Ox 98.6 F 72 20 128/57 H 98 12/23/19 11:00 12/23/19 11:00 12/23/19 11:00 12/23/19 11:00 12/23/19 11:00 Intake & Output 12/22/19 12/23/19 12/24/19 06:59 06:59 06:59 Intake Total 3550 1544 310 Balance 3550 1544 310 Weight 214.4 kg General appearance: PRESENT: no acute distress, cooperative Neck exam: ABSENT: JVD Respiratory exam: PRESENT: clear to auscultation charlette, unlabored. ABSENT: tachypnea, wheezes Cardiovascular exam: PRESENT: RRR, +S1, +S2. ABSENT: tachycardia GI/Abdominal exam: PRESENT: normal bowel sounds, soft. ABSENT: rebound, rigid, tenderness Musculoskeletal exam: PRESENT: other - Redness in the left leg Neurological exam: PRESENT: alert, awake, oriented to person, oriented to place, oriented to time Results Laboratory Results: 12/23/19 06:20 12/23/19 06:20 12/23/19 12/23/19 06:20 06:20 WBC 11.5 H RBC 4.36 Hgb 11.6 L Hct 35.3 L MCV 81 MCH 26.6 L MCHC 32.8 RDW 17.2 H Plt Count 134 L Seg Neutrophils % 87.5 H Sodium 138.0 Potassium 3.5 L Chloride 102 Carbon Dioxide 27 Anion Gap 9 BUN 30 H Creatinine 1.22 Est GFR ( Amer) > 60 Glucose 111 H Calcium 7.9 L Magnesium 2.0 Total Bilirubin 0.5 AST 20 Alkaline Phosphatase 61 Total Protein 6.3 Albumin 3.2 L Impressions: Chest X-Ray 12/21/19 00:00 IMPRESSION: Pulmonary edema pattern with left lung base opacity Foot X-Ray 12/21/19 14:33 IMPRESSION: Diffuse soft tissue swelling. The soft tissue radiodensities that project at the level of the midfoot could represent gauze material that is on the skin. Renal Ultrasound 12/22/19 00:00 IMPRESSION: Cannot entirely exclude mild left hydronephrosis. Evaluation limited by body habitus. Assessment and Plan - Diagnosis (1) Left leg cellulitis Is this a current diagnosis for this admission?: Yes Plan: Continue cefepime. Add Bactrim IV for broad coverage. Day 2.5 of antibiotics. Leukocytosis seems to be improving. Continue to follow blood cultures. (2) Foot abscess, left Is this a current diagnosis for this admission?: Yes Plan: Surgery consulted for management of foot abscess (3) Diabetes mellitus type 2 in obese Is this a current diagnosis for this admission?: No Plan: Metformin on hold given JW. Continue sliding scale insulin. Hemoglobin A1c of 6.6 showing excellent control. Monitor blood sugars. (4) Morbid obesity with BMI of 60.0-69.9, adult Is this a current diagnosis for this admission?: Yes Plan: Patient counseled on weight loss (5) Hypoxia Is this a current diagnosis for this admission?: Yes Plan: Chest x-ray on admission did suggest mild leg edema with left lung base opacity. However when compared to his most prior chest x-ray last month, these findings actually look a lot more improved and are likely residual from his recently treated pneumonia. I will leave his current hypoxia on occasion is probably from obesity hypoventilation. We will maintain on BiPAP as needed when patient is sleeping and at nighttime. Patient uses BiPAP at home. (6) Obstructive sleep apnea Is this a current diagnosis for this admission?: No Plan: Continue patient on nocturnal BiPAP. - Time Time Spent with patient: Less than 15 minutes
[2019-12-23 20:34] LABS: C DIFFICILE GDH NEGATIVE (NEGATIVE)
[2019-12-23] MEDS: PROMETHAZINE HCL INJ 25 MG/1 ML VIAL IV PRN (21:09)
[2019-12-23] MEDS: ATORVASTATIN CALCIUM 20 MG TABLET PO SCH (21:16)
[2019-12-23] MEDS: FLUOXETINE HCL 20 MG CAPSULE PO SCH (21:16)
[2019-12-24 05:07] LABS: ABSOLUTE MONOCYTES (AUTO) 0.9 10^3/uL (0.1-1.4); ABSOLUTE NEUT (AUTO) 7.9 10^3/uL (1.7-8.2); BASOPHILS % (AUTO) 0.2 % (0-2); EOSINOPHILS % (AUTO) 0.2 % (0-6); HEMATOCRIT 34.8 % (37.9-51.0); HEMOGLOBIN 11.3 g/dL (13.5-17.0); MEAN CORPUSCULAR HEMOGLOBIN 26.5 pg (27.0-33.4); MEAN CORPUSCULAR HGB CONC 32.6 g/dL (32.0-36.0); MEAN CORPUSCULAR VOLUME 81 fl (80-97); MONOCYTES % (AUTO) 8.8 % (3-13); PLATELET COUNT 149 10^3/uL (150-450); RED BLOOD COUNT 4.28 10^6/uL (4.35-5.55); RED CELL DISTRIBUTION WIDTH 16.9 % (11.5-14.0); SEGMENTED NEUTROPHILS % (AUTO) 80.8 % (42-78); TOTAL CELLS COUNTED % (AUTO) 100 %; WHITE BLOOD COUNT 9.8 10^3/uL (4.0-10.5)
[2019-12-24 05:45] LABS: ANION GAP 9 (5-19); BLOOD UREA NITROGEN 27 mg/dL (7-20); CALCIUM 8.3 mg/dL (8.4-10.2); CARBON DIOXIDE 28 mmol/L (22-30); CHLORIDE 104 mmol/L (98-107); GLUCOSE 113 mg/dL (75-110); POTASSIUM 3.5 mmol/L (3.6-5.0)
[2019-12-24] MEDS: INSULIN LISPRO 100 UNIT/ML 3 ML VIAL SUBCUT SCH ×4 (08:28→23:27)
[2019-12-24] MEDS: POTASSIUM CHLORIDE 10 MEQ TABLET.ER PO SCH ×2 (08:39→14:39)
[2019-12-24] MEDS: PROMETHAZINE HCL INJ 25 MG/1 ML VIAL IV PRN ×2 (08:39→12:51)
[2019-12-24] MEDS: ENOXAPARIN SODIUM INJ 40 MG/0.4 ML DISP.SYRIN SUBCUT SCH (10:26)
[2019-12-24] MEDS: ASPIRIN 81 MG TABLET, CHEWABLE PO SCH (10:26)
[2019-12-24] MEDS: LOSARTAN POTASSIUM 50 MG TABLET PO SCH (10:26)
[2019-12-24] MEDS: METOPROLOL TARTRATE 50 MG TABLET PO SCH ×2 (10:26→21:21)
[2019-12-24] MEDS: CEFEPIME HCL 2 GM in DEXTROSE 5%-WATER 50 ML IV SCH ×2 (10:27→21:20)
--- NOTE | 2019-12-24 10:52 | PDOC PROGRESS REPORT ---
Subjective Progress Note for:: 12/24/19 Subjective:: Patient feels better today. Most of his nausea has resolved. Still having a few bouts of diarrhea. Complains of mostly dark brown stools. Reason For Visit: CELLULITIS ,FEVER Physical Exam Vital Signs: Temp Pulse Resp BP Pulse Ox 98.7 F 65 20 170/108 H 95 12/24/19 08:00 12/24/19 08:00 12/24/19 08:00 12/24/19 08:00 12/24/19 08:57 Intake & Output 12/23/19 12/24/19 12/25/19 06:59 06:59 06:59 Intake Total 1544 1704 Balance 1544 1704 General appearance: PRESENT: no acute distress, cooperative Neck exam: ABSENT: JVD Respiratory exam: PRESENT: clear to auscultation charlette, tachypnea - Mildly, unlabored. ABSENT: wheezes Cardiovascular exam: PRESENT: RRR, +S1, +S2. ABSENT: tachycardia GI/Abdominal exam: PRESENT: soft. ABSENT: rebound, rigid, tenderness Extremities exam: PRESENT: other - Left leg swelling and blanching with erythema. Neurological exam: PRESENT: alert, awake, oriented to person, oriented to place, oriented to time Results Laboratory Results: 12/24/19 04:39 12/24/19 04:39 12/23/19 12/24/19 12/24/19 18:41 04:39 04:39 WBC 9.8 RBC 4.28 L Hgb 11.3 L Hct 34.8 L MCV 81 MCH 26.5 L MCHC 32.6 RDW 16.9 H Plt Count 149 L Seg Neutrophils % 80.8 H Sodium 141.0 Potassium 3.5 L Chloride 104 Carbon Dioxide 28 Anion Gap 9 BUN 27 H Creatinine 0.92 Est GFR ( Amer) > 60 Glucose 113 H Calcium 8.3 L Stool Occult Blood POSITIVE Impressions: Chest X-Ray 12/21/19 00:00 IMPRESSION: Pulmonary edema pattern with left lung base opacity Foot X-Ray 12/21/19 14:33 IMPRESSION: Diffuse soft tissue swelling. The soft tissue radiodensities that project at the level of the midfoot could represent gauze material that is on the skin. Renal Ultrasound 12/22/19 00:00 IMPRESSION: Cannot entirely exclude mild left hydronephrosis. Evaluation limited by body habitus. Assessment and Plan - Diagnosis (1) Left leg cellulitis Is this a current diagnosis for this admission?: Yes Plan: Continue cefepime and Bactrim IV for broad coverage. Day 3.5 of IV antibiotics. Leukocytosis has resolved. Blood culture negative over the past 48 hours and afebrile. Plan to DC tomorrow on p.o. antibiotics. (2) Foot abscess, left Is this a current diagnosis for this admission?: Yes Plan: Surgery consulted for management of foot abscess (3) Diabetes mellitus type 2 in obese Is this a current diagnosis for this admission?: No Plan: Metformin on hold given JW. Continue sliding scale insulin. Hemoglobin A1c of 6.6 showing excellent control. Monitor blood sugars. (4) Morbid obesity with BMI of 60.0-69.9, adult Is this a current diagnosis for this admission?: Yes (5) Hypoxia Is this a current diagnosis for this admission?: Yes Plan: Chest x-ray on admission did suggest mild leg edema with left lung base opacity. However when compared to his most prior chest x-ray last month, these findings actually look a lot more improved and are likely residual from his recently treated pneumonia. Check vital signs while I was in the room and SPO2 persisted 95% on room air. Patient states that he has been off oxygen for over a day now. Possible error in documentation of vital signs otherwise may have been due to brief episodes of hypoventilation given weight. (6) Obstructive sleep apnea Is this a current diagnosis for this admission?: No Plan: Continue patient on nocturnal BiPAP. - Time Time Spent with patient: 15-24 minutes
[2019-12-24] MEDS: SULFAMETHOXAZOLE/TRIMETHOPRIM 160 MG in DEXTROSE 5%-WATER 250 ML IV SCH (11:54)
[2019-12-24] MEDS: SILVER SULFADIAZINE 1% CREAM 400 GM TP SCH ×2 (11:54→17:48)
[2019-12-24] MEDS: ONDANSETRON HCL INJ/PF 4 MG/2 ML SDV IV PRN (15:17)
[2019-12-24] MEDS ORDERED: LOPERAMIDE HCL 2 MG CAPSULE PO PRN (15:48)
[2019-12-24] MEDS ORDERED: SULFAMETHOXAZOLE/TRIMETHOPRIM 160 MG in DEXTROSE 5%-WATER 250 ML IV SCH (18:00)
[2019-12-24] MEDS: ATORVASTATIN CALCIUM 20 MG TABLET PO SCH (21:21)
[2019-12-24] MEDS: FLUOXETINE HCL 20 MG CAPSULE PO SCH (22:45)
[2019-12-25] MEDS ORDERED: SULFAMETHOXAZOLE/TRIMETHOPRIM 160 MG in DEXTROSE 5%-WATER 250 ML IV SCH (06:00)
[2019-12-25] MEDS: INSULIN LISPRO 100 UNIT/ML 3 ML VIAL SUBCUT SCH ×4 (08:13→22:51)
[2019-12-25] MEDS: CEFEPIME HCL 2 GM in DEXTROSE 5%-WATER 50 ML IV SCH (09:16)
[2019-12-25] MEDS: FUROSEMIDE INJ/PF 40 MG/4 ML SDV IV SCH ×2 (09:18→19:01)
[2019-12-25] MEDS: LOSARTAN POTASSIUM 50 MG TABLET PO SCH (09:20)
[2019-12-25] MEDS: ENOXAPARIN SODIUM INJ 40 MG/0.4 ML DISP.SYRIN SUBCUT SCH (09:20)
[2019-12-25] MEDS: METOPROLOL TARTRATE 50 MG TABLET PO SCH ×2 (09:20→22:45)
[2019-12-25] MEDS: ASPIRIN 81 MG TABLET, CHEWABLE PO SCH (09:20)
[2019-12-25] MEDS: SILVER SULFADIAZINE 1% CREAM 400 GM TP SCH ×2 (09:31→17:57)
[2019-12-25 11:47] LABS: ANION GAP 8 (5-19); BLOOD UREA NITROGEN 28 mg/dL (7-20); CALCIUM 8.2 mg/dL (8.4-10.2); CARBON DIOXIDE 29 mmol/L (22-30); CHLORIDE 105 mmol/L (98-107); GLUCOSE 94 mg/dL (75-110)
--- NOTE | 2019-12-25 14:34 | PDOC PROGRESS REPORT ---
Subjective Progress Note for:: 12/25/19 Subjective:: Patient denies any shortness of breath or chest pain today. States that his nausea is resolving. Slept with his BiPAP. Reason For Visit: CELLULITIS ,FEVER Physical Exam Vital Signs: Temp Pulse Resp BP Pulse Ox 98.4 F 83 16 132/53 H 90 L 12/25/19 12:00 12/25/19 12:00 12/25/19 12:00 12/25/19 12:00 12/25/19 12:00 Intake & Output 12/24/19 12/25/19 12/26/19 06:59 06:59 06:59 Intake Total 1704 1064 260 Balance 1704 1064 260 Weight 209.7 kg General appearance: PRESENT: no acute distress, cooperative Neck exam: ABSENT: JVD Respiratory exam: PRESENT: symmetrical, unlabored. ABSENT: crackles, rhonchi, tachypnea, wheezes Cardiovascular exam: PRESENT: RRR, +S1, +S2. ABSENT: tachycardia GI/Abdominal exam: PRESENT: soft. ABSENT: rebound, rigid, tenderness Neurological exam: PRESENT: alert, awake, oriented to person, oriented to place, oriented to time Results Laboratory Results: 12/24/19 04:39 12/25/19 10:49 12/25/19 10:49 Sodium 142.1 Potassium 4.0 Chloride 105 Carbon Dioxide 29 Anion Gap 8 BUN 28 H Creatinine 0.79 Est GFR ( Amer) > 60 Glucose 94 Calcium 8.2 L Magnesium 2.4 H 12/25/19 10:49 NT-Pro-B Natriuret Pep 2200 H Impressions: Chest X-Ray 12/21/19 00:00 IMPRESSION: Pulmonary edema pattern with left lung base opacity Foot X-Ray 12/21/19 14:33 IMPRESSION: Diffuse soft tissue swelling. The soft tissue radiodensities that project at the level of the midfoot could represent gauze material that is on the skin. Renal Ultrasound 12/22/19 00:00 IMPRESSION: Cannot entirely exclude mild left hydronephrosis. Evaluation limited by body habitus. Assessment and Plan - Diagnosis (1) Left leg cellulitis Is this a current diagnosis for this admission?: Yes Plan: Patient cellulitis continues to improve. He has received about 4 days of IV a ntibiotics. Transition to p.o. Bactrim. Leukocytosis has resolved. Blood culture negative over the past 48 hours and afebrile. (2) Hypoxia Is this a current diagnosis for this admission?: Yes Plan: Patient continues to have documented hypoxia on vital signs. I have reviewed his most recent hospital stay during which he was not hypoxic. Given his Acute hypoxic respiratory failure, chest x-ray findings of increased pulmonary vascular congestion and gradual jump in BNP, I suspect patient may have acute congestive heart failure probably diastolic CHF. Will diurese with Lasix IV 40 mg twice a day today and check echocardiogram. Hopefully this will help improve his hypoxia. I also suspect hypoventilation periodically especially given his weight as often times, on my measurement, spo2 of 93 on RA and then later documentation of vitals catches his hypoxia. (3) Foot abscess, left Is this a current diagnosis for this admission?: Yes Plan: s/p I&D outpatient. Cleared by surgery (4) Diabetes mellitus type 2 in obese Is this a current diagnosis for this admission?: No Plan: Blood sugars remain adequately controlled. Continue sliding scale insulin. Hemoglobin A1c of 6.6 showing excellent control. Monitor blood sugars. (5) Morbid obesity with BMI of 60.0-69.9, adult Is this a current diagnosis for this admission?: Yes Plan: Patient counseled on weight loss (6) Obstructive sleep apnea Is this a current diagnosis for this admission?: No Plan: Continue patient on nocturnal BiPAP as at home. - Time Time Spent with patient: 15-24 minutes
[2019-12-25] MEDS: PROMETHAZINE HCL INJ 25 MG/1 ML VIAL IV PRN (16:50)
[2019-12-25] MEDS: SULFAMETHOXAZOLE/TRIMETHOPRIM 800-160 MG TABLET PO SCH (19:01)
[2019-12-25] MEDS: METOCLOPRAMIDE HCL 10 MG TABLET PO PRN (19:01)
[2019-12-25] MEDS: ONDANSETRON HCL INJ/PF 4 MG/2 ML SDV IV PRN (19:50)
[2019-12-25] MEDS ORDERED: AMLODIPINE BESYLATE 5 MG TABLET PO SCH (22:00)
[2019-12-25] MEDS: ATORVASTATIN CALCIUM 20 MG TABLET PO SCH (22:44)
[2019-12-25] MEDS: FLUOXETINE HCL 20 MG CAPSULE PO SCH (22:44)
[2019-12-26] MEDS ORDERED: HYDRALAZINE HCL INJ/PF 20 MG/1 ML SDV IV PRN (02:17)
[2019-12-26] MEDS: METOCLOPRAMIDE HCL 10 MG TABLET PO PRN ×2 (04:34→09:50)
[2019-12-26] MEDS: SULFAMETHOXAZOLE/TRIMETHOPRIM 800-160 MG TABLET PO SCH (06:12)
[2019-12-26 06:51] LABS: ANION GAP 10 (5-19); BLOOD UREA NITROGEN 21 mg/dL (7-20); CALCIUM 8.2 mg/dL (8.4-10.2); CARBON DIOXIDE 29 mmol/L (22-30); CHLORIDE 103 mmol/L (98-107); GLUCOSE 103 mg/dL (75-110); POTASSIUM 3.7 mmol/L (3.6-5.0)
[2019-12-26] MEDS: INSULIN LISPRO 100 UNIT/ML 3 ML VIAL SUBCUT SCH ×2 (09:49→12:28)
[2019-12-26] MEDS: FUROSEMIDE INJ/PF 40 MG/4 ML SDV IV SCH (09:50)
[2019-12-26] MEDS: ASPIRIN 81 MG TABLET, CHEWABLE PO SCH (09:50)
[2019-12-26] MEDS: LOSARTAN POTASSIUM 50 MG TABLET PO SCH (09:50)
[2019-12-26] MEDS: METOPROLOL TARTRATE 50 MG TABLET PO SCH (09:50)
[2019-12-26] MEDS: ENOXAPARIN SODIUM INJ 40 MG/0.4 ML DISP.SYRIN SUBCUT SCH (09:51)
[2019-12-26] MEDS: SILVER SULFADIAZINE 1% CREAM 400 GM TP SCH (09:51)
--- NOTE | 2019-12-26 11:40 | PDOC DISCHARGE SUMMARY ---
Impression - Admit/DC Date/PCP Admission Date/Primary Care Provider: 12/21/19 18:49 MICKI MOONEY PA-C Discharge Date: 12/26/19 - Discharge Diagnosis (1) Diabetes mellitus type 2 in obese Is this a current diagnosis for this admission?: Yes (2) Foot abscess, left Is this a current diagnosis for this admission?: Yes (3) Left leg cellulitis Is this a current diagnosis for this admission?: Yes (4) Morbid obesity with BMI of 60.0-69.9, adult Is this a current diagnosis for this admission?: Yes (5) Hypoxia Is this a current diagnosis for this admission?: Yes (6) Obstructive sleep apnea Is this a current diagnosis for this admission?: Yes - Additional Information Resuscitation Status: Full Code Discharge Diet: Cardiac Discharge Activity: Activity As Tolerated Referrals: MICKI MOONEY PA-C [Primary Care Provider] - 01/03/20 1:30 pm NICK BEARD MD [ACTIVE STAFF] - (Please obtain Echo to assess LV function) Prescriptions: Amlodipine Besylate [Norvasc 5 mg Tablet] 5 mg PO QHS #30 tablet Fluoxetine HCl [Prozac 20 mg Capsule] 20 mg PO QHS #30 capsule Ondansetron [Zofran Odt 4 mg Tablet] 1 - 2 tab PO Q4HP PRN #10 tab.rapdis PRN Reason: Losartan Potassium [Cozaar 50 mg Tablet] 100 mg PO DAILY #30 tablet Furosemide [Lasix 20 mg Tablet] 20 mg PO QAM #30 tablet Sulfamethoxazole/Trimethoprim [Septra-Ds 800-160 mg Tablet] 1 tab PO Q12A #14 tablet Home Medications: Acetaminophen [Tylenol 325 mg Tablet] 650 mg PO Q4HP PRN tablet 11/03/19 Aspirin [Aspirin 81 mg Chewable Tablet] 81 mg PO DAILY tab.chew 11/03/19 Atorvastatin Calcium [Lipitor 20 mg Tablet] 20 mg PO QHS 30 Days #30 tablet 11/03/19 Metformin HCl [Glucophage 500 mg Tablet] 500 mg PO BIDACBS 30 Days #60 tablet 11/03/19 Metoprolol Tartrate [Lopressor 50 mg Tablet] 50 mg PO Q12 30 Days #60 tablet 11/03/19 Silver Sulfadiazine [Silvadene 1% Cream 400 gm] 1 applic TP BID #14 jar 11/03/19 Amlodipine Besylate [Norvasc 5 mg Tablet] 5 mg PO QHS #30 tablet 12/26/19 Fluoxetine HCl [Prozac 20 mg Capsule] 20 mg PO QHS #30 capsule 12/26/19 Furosemide [Lasix 20 mg Tablet] 20 mg PO QAM #30 tablet 12/26/19 Losartan Potassium [Cozaar 50 mg Tablet] 100 mg PO DAILY #30 tablet 12/26/19 Ondansetron [Zofran Odt 4 mg Tablet] 1 - 2 tab PO Q4HP PRN #10 tab.rapdis 12/26/19 Sulfamethoxazole/Trimethoprim [Septra-Ds 800-160 mg Tablet] 1 tab PO Q12A #14 tablet 12/26/19 History of Present Illiness History of Present Illness: JENNA GALLAGHER is a 44 year old male with a history of type 2 diabetes mellitus, hypertension, chronic diabetic foot ulcer, who presents to the hospital with complaints of fever. Of note patient was recently admitted in the hospital for cellulitis and pneumonia. Completed antibiotic course with improvement of symptoms. Patient has been going to the wound clinic for continued management of his foot wound. He was noted to have an abscess in his left foot at the wound clinic yesterday which was incised and drained and packing was placed. He was given antibiotics Bactrim to take at home which he picked up today. However patient decided to come to the hospital today because he was having fevers. Patient notably has some swelling and redness along the lines of his left lower extremity up to his knee. Hospital Course Hospital Course: Patient was admitted with a left foot abscess which was apparently incised and drained prior to admission. He was started on Bactrim. Patient came to the hospital due to worsening symptoms way he was found to have worsening cellulitis and so he was admitted for further management. He was treated with vancomycin and Zosyn and subsequently changed back to Bactrim. Cellulitis apparently is improved. He was seen by surgery during this admission. There apparently was no significant drainage or evidence of necrosis after removal of packing and so no further surgical intervention was done He was noted to be intermittently hypoxic however this was thought to be due to his obesity hypoventilation syndrome. He has been encouraged to use his CPAP machine at all times. Room air oxygen has been more than 90%. Patient has been encouraged to follow-up with his primary care physician for further evaluation if needed. He was also noted to have a elevated BNP and echocardiogram will be ordered as outpatient. Patient was however diuresed with IV Lasix and is been sent home on oral Lasix but will suggest this should be reevaluated and adjusted as needed depend on his clinical findings as well as his echocardiogram. Chest x-ray did suggest pulmonary edema with left lung basal opacity however patient's breathing has been stable and his oxygenation is acceptable. Physical Exam Vital Signs: Temp Pulse Resp BP Pulse Ox 98.5 F 64 20 165/72 H 96 12/26/19 07:54 12/26/19 07:54 12/26/19 07:54 12/26/19 07:54 12/26/19 07:54 Intake & Output 12/25/19 12/26/19 12/27/19 06:59 06:59 06:59 Intake Total 1064 880 Balance 1064 880 Weight 209.7 kg 209.6 kg General appearance: PRESENT: no acute distress, cooperative, morbidly obese Head exam: PRESENT: atraumatic Mouth exam: PRESENT: moist Neck exam: PRESENT: full ROM. ABSENT: JVD Respiratory exam: PRESENT: clear to auscultation charlette, unlabored. ABSENT: wheezes Cardiovascular exam: PRESENT: RRR, +S1, +S2 GI/Abdominal exam: PRESENT: soft. ABSENT: tenderness Rectal exam: PRESENT: deferred Extremities exam: PRESENT: joint swelling, +2 edema Musculoskeletal exam: PRESENT: dislocation - Left more than right erythema and swelling with chronic venous stasis and lymphedema. Left foot covered with dressing Neurological exam: PRESENT: alert, awake, oriented to person, oriented to place, oriented to time, oriented to situation, CN II-XII grossly intact Psychiatric exam: PRESENT: appropriate affect Skin exam: PRESENT: erythema, other - Incision and drainage on the left foot anteriorly Results Laboratory Results: WBC 9.8 10^3/uL (4.0-10.5) 12/24/19 04:39 RBC 4.28 10^6/uL (4.35-5.55) L 12/24/19 04:39 Hgb 11.3 g/dL (13.5-17.0) L 12/24/19 04:39 Hct 34.8 % (37.9-51.0) L 12/24/19 04:39 MCV 81 fl (80-97) 12/24/19 04:39 MCH 26.5 pg (27.0-33.4) L 12/24/19 04:39 MCHC 32.6 g/dL (32.0-36.0) 12/24/19 04:39 RDW 16.9 % (11.5-14.0) H 12/24/19 04:39 Plt Count 149 10^3/uL (150-450) L 12/24/19 04:39 Lymph % (Auto) 10.0 % (13-45) L 12/24/19 04:39 [place] % (Auto) 8.8 % (3-13) 12/24/19 04:39 Eos % (Auto) 0.2 % (0-6) 12/24/19 04:39 Baso % (Auto) 0.2 % (0-2) 12/24/19 04:39 Absolute Neuts (auto) 7.9 10^3/uL (1.7-8.2) 12/24/19 04:39 Absolute Lymphs (auto) 1.0 10^3/uL (0.5-4.7) 12/24/19 04:39 Absolute Monos (auto) 0.9 10^3/uL (0.1-1.4) 12/24/19 04:39 Absolute Eos (auto) 0.0 10^3/uL (0.0-0.6) 12/24/19 04:39 Absolute Basos (auto) 0.0 10^3/uL (0.0-0.2) 12/24/19 04:39 Total Counted 100 12/22/19 08:50 Seg Neutrophils % 80.8 % (42-78) H 12/24/19 04:39 Seg Neuts % (Manual) 92 % (42-78) H 12/22/19 08:50 Band Neutrophils % 2 % (3-5) L 12/22/19 08:50 Lymphocytes % (Manual) 4 % (13-45) L 12/22/19 08:50 Monocytes % (Manual) 2 % (3-13) L 12/22/19 08:50 Eosinophils % (Manual) 0 % (0-6) 12/22/19 08:50 Basophils % (Manual) 0 % (0-2) 12/22/19 08:50 Abs Neuts (Manual) 14.8 10^3/uL (1.7-8.2) H 12/22/19 08:50 Abs Lymphs (Manual) 0.6 10^3/uL (0.5-4.7) 12/22/19 08:50 Abs Monocytes (Manual) 0.3 10^3/uL (0.1-1.4) 12/22/19 08:50 Absolute Eos (Manual) 0.0 10^3/uL (0.0-0.6) 12/22/19 08:50 Abs Basophils (Manual) 0.0 10^3/uL (0.0-0.2) 12/22/19 08:50 Platelet Comment ADEQUATE 12/22/19 08:50 Hypochromasia SLIGHT 12/22/19 08:50 Poikilocytosis SLIGHT 12/21/19 14:56 Anisocytosis 1+ 12/22/19 08:50 Microcytosis SLIGHT 12/22/19 08:50 PT 17.8 SEC (11.4-15.4) H 12/21/19 14:56 INR 1.45 12/21/19 14:56 VBG pH 7.48 (7.30-7.42) H 12/21/19 15:41 VBG pCO2 35.3 mmHg (35-63) 12/21/19 15:41 VBG HCO3 25.6 mmol/L (20-32) 12/21/19 15:41 VBG Base Excess 2.4 mmol/L 12/21/19 15:41 Sodium 142.3 mmol/L (137-145) 12/26/19 06:03 Potassium 3.7 mmol/L (3.6-5.0) 12/26/19 06:03 Chloride 103 mmol/L (98-107) 12/26/19 06:03 Carbon Dioxide 29 mmol/L (22-30) 12/26/19 06:03 Anion Gap 10 (5-19) 12/26/19 06:03 BUN 21 mg/dL (7-20) H 12/26/19 06:03 Creatinine 0.67 mg/dL (0.52-1.25) 12/26/19 06:03 Est GFR ( Amer) > 60 (>60) 12/26/19 06:03 Est GFR (MDRD) Non-Af > 60 (>60) 12/26/19 06:03 Glucose 103 mg/dL (75-110) 12/26/19 06:03 POC Glucose 108 mg/dL (70-110) 12/26/19 07:56 Hemoglobin A1c % 6.6 % (4.7-6.0) H 12/22/19 08:50 Lactic Acid 1.2 mmol/L (0.7-2.1) 12/21/19 20:35 Calcium 8.2 mg/dL (8.4-10.2) L 12/26/19 06:03 Phosphorus 3.7 mg/dL (2.5-4.5) 12/22/19 08:50 Magnesium 2.1 mg/dL (1.6-2.3) 12/26/19 06:03 Total Bilirubin 0.5 mg/dL (0.2-1.3) 12/23/19 06:20 Direct Bilirubin 0.1 mg/dL (0.0-0.4) 12/23/19 06:20 Neonat Total Bilirubin Not Reportable 12/23/19 06:20 Neonat Direct Bilirubin Not Reportable 12/23/19 06:20 Neonat Indirect Bili Not Reportable 12/23/19 06:20 AST 20 U/L (17-59) 12/23/19 06:20 ALT 17 U/L (<50) 12/23/19 06:20 Alkaline Phosphatase 61 U/L (38-126) 12/23/19 06:20 NT-Pro-B Natriuret Pep 2200 pg/mL (<125) H 12/25/19 10:49 Total Protein 6.3 g/dL (6.3-8.2) 12/23/19 06:20 Albumin 3.2 g/dL (3.5-5.0) L 12/23/19 06:20 Stool Occult Blood POSITIVE (NEGATIVE) 12/23/19 18:41 Stl C. Difficile GDH Ag NEGATIVE (NEGATIVE) 12/23/19 18:41 Stl C.difficile Tox A&B NEGATIVE (NEGATIVE) 12/23/19 18:41 12/25/19 10:49 NT-Pro-B Natriuret Pep 2200 H Impressions: Chest X-Ray 12/21/19 00:00 IMPRESSION: Pulmonary edema pattern with left lung base opacity Foot X-Ray 12/21/19 14:33 IMPRESSION: Diffuse soft tissue swelling. The soft tissue radiodensities that project at the level of the midfoot could represent gauze material that is on the skin. Renal Ultrasound 12/22/19 00:00 IMPRESSION: Cannot entirely exclude mild left hydronephrosis. Evaluation tse ited by body habitus. Plan Health Concerns: Follow-up echocardiogram suggested to rule out LV dysfunction. Follow-up evaluation for hypoxia if persistent hypoxemia. Medication management and adjustment of his Lasix as per clinical and imaging findings. Time Spent: Greater than 30 Minutes Stroke Is this a Stroke Patient?: No Acute Heart Failure - Is this a Heart Failure Patient?: No
[2019-12-26 12:28] VITALS: BP 183/72
== END 2019-12-26 12:27 | disposition home health service (06) | DRG 603 ==
LOC: ER 14:03 → EH 18:49 → 5 12-22 19:10
PROVIDERS: ADMIT Internal Medicine; ATTEND Internal Medicine
DX: L02.612 Cutaneous abscess of left foot (principal); N17.9 Acute kidney failure, unspecified; L03.116 Cellulitis of left lower limb; Z68.44 Body mass index [BMI] 60.0-69.9, adult; E11.621 Type 2 diabetes mellitus with foot ulcer; L97.529 Non-pressure chronic ulcer of other part of left foot with unspecified severity; R09.02 Hypoxemia; I10 Essential (primary) hypertension; G47.33 Obstructive sleep apnea (adult) (pediatric); F32.9 Major depressive disorder, single episode, unspecified; E66.01 Morbid (severe) obesity due to excess calories; Z79.84 Long term (current) use of oral hypoglycemic drugs; Z79.82 Long term (current) use of aspirin; Z79.899 Other long term (current) drug therapy
CPT/HCPCS: 36415; 71046; 76770; 80048; 80053; 82272; 82803; 82962; 83036; 83605; 83735; 83880; 84100; 85025; 85610; 87040; 87324; 87449; 93005; 93010; 94660; 96361; 96365; 96367; 96375; 99284; A6266; J0360; J0692; J1170; J1650; J1885; J1940; J2405; J2543; J2550; J2765; J3370; J3490; J7030; J7050; J7060; J7120

== ENCOUNTER → 2020-01-16 | Outpatient (CLI) | payer OTHER ==
--- NOTE | 2020-01-16 16:40 | RADIOLOGY REPORT (SQ) ---
EXAM DESCRIPTION: ARTERIAL LOWER EXTREM BILAT COMPLETED DATE/TIME: 01/16/2020 4:26 pm REASON FOR STUDY: LT FOOT ULCER L97.522 NON-PRS CHRONIC ULCER OTH PRT LEFT FOOT W FAT LAYER COMPARISON: None. TECHNIQUE: Dynamic and static nunez scale and color images acquired of the lower extremity arteries. Additional selected spectral images recorded. LIMITATIONS: Body habitus. Unable to obtain ankle pressures. FINDINGS: RIGHT LEG: INFLOW ARTERIES: Normal, no obstruction evident. FEMORAL ARTERIES:Multiphasic waveforms. Normal, no velocity elevation to suggest focal stenosis. Norm al color Doppler evaluation. No aneurysm. POPLITEAL ARTERY:Multiphasic waveforms. Normal, no velocity elevation to suggest focal stenosis. Norm al color Doppler evaluation. No aneurysm. PATENT TIBIOPERONEAL TRUNK AND 3 VESSEL RUNOFF: Yes, normal vessels. OTHER: No other significant finding. LEFT LEG: INFLOW ARTERIES: Normal, no obstruction evident. FEMORAL ARTERIES:Multiphasic waveforms. Normal, no velocity elevation to suggest focal stenosis. Norm al color Doppler evaluation. No aneurysm. POPLITEAL ARTERY:Multiphasic waveforms. Normal, no velocity elevation to suggest focal stenosis. Norm al color Doppler evaluation. No aneurysm. PATENT TIBIOPERONEAL TRUNK AND 3 VESSEL RUNOFF: Yes, normal vessels. OTHER: No other significant finding. IMPRESSION: No significant stenosis. TECHNICAL DOCUMENTATION: JOB ID: [id number] [employer]- All Rights Reserved Reading location - IP/workstation name: [email or web address]
== END ==
LOC: SP 14:54
PROVIDERS: ATTEND Nurse Practitioner Family
DX: L97.522 Non-pressure chronic ulcer of other part of left foot with fat layer exposed (principal)
CPT/HCPCS: 93925

== ENCOUNTER → 2020-01-17 | Outpatient (CLI) | payer OTHER ==
[2020-01-17 15:40] LABS: ABSOLUTE EOSINOPHILS # (AUTO) 0.2 10^3/uL (0.0-0.6); ABSOLUTE LYMPHOCYTES (AUTO) 1.1 10^3/uL (0.5-4.7); ABSOLUTE MONOCYTES (AUTO) 0.5 10^3/uL (0.1-1.4); ABSOLUTE NEUT (AUTO) 4.1 10^3/uL (1.7-8.2); BASOPHILS % (AUTO) 0.8 % (0-2); HEMATOCRIT 30.8 % (37.9-51.0); MEAN CORPUSCULAR HEMOGLOBIN 27.3 pg (27.0-33.4); MEAN CORPUSCULAR HGB CONC 32.4 g/dL (32.0-36.0); MEAN CORPUSCULAR VOLUME 84 fl (80-97); MONOCYTES % (AUTO) 8.3 % (3-13); PLATELET COUNT 240 10^3/uL (150-450); RED BLOOD COUNT 3.66 10^6/uL (4.35-5.55); RED CELL DISTRIBUTION WIDTH 17.2 % (11.5-14.0); SEGMENTED NEUTROPHILS % (AUTO) 68.9 % (42-78); TOTAL CELLS COUNTED % (AUTO) 100 %
--- NOTE | 2020-01-17 15:55 | RADIOLOGY REPORT (SQ) ---
EXAM DESCRIPTION: CHEST PA/LATERAL COMPLETED DATE/TIME: 01/17/2020 3:34 pm REASON FOR STUDY: TYPE 2 DIABETES MELLITUS WITH FOOT ULCER COMPARISON: 12/21/2019 EXAM PARAMETERS: NUMBER OF VIEWS: two views TECHNIQUE: Digital Frontal and Lateral radiographic views of the chest acquired. RADIATION DOSE: NA LIMITATIONS: none FINDINGS: LUNGS AND PLEURA: No opacities, masses or pneumothorax. No pleural effusion. MEDIASTINUM AND HILAR STRUCTURES: No masses or contour abnormalities. HEART AND VASCULAR STRUCTURES: Heart normal size. No evidence for failure. BONES: No acute findings. HARDWARE: None in the chest. OTHER: No other significant finding. IMPRESSION: NO SIGNIFICANT RADIOGRAPHIC FINDING IN THE CHEST. TECHNICAL DOCUMENTATION: JOB ID: [id number] 2010 [employer]- All Rights Reserved Reading location - IP/workstation name: [email or web address]
[2020-01-17 16:01] LABS: ALBUMIN 3.7 g/dL (3.5-5.0); ALKALINE PHOSPHATASE 80 U/L (38-126); ANION GAP 8 (5-19); ASPARTATE AMINO TRANSFERASE 20 U/L (17-59); BILIRUBIN,DIRECT 0.2 mg/dL (0.0-0.4); BILIRUBIN,TOTAL 0.2 mg/dL (0.2-1.3); BLOOD UREA NITROGEN 20 mg/dL (7-20); C-REACTIVE PROTEIN 22.4 mg/L (<10.0); CALCIUM 8.5 mg/dL (8.4-10.2); CARBON DIOXIDE 31 mmol/L (22-30); CHLORIDE 102 mmol/L (98-107); GLUCOSE 118 mg/dL (75-110); POTASSIUM 3.9 mmol/L (3.6-5.0); TOTAL PROTEIN 6.8 g/dL (6.3-8.2)
--- NOTE | 2020-01-17 16:11 | RADIOLOGY REPORT (SQ) ---
EXAM DESCRIPTION: FOOT LEFT COMPLETE COMPLETED DATE/TIME: 01/17/2020 3:34 pm REASON FOR STUDY: NON-PRS CHRONIC ULCER OTH PRT LEFT FOOT W FAT LAYER EXPOSED L97.522 NON-PRS CHRON IC ULCER OTH PRT LEFT FOOT W FAT LAYER E11.621 TYPE 2 DIABETES MELLITUS WITH FOOT ULCER COMPARISON: 12/21/2019 NUMBER OF VIEWS: Three views. TECHNIQUE: AP, lateral and oblique radiographic images acquired of the left foot. LIMITATIONS: None. FINDINGS: MINERALIZATION: Normal. BONES: Old calcaneal and talar fractures status post ORIF. No evidence of loosening. JOINTS: Intact. SOFT TISSUES: No foreign body. OTHER: No other significant finding. IMPRESSION: No evidence of osteomyelitis. TECHNICAL DOCUMENTATION: JOB ID: [id number] 2010 [employer]- All Rights Reserved Reading location - IP/workstation name: [email or web address]
[2020-01-17 16:25] LABS: ERYTHROCYTE SEDIMENTATION RATE 61 mm/hr (0-15)
== END ==
LOC: WC 15:00
PROVIDERS: ATTEND Nurse Practitioner Family
DX: E11.621 Type 2 diabetes mellitus with foot ulcer (principal); L97.522 Non-pressure chronic ulcer of other part of left foot with fat layer exposed
CPT/HCPCS: 36415; 71046; 80053; 83036; 85025; 85652; 86140

== ENCOUNTER → 2020-02-01 | Outpatient (CLI) | payer OTHER ==
--- NOTE | 2020-02-01 14:24 | RADIOLOGY REPORT (SQ) ---
EXAM DESCRIPTION: FOOT LEFT COMPLETE IMAGES COMPLETED DATE/TIME: 02/01/2020 2:14 pm REASON FOR STUDY: NON-PRS CHRONIC ULCER OTH PRT LEFT FOOT W FAT LAYER EXPOSED L97.522 NON-PRS CHRON IC ULCER OTH PRT LEFT FOOT W FAT LAYER COMPARISON: 01/17/2020. NUMBER OF VIEWS: Three views. TECHNIQUE: AP, lateral and oblique without weight bearing radiographic images acquired of the left f oot. LIMITATIONS: None. FINDINGS: MINERALIZATION: Normal. BONES: No acute fracture or dislocation. No worrisome bone lesions. Surgical changes in the hindfoot with fusion and hardware. JOINTS: No erosions. No michael-articular osteopenia. No chondrocalcinosis. SOFT TISSUES: Diffuse soft tissue swelling. No calcifications. OTHER: No other significant finding. IMPRESSION: DIFFUSE SOFT TISSUE SWELLING. SURGICAL CHANGES AND HARDWARE. NO RADIOGRAPHIC FINDINGS OF OSTEOMYELITIS. TECHNICAL DOCUMENTATION: JOB ID: [id number] 2010 [employer]- All Rights Reserved Reading location - IP/workstation name: [email or web address]
== END ==
LOC: OD 13:48
PROVIDERS: ATTEND Preventive Medicine Undersea and Hyperbaric Medicine
DX: L97.522 Non-pressure chronic ulcer of other part of left foot with fat layer exposed (principal)

== ENCOUNTER → 2020-02-08 | Day surgery (SDC) | payer OTHER ==
--- NOTE | 2020-02-08 12:24 | RADIOLOGY REPORT (SQ) ---
EXAM DESCRIPTION: INJECT FISTULA SINUS TRACT; FOOT LEFT 2 VIEWS; NOT FOR OR FLUORO TO 1 HR IMAGES COMPLETED DATE/TIME: 02/08/2020 11:50 am REASON FOR STUDY: NON-PRESSURE CHRONIC ULCER L97.522; L97.522 NON-PRESSURE CHRONIC ULCER OF OTHER PA RT OF LEFT FOOT WITH FAT LAYE L97.522 NON-PRS CHRONIC ULCER OTH PRT LEFT FOOT W FAT LAYER COMPARISON: None. FLUOROSCOPY TIME: 1.3 minutes of fluoroscopy was used. 5 images saved to PACS. LIMITATIONS: None. PROCEDURE: An 8 Slov[place] pediatric feeding tube was used to canalize the cutaneous fistula opening mona ng the dorsal surface of the left foot. Injection was then made using non ionic contrast. Digital sp ot images saved to PACS. FINDINGS: After canalization of the cutaneous tract, approximately 7 mL of non ionic contrast was in jected into the fistulous tract. Multiple spot images demonstrated no communication of the cutaneous opening to the hardware within the foot and ankle. Contrast does fill a small cavity within the dors um of the foot.. IMPRESSION: No communication between fistulous tract and surgical hardware of the foot and ankle. COMMENT: Quality ID 145: Final reports for procedures using fluoroscopy that document radiation exp osure indices, or exposure time and number of fluorographic images (if radiation exposure indices are not available) TECHNICAL DOCUMENTATION: JOB ID: [id number] 2010 [employer]- All Rights Reserved Reading location - IP/workstation name: [email or web address] [id number]
--- NOTE | 2020-02-08 12:24 | RADIOLOGY REPORT (SQ) ---
EXAM DESCRIPTION: INJECT FISTULA SINUS TRACT; FOOT LEFT 2 VIEWS; NOT FOR OR FLUORO TO 1 HR IMAGES COMPLETED DATE/TIME: 02/08/2020 11:50 am REASON FOR STUDY: NON-PRESSURE CHRONIC ULCER L97.522; L97.522 NON-PRESSURE CHRONIC ULCER OF OTHER PA RT OF LEFT FOOT WITH FAT LAYE L97.522 NON-PRS CHRONIC ULCER OTH PRT LEFT FOOT W FAT LAYER COMPARISON: None. FLUOROSCOPY TIME: 1.3 minutes of fluoroscopy was used. 5 images saved to PACS. LIMITATIONS: None. PROCEDURE: An 8 Welsh pediatric feeding tube was used to canalize the cutaneous fistula opening mona ng the dorsal surface of the left foot. Injection was then made using non ionic contrast. Digital sp ot images saved to PACS. FINDINGS: After canalization of the cutaneous tract, approximately 7 mL of non ionic contrast was in jected into the fistulous tract. Multiple spot images demonstrated no communication of the cutaneous opening to the hardware within the foot and ankle. Contrast does fill a small cavity within the dors um of the foot.. IMPRESSION: No communication between fistulous tract and surgical hardware of the foot and ankle. COMMENT: Quality ID 145: Final reports for procedures using fluoroscopy that document radiation exp osure indices, or exposure time and number of fluorographic images (if radiation exposure indices are not available) TECHNICAL DOCUMENTATION: JOB ID: [id number] 2010 [employer]- All Rights Reserved Reading location - IP/workstation name: [email or web address] [id number]
--- NOTE | 2020-02-08 12:24 | RADIOLOGY REPORT (SQ) ---
EXAM DESCRIPTION: INJECT FISTULA SINUS TRACT; FOOT LEFT 2 VIEWS; NOT FOR OR FLUORO TO 1 HR IMAGES COMPLETED DATE/TIME: 02/08/2020 11:50 am REASON FOR STUDY: NON-PRESSURE CHRONIC ULCER L97.522; L97.522 NON-PRESSURE CHRONIC ULCER OF OTHER PA RT OF LEFT FOOT WITH FAT LAYE L97.522 NON-PRS CHRONIC ULCER OTH PRT LEFT FOOT W FAT LAYER COMPARISON: None. FLUOROSCOPY TIME: 1.3 minutes of fluoroscopy was used. 5 images saved to PACS. LIMITATIONS: None. PROCEDURE: An 8 Hungarian pediatric feeding tube was used to canalize the cutaneous fistula opening mona ng the dorsal surface of the left foot. Injection was then made using non ionic contrast. Digital sp ot images saved to PACS. FINDINGS: After canalization of the cutaneous tract, approximately 7 mL of non ionic contrast was in jected into the fistulous tract. Multiple spot images demonstrated no communication of the cutaneous opening to the hardware within the foot and ankle. Contrast does fill a small cavity within the dors um of the foot.. IMPRESSION: No communication between fistulous tract and surgical hardware of the foot and ankle. COMMENT: Quality ID 145: Final reports for procedures using fluoroscopy that document radiation exp osure indices, or exposure time and number of fluorographic images (if radiation exposure indices are not available) TECHNICAL DOCUMENTATION: JOB ID: [id number] 2010 [employer]- All Rights Reserved Reading location - IP/workstation name: [email or web address] [id number]
== END ==
LOC: RAD 10:55
PROVIDERS: ATTEND Preventive Medicine Undersea and Hyperbaric Medicine
DX: L97.522 Non-pressure chronic ulcer of other part of left foot with fat layer exposed (principal)
CPT/HCPCS: 76000; 76080

== ENCOUNTER 2020-02-16 12:16 | Emergency (ER) | payer OTHER ==
[2020-02-16] MEDS ORDERED: DIPH/PERTUSS(ACELL)/TETANUS VAC/PF 0.5 ML SYR (>=10YO) IM ONE (12:28)
--- NOTE | 2020-02-16 12:30 | ER Document Report ---
ED Medical Screen (RME) - General Chief Complaint: Foot Pain Stated Complaint: RIGHT FOOT PAIN Time Seen by Provider: 02/16/20 12:26 Primary Care Provider: WADE BOSCH DPM [Primary Care Provider] - Follow up as needed Mode of Arrival: Wheelchair Information source: Patient Notes: 44-year-old male morbidly obese with high blood pressure diabetes presents with laceration to the bottom of his right foot. Reports he was outside barefoot when he stepped on something. He reports possibly glass. Reports he looked down and it was bleeding gushing blood. He did go to urgent care in [place] and they sent him here. His right foot is currently wrapped. He is unsure when his last tetanus was. I have greeted and performed a rapid initial assessment of this patient. A comprehensive ED assessment and evaluation of the patient, analysis of test results and completion of the medical decision making process will be conducted by additional ED providers. TRAVEL OUTSIDE OF THE [place] IN LAST 30 DAYS: No - Related Data Allergies/Adverse Reactions: morphine [Morphine] Allergy (Verified 02/16/20 12:28) Hallucinations Past Medical History - Past Medical History Cardiac Medical History: Reports: Hx Hypertension Pulmonary Medical History: Reports: Hx Bronchitis, Hx Pneumonia - bilat, Hx Sleep Apnea Endocrine Medical History: Reports: Hx Diabetes Mellitus Type 1, Hx Diabetes Mellitus Type 2 Renal/ Medical History: Reports: Hx Kidney Stones. Denies: Hx Peritoneal Dialysis Skin Medical History: Reports Hx Psoriasis Psychiatric Medical History: Reports: Hx Depression Past Surgical History: Reports: Hx Orthopedic Surgery - R KNEE X 3, R THUMB X2, L WRIST Physical Exam - Vital signs Vitals: Temp Pulse Resp BP Pulse Ox 97.9 F 98 20 181/87 H 95 02/16/20 12:25 02/16/20 12:25 02/16/20 12:02/16/20 12:25 02/16/20 12:25 Course - Vital Signs Vital signs: Temp Pulse Resp BP Pulse Ox 97.9 F 98 20 181/87 H 95 02/16/20 12:25 02/16/20 12:25 02/16/20 12:25 02/16/20 12:25 02/16/20 12:25 Doctor's Discharge - Discharge Referrals: WADE BOSCH DPM [Primary Care Provider] - Follow up as needed
--- NOTE | 2020-02-16 13:13 | RADIOLOGY REPORT (SQ) ---
EXAM DESCRIPTION: FOOT RIGHT COMPLETE IMAGES COMPLETED DATE/TIME: 02/16/2020 12:52 pm REASON FOR STUDY: laceration, ?fb COMPARISON: None. NUMBER OF VIEWS: Three views. TECHNIQUE: AP, lateral and oblique radiographic images acquired of the right foot. LIMITATIONS: None. FINDINGS: MINERALIZATION: Normal. BONES: No acute fracture or dislocation. No worrisome bone lesions. JOINTS: No effusions. SOFT TISSUES: Soft tissue swelling about the foot. Laceration along the lateral aspect of the hindfo ot. 4 mm radiodensity overlies the superficial lateral hindfoot, possibly on the patient's skin or f oreign body. OTHER: No other significant finding. IMPRESSION: No acute bony abnormality. Laceration along the posterior hindfoot. 4 mm radiodensity overlies superficial lateral hindfoot, po ssibly foreign body. TECHNICAL DOCUMENTATION: JOB ID: [id number] 2010 [employer]- All Rights Reserved Reading location - IP/workstation name: [email or web address]
[2020-02-16] MEDS ORDERED: LIDOCAINE 1% INJ-PF (10 MG/ML) 30 ML SDV INJ ONE (14:51)
[2020-02-16] MEDS ORDERED: ACETAMINOPHEN 325 MG TABLET PO ONE (14:54)
--- NOTE | 2020-02-16 15:00 | ER Document Report ---
ED Extremity Problem, Lower - General Chief Complaint: Foot Injury Stated Complaint: RIGHT FOOT PAIN Time Seen by Provider: 02/16/20 12:26 Primary Care Provider: WADE BOSCH DPM [Primary Care Provider] - Follow up as needed Mode of Arrival: Wheelchair Notes: 44 y/o male presents to the emergency room with laceration to right lateral foot. States was walking barefoot in the yard with his lacerated his foot on unknown object. Unknown last Tetanus vaccine. Bleeding controlled. Went to urgent care referred to ed for evaluation. TRAVEL OUTSIDE OF THE [place] IN LAST 30 DAYS: No - HPI Location: Foot - right lateral Occurred: This morning Where: Home Onset/Duration: Sudden, Persistent Quality of pain: Throbbing Severity: Moderate Pain Level: 5 Context: Barefoot, Laceration Recent injury: Yes Exacerbated by: Movement, Walking Relieved by: Nothing - Related Data Allergies/Adverse Reactions: morphine [Morphine] Allergy (Verified 02/16/20 12:28) Hallucinations Home Medications: lipitor, metformin, amlodipine, lasix, asa Past Medical History - General Information source: Patient - Social History Smoking Status: Never Smoker Chew tobacco use (# tins/day): No Frequency of alcohol use: Rare Drug Abuse: None Lives with: Family Family History: DM, Hypertension Patient has suicidal ideation: No Patient has homicidal ideation: No - Past Medical History Cardiac Medical History: Reports: Hx Hypercholesterolemia, Hx Hypertension Pulmonary Medical History: Reports: Hx Bronchitis, Hx Pneumonia - bilat, Hx Sleep Apnea Endocrine Medical History: Reports: Hx Diabetes Mellitus Type 1, Hx Diabetes Mellitus Type 2 Renal/ Medical History: Reports: Hx Kidney Stones. Denies: Hx Peritoneal Dialysis Musculoskeletal Medical History: Reports Other - lymphadema Skin Medical History: Reports Hx Cellulitis, Reports Hx Psoriasis Psychiatric Medical History: Reports: Hx Depression Past Surgical History: Reports: Hx Orthopedic Surgery - R KNEE X 3, R THUMB X2, L WRIST Review of Systems - Review of Systems Skin: Other - laceration Neurological/Psychological: No symptoms reported -: Yes All other systems reviewed and negative Physical Exam - Vital signs Vitals: Temp Pulse Resp BP Pulse Ox 97.9 F 98 20 181/87 H 95 02/16/20 12:25 02/16/20 12:25 02/16/20 12:25 02/16/20 12:25 02/16/20 12:25 - General General appearance: Appears well, Alert In distress: Mild - Respiratory Respiratory status: No respiratory distress Breath sounds: Normal, Decreased air movement - Cardiovascular Rhythm: Regular Heart sounds: Normal auscultation Murmur: No Pulses: Normal: Dorsalis pedis - Extremities General upper extremity: Normal inspection General lower extremity: Normal strength, Normal temperature, Other - 5 cm laceration to right lower lateral foot - Skin Skin Temperature: Warm Skin Moisture: Dry Skin Color: Normal Skin irregularity: Laceration - 5 cm jagged laceration to right lateral foot w ith areas of exoriation small pieces of glass noted on exterior foot and heel Course - Vital Signs Vital signs: Temp Pulse Resp BP Pulse Ox 97.9 F 98 20 181/87 H 95 02/16/20 12:28 02/16/20 12:25 02/16/20 12:25 02/16/20 12:25 02/16/20 12:25 Procedures - Laceration/Wound Repair Right Lateral Foot Time completed: 16:00 Wound length (cm): 5 Wound's Depth, Shape: Superficial Laceration pre-procedure: Sterile PPE donned, Sterile drapes applied, Shur-Clens applied Anesthetic type: 1% Lidocaine Volume Anesthetic (mLs): 5 Wound explored: Clean, Foreign body removed Irrigated w/ Saline (mLs): 10 Wound Debrided: Extensive Wound Repaired With: Sutures Suture Size/Type: 4:0, Ethilon Number of Sutures: 11 Layer Closure?: No Post-procedure wound care: Sterile dressing applied Post-procedure NV exam normal: Yes Complications: No Notes: 02/16/20 16:01 small pieces of glass removed from sole of right foot and heel of right foot Discharge - Discharge Clinical Impression: Laceration of right foot Qualifiers: Encounter type: initial encounter Qualified Code(s): S91.311A - Laceration without foreign body, right foot, initial encounter Condition: Good Disposition: HOME, SELF-CARE Instructions: Laceration Care ([facility]), Prophylactic Antibiotic ([facility]) Additional Instructions: Keep wound clean and dry can remove dressing in 24 hours then keep wound clean and dry Suture removal in 8 to 10 days Prescriptions: Cephalexin Monohydrate [Keflex 500 mg Capsule] 500 mg PO Q6H 10 Days #40 capsule Referrals: WADE BOSCH DPM [Primary Care Provider] - Follow up as needed
[2020-02-16 16:52] VITALS: BP 142/68
== END 2020-02-16 16:45 | disposition home or self-care (01) ==
LOC: ER 12:16
PROC: 0HQMXZZ Repair Right Foot Skin, External Approach (ICD-10-PCS; principal; 2020-02-16)
DX: S91.311A Laceration without foreign body, right foot, initial encounter (principal); M79.671 Pain in right foot; W45.8XXA Other foreign body or object entering through skin, initial encounter; Y92.007 Garden or yard of unspecified non-institutional (private) residence as the place of occurrence of the external cause; Z88.8 Allergy status to other drugs, medicaments and biological substances; Z79.899 Other long term (current) drug therapy; Z79.84 Long term (current) use of oral hypoglycemic drugs; Z79.82 Long term (current) use of aspirin; I10 Essential (primary) hypertension; E11.9 Type 2 diabetes mellitus without complications
CPT/HCPCS: 99283; 90471; 73630; 90715; 12002; J3490